=== PATIENT | male | born 1950 | race Caucasian/White ===

== ENCOUNTER 2017-08-08 17:26 | Inpatient (IN) ==
--- NOTE | 2017-08-08 17:31 | Emergency Department Note ---
Disposition Clinical Impression: Fistula Disposition: Admitted As Inpatient Condition: Fair Time of Disposition: 19:02 Abdominal Pain HPI - General Chief Complaint: ED Abdominal Pain Stated Complaint: abdominal pain Time Seen by Provider: 08/08/17 17:30 Source: patient Mode of arrival: EMS Limitations: no limitations Nursing Notes Reviewed: Yes Vital Signs Reviewed: Yes - History of Present Illness HPI Narrative: Patient is a 66-year-old male who presents to [facility] ED with a chief complaint of abdominal pain for the last 2 weeks. 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 States he started getting pain in his lower abdomen and over the last 2 days, he has noticed that he has been peeing out bubbles as well as having fevers up to 103.4. Admits to some nausea, no vomiting. No chest pain, difficulty breathing. Patient states he recently had a cardiac stent placed approximately 6 weeks ago. He is on Plavix. Also has a history of hypertension and hyperlipidemia. Pt Subjective Complaint: abdominal pain Onset (ago): day(s) Consistency: intermittent Location: suprapubic Pain Severity: moderate Quality: cramping Radiation: none Migration to: no migration Improves with: nothing Worsens with: nothing Associated symptoms: Reports: nausea, fever, chills, dysuria. Denies: vomiting , diarrhea Treatments prior to arrival: none - Related Data Home Medications Medication Instructions Recorded Confirmed Albuterol Sulfate [Albuterol 2 puff IH QID PRN 08/08/17 08/08/17 Inhaler] Aspirin Enteric Coated [Aspirin EC] 81 mg PO DAILY 08/08/17 08/08/17 Atorvastatin Calcium [Lipitor] 80 mg PO HS 08/08/17 08/08/17 Clopidogrel [Plavix] 75 mg PO DAILY 08/08/17 08/08/17 Lisinopril [Zestril] 5 mg PO DAILY 08/08/17 08/08/17 Methocarbamol [Robaxin] 500 mg PO Q6H PRN 08/08/17 08/08/17 Metoprolol [Lopressor] 12.5 mg PO BID 08/08/17 08/08/17 Nicotine Patch [Nicoderm] 14 mg TD DAILY 08/08/17 08/08/17 Sildenafil Citrate [Viagra] 100 mg PO AD PRN 09/26/17 09/26/17 Allergies Allergy/AdvReac Type Severity Reaction Status Date / Time azithromycin Allergy See Verified 08/08/17 17:35 Comments Penicillins Allergy See Verified 08/08/17 17:35 Comments All systems ED: reviewed and negative except as stated. Abdominal Pain PMH - Past Medical History Medical history: Reports: coronary artery disease, hyperlipidemia, hypertension Physical Exam - General Limitations: no limitations General appearance: alert, in no apparent distress - Head Head exam: atraumatic - Eye Eye exam: Present: normal appearance, EOMI - ENT ENT exam: normal exam, normal oropharynx, mucous membranes moist - Neck Neck exam: Present: normal inspection, full ROM, trachea midline - Chest Chest inspection: Present: normal inspection, symmetric chest wall rise - Respiratory Respiratory exam: Present: normal lung sounds bilaterally - Cardiovascular Cardiovascular exam: Present: regular rate, normal rhythm, normal heart sounds - Abdominal Exam Abdominal exam: Present: soft, Non-Tender. Absent: tenderness, distention, guarding, rebound, rigidity - Extremities Exam Extremities exam: Present: normal inspection, full ROM. Absent: tenderness, pedal edema - Back Exam Back exam: Present: normal inspection, full ROM. Absent: tenderness - Neurological Exam Neurological exam: Present: alert - Psychiatric Psychiatric exam: Present: normal affect, normal mood - Skin Skin exam: Present: warm, dry, intact, normal color Course Course Narrative: Patient seen and examined. Patient with likely fistula extending from the sigmoid to the bladder. There are surrounding inflammatory changes. This is consistent with Patient's lab work was done at the [facility] which shows a leukocytosis of 17.5. I discussed with surgery Dr. Thao. Would like patient to have a Back catheter as well as started on antibiotics. Patient has penicillin allergy so he was placed on ciprofloxacin and Flagyl. Patient has been admitted to the surgery service. Vital Signs Temperature 98.5 F 08/08/17 17:28 Pulse Rate 80 08/08/17 17:28 Respiratory Rate 16 08/08/17 17:28 Blood Pressure 102/63 08/08/17 17:28 O2 Sat by Pulse Oximetry 95 08/08/17 17:28 Temperature 98.5 F 08/08/17 17:28 Pulse Rate 68 08/08/17 18:30 Respiratory Rate 18 08/08/17 19:06 Blood Pressure 143/77 08/08/17 19:06 O2 Sat by Pulse Oximetry 100 08/08/17 18:30 Oxygen Delivery Oxygen Delivery Room Air Abdominal Pain - Medical Records Medical records reviewed: Yes I reviewed the patient's medical records. - Lab Data Lab results reviewed: Yes I reviewed the patient's lab results. - Radiology Data Radiology results reviewed: Yes I reviewed the patient's radiology results. Attestation Statement - Attestation Attestation: I, Hudson Herrera, examined this patient and my medical decision-making was reviewed with the ASSOCIATE ATTORNEY/PA/Advanced Practice Nurse/Resident Physician. I agree with the documented findings, disposition and treatment plan as described except to the extent set forth below. 66-year-old male presents emergency Department with concerns of pain to the lower abdomen. [facility] showing [facility] colovesicular [facility]. Patient states he has had dark brown urine and has pneumaturia over the few weeks. Patient was sent to [facility] for further care and evaluation and likely colonoscopy and cystoscopy. Patient will be admitted to the hospital for further care and evaluation. Patient has an allergy to penicillin, he was given Cipro and Flagyl in the emergency department.
[2017-08-08] MEDS ORDERED: MetroNIDAZOLE 500 MG/100 ML 500 MG/100 ML BAG IVPB ONE (18:10)
[2017-08-08] MEDS ORDERED: Ondansetron 4 MG/2 ML VIAL IVP ONE (20:38)
[2017-08-08] MEDS ORDERED: *HR* OxyCODONE/APAP 10/325 TABLET PO PRN ×2 (20:39→20:50)
[2017-08-08] MEDS ORDERED: Lidocaine Jelly 6ml 1 APPL/6 ML JEL.PF.APP MM ONE (20:50)
[2017-08-08] MEDS ORDERED: Ondansetron 4 MG/2 ML VIAL IVP PRN (20:55)
[2017-08-08] MEDS ORDERED: 0.9 % Sodium Chloride 1,000 ML IV ONE (21:01)
[2017-08-08] MEDS: Nicotine 14 MG PATCH.TD24 TD SCH (22:15)
[2017-08-08] MEDS: MetroNIDAZOLE 500 MG/100 ML 500 MG/100 ML BAG IVPB SCH (23:32)
[2017-08-08] MEDS: Albuterol 2.5 MG/3 ML NEBULIZER IH SCH (23:37)
[2017-08-09 05:52] LABS: Basophils % 0.1 %; Eosinophils % 0.1 %; Hematocrit 39.4 % (37.5-50.1); Hemoglobin 12.9 g/dL (12.9-16.9); Immature Granulocytes % 1.1 % (0-4); Lymphocytes # 0.4 K/mcL (0.6-4.6); Lymphocytes % 4.8 %; Mean Corpuscular HGB Conc 32.7 g/dL (31.6-35.5); Mean Corpuscular Hemoglobin 28.2 pg (28.0-33.3); Mean Corpuscular Volume 86.2 fL (83.0-100.0); Mean Platelet Volume 10.3 fL (9.4-12.4); Monocytes # 0.7 K/mcL (0.0-1.3); Monocytes % 9.6 %; Neutrophils # 6.3 K/mcL (1.6-8.9); Platelet Count 198 K/mcL (140-400); Red Blood Count 4.57 M/mcL (4.19-5.50); Red Cell Distribution Width 12.2 % (11.5-14.5); Segmented Neutrophils % 84.3 %
[2017-08-09 06:12] LABS: BUN/Creatinine Ratio 12 (6-26); Blood Urea Nitrogen 14 mg/dL (8-26); Calcium 8.9 mg/dL (8.6-10.8); Carbon Dioxide 24 mEq/L (19-29); Chloride 103 mEq/L (98-109); Glucose 111 mg/dL (70-99); Osmolality,Calculated 283 (280-300); Potassium 3.9 mEq/L (3.5-4.5); Sodium 136 mEq/L (136-145); eGFR For African Americans > 60 (> 60); eGFR For Non-African Americans > 60 (> 60)
--- NOTE | 2017-08-09 07:38 | Urology - Consult Note ---
Date of Encounter: 08/09/17 Time of Encounter: 07:36 - Assessment and Plan (1) Pneumaturia Current Visit: Yes Status: Acute Assessment and plan: From colovesical fistula (2) Colovesical fistula Current Visit: Yes Status: Acute Assessment and plan: I reviewed the CT images from the [place]. They include an abdominal pelvis CT scan with IV contrast. The images clearly show the site of fistula between the sigmoid colon and dome of the bladder. I feel the images are adequate for diagnosis and the patient does not require a CT urogram with CT cystogram. Still unknown etiology in regards to the cause of the fistula but I suspect diverticulitis based on his recurrent abdominal pain over the last [address] shows bladder wall thickening and there is a suggestion this could represent bladder malignancy. bladder wall thickening is expected in the presence of a fistula and I feel that malignancy is very low on the differential diagnosis. He does have a long history of smoking which can increase his risk of urothelial malignancy however he describes no gross hematuria. Normally similar patients do not require a cystoscopy prior to surgical intervention because there is low yield for pertinent findings as the bladder tends to be extremely abnormal and the location of the fistula. We'll discuss with general surgery team and be available for any assistance. Urology CN:HPI Consult date: 08/08/17 History of present illness: new pt to urology practice. called by Dr Thao last night for cath placement. nurses able to place cath last night with urojet. Main issue is pneumaturia and fever. States the last 3 weeks he is having on and off low-grade temperatures and not feeling well. Began to experience pneumaturia the last 1-2 days. Denies gross hematuria or stool material and urine. States for the last 3 years he has had intermittent sharp abdominal pains that resolved. Denies ever being diagnosed with Crohn's disease, ulcerative colitis, colon cancer,. He underwent a normal colonoscopy 5 years ago at the [facility]. Past Med Surg Social Fam HX - Past Medical History Medical history: coronary artery disease, hyperlipidemia, hypertension Psychiatric history: no psych history - Social History Smoking Status: Current every day smoker Packs per day: 1/2 Smokeless Tobacco Status: Yes Alcohol use: occasionally Drug use: none Medications and Allergies Albuterol Sulfate [Albuterol Inhaler] 2 puff IH QID PRN 08/08/17 [History] Aspirin Enteric Coated [Aspirin EC] 81 mg PO DAILY 08/08/17 [History] Atorvastatin Calcium [Lipitor] 80 mg PO HS 08/08/17 [History] Clopidogrel [Plavix] 75 mg PO DAILY 08/08/17 [History] Lisinopril [Zestril] 5 mg PO DAILY 08/08/17 [History] Methocarbamol [Robaxin] 500 mg PO Q6H PRN 08/08/17 [History] Metoprolol [Lopressor] 12.5 mg PO BID 08/08/17 [History] Nicotine Patch [Nicoderm] 14 mg TD DAILY 08/08/17 [History] Sildenafil Citrate [Viagra] 100 mg PO AD PRN 08/08/17 [History] 3 Allergy/AdvReac Type Severity Reaction Status Date / Time azithromycin Allergy See Verified 08/08/17 17:35 Comments Penicillins Allergy See Verified 08/08/17 17:35 Comments Review of Systems - Constitutional chills, fatigue, fever(s) - EENT Nose, mouth and throat: no dizziness - Cardiovascular no chest pain - Respiratory no cough - Gastrointestinal abdominal pain - Genitourinary dysuria, no hematuria - Musculoskeletal no back pain - Integumentary no erythema - Neurological no confusion - Psychiatric no anxiety - Hematologic/Lymphatic no easy bleeding - Allergic/Immunologic no throat swelling Exam Initial Vital Signs Temp Pulse Resp BP Pulse Ox 98.5 F 80 16 102/63 95 08/08/17 17:28 08/08/17 17:28 08/08/17 17:28 08/08/17 17:28 08/08/17 17:28 - General physical appearance Present: well developed, no distress - Eyes Present: PERRL - ENT Present: normal nares - Neck Present: no masses - Respiratory Present: normal respiratory effort - Cardiovascular Cardiovascular exam IM: RRR - Abdomen Abdomen: Present: soft. Absent: distended (No abdominal tenderness on deep palpation) - Integumentary Present: no rash, no growths, no abnormal pigmentation - Neurologic Present: normal coordination. Absent: disoriented, confused - Additional Findings Back catheter draining clear urine was slightly kacey color Urology Results - Labs 08/09/17 05:05 08/09/17 05:05 Abnormal lab results Lymphocytes # 0.4 K/mcL (0.6-4.6) L 08/09/17 05:05 Glucose 111 mg/dL (70-99) H 08/09/17 05:05 POC Glucose 117 (58-89) H 08/09/17 05:10 Diabetes panel 08/09/17 Range/Units 05:05 Sodium 136 (136-145) mEq/L Potassium 3.9 (3.5-4.5) mEq/L Chloride 103 (98-109) mEq/L Carbon Dioxide 24 (19-29) mEq/L BUN 14 (8-26) mg/dL Creatinine 1.13 (0.72-1.25) mg/dL Glucose 111 H (70-99) mg/dL Calcium 8.9 (8.6-10.8) mg/dL Calcium panel 08/09/17 Range/Units 05:05 Calcium 8.9 (8.6-10.8) mg/dL Pituitary panel 08/09/17 Range/Units 05:05 Sodium 136 (136-145) mEq/L Potassium 3.9 (3.5-4.5) mEq/L Chloride 103 (98-109) mEq/L Carbon Dioxide 24 (19-29) mEq/L BUN 14 (8-26) mg/dL Creatinine 1.13 (0.72-1.25) mg/dL Glucose 111 H (70-99) mg/dL Calcium 8.9 (8.6-10.8) mg/dL Adrenal panel 08/09/17 Range/Units 05:05 Sodium 136 (136-145) mEq/L Potassium 3.9 (3.5-4.5) mEq/L Chloride 103 (98-109) mEq/L Carbon Dioxide 24 (19-29) mEq/L BUN 14 (8-26) mg/dL Creatinine 1.13 (0.72-1.25) mg/dL Glucose 111 H (70-99) mg/dL Calcium 8.9 (8.6-10.8) mg/dL All other labs normal. Consult Discharge Plan - Plan Referrals: [facility] [Outside]
[2017-08-09] MEDS: Albuterol 2.5 MG/3 ML NEBULIZER IH SCH ×3 (07:45→23:19)
[2017-08-09] MEDS: Nicotine 14 MG PATCH.TD24 TD SCH (09:33)
[2017-08-09] MEDS: Aspirin 81 MG TAB.CHEW PO SCH (09:33)
[2017-08-09] MEDS: MetroNIDAZOLE 500 MG/100 ML 500 MG/100 ML BAG IVPB SCH ×2 (09:34→15:33)
--- NOTE | 2017-08-09 09:37 | Cardiology Consult Note ---
<Stephen Romero - Last Filed: 08/09/17 14:13> Date of Encounter: 08/09/17 Time of Encounter: 09:35 Assessment and Plan (1) CAD (coronary artery disease) Current Visit: Yes Status: Acute Patient has a history of MO and stent placement 6 weeks ago. Patient had his stent placed at [facility] in [place]. Patient denies any chest pain, worsening of his shortness of breath beyond baseline, palpitations or any other cardiac complaints. Currently on plavix and aspirin. Cardiology was consulted for recommendation on stopping plavix prior to surgery since the patient had a recent catheterization with stent placement. Further medical records have been requested from [facility] in [place] where the patient states he had his stent placed. If the surgery is not emergent the plavix can be stopped and then lovenox started for 5 days prior to surgery Qualifiers: Coronary Disease-Associated Artery/Lesion type: unspecified vessel or lesion type [place] vs. transplanted heart: unspecified whether [place] or transplanted heart Associated angina: angina presence unspecified Qualified Code(s): I25.10 - Atherosclerotic heart disease of [place] coronary artery without angina pectoris (2) HTN (hypertension) Current Visit: Yes Status: Acute The patient has a history of HTN and takes lisinopril and metoprolol. The patients most recent BP was 113/56. His blood pressure appears to be well controlled at this time. Continue with current medical management. Qualifiers: Hypertension type: unspecified Qualified Code(s): I10 - Essential (primary ) hypertension (3) Hyperlipidemia Current Visit: Yes Status: Acute Patient has a history of high cholesterol and is currently taking atorvastatin. Continue with current medical managment. Qualifiers: Hyperlipidemia type: unspecified Qualified Code(s): E78.5 - Hyperlipidemia , unspecified (4) Colovesical fistula Current Visit: Yes Status: Acute Patient was diagnosed with a Colovesical fistula. This is being followed by surgery and urology. (5) Pneumaturia Current Visit: Yes Status: Acute Patient had bubbles in his urine and is likely from the colovesicular fistula. Back catheter in place. Urology has been consulted on this patient. (6) Tobacco abuse Current Visit: Yes Status: Acute Patient has a long standing history of tobacco use. States that he had smoked 2 ppd for 40 years until his recent MO and stent placement. Since his MO he has been smoking 3-4 cigarettes per day. He has a perscription for nicoderm patches but states he has not started using them yet. A Nicoderm patch is ordered for while the patient is in the hospital. Discussion w patient/family: The assessment and plan as outlined above was discussed with the patient and/or family members who expressed understanding and agreement. All questions were answered. Thank you for involving us in the care of your patient. Please call with any questions. History of Present Illness Consult date: 08/09/17 Requesting physician: Alexandria Barillas Consult reason: Recommendation for anticoagulation for surgery Chief complaint: Abdominal Pain/Plavix recommendation History of present illness: Mr. Alamo is a 66 year old male that presented to the [facility] with suprapubic abdominal pain, fever and pneumaturia. Patient had been having symptoms for approximately 1 week. He described the pain as achey and rated it as 5/10. Patient also states that he was having bubbles in his urine. Currently rates his abdominal pain as a 2/10. CT scan was obtained at the [facility] which reportedly showed a possible colovesical fistula. The patient was then transfer to the ER at [place]. Cardiology was consulted for recommendation of the patients plavix for surgery. Six weeks ago the patient states that he was just sitting around his house and developed a stabbing pain all over his chest. He stated that the pain radiated to his left shoulder, arm and into his back. He rated the pain as an 8/10. Patient denies taking anything for his chest pain. He states that he did become short of breath, diaphoretic but had no nausea or vomiting with this episode. Patient states that he then went to [facility] and then was transfered to [facility] where he had one stent placed. The patient is unsure of which vessel the stent was in or if it was CATRACHO or a bare metal stent. However his girlfriend thought it was on the right side. Patient states that he had been having chest pain like this for 2 weeks prior to his MO and not feeling well. He also states that he has been having intermittent chest pain for the past 2 years and felt like the pain was similar to all other episodes of chest pain but was just a more intense pain. Patient states that he had no known cardiac history prior to having his MO and stent placed. Patient states he was suppose to follow up with a cokeman 30 days after his stent being placed but has been unable to follow up because of insurance reasons and has not been able to see a cokeman at the [facility]. Patient currently denies any chest pain, shortness of breath, or palpitations. Past Med Surg Social Fam HX - Past Medical History Medical history: coronary artery disease, hyperlipidemia, hypertension Psychiatric history: no psych history - Social History Smoking Status: Current every day smoker Packs per day: 1/2 Smokeless Tobacco Status: Yes Alcohol use: occasionally Drug use: none Medications and Allergies Albuterol Sulfate [Albuterol Inhaler] 2 puff IH QID PRN 08/08/17 [History] Aspirin Enteric Coated [Aspirin EC] 81 mg PO DAILY 08/08/17 [History] Atorvastatin Calcium [Lipitor] 80 mg PO HS 08/08/17 [History] Clopidogrel [Plavix] 75 mg PO DAILY 08/08/17 [History] Lisinopril [Zestril] 5 mg PO DAILY 08/08/17 [History] Methocarbamol [Robaxin] 500 mg PO Q6H PRN 08/08/17 [History] Metoprolol [Lopressor] 12.5 mg PO BID 08/08/17 [History] Nicotine Patch [Nicoderm] 14 mg TD DAILY 08/08/17 [History] Sildenafil Citrate [Viagra] 100 mg PO AD PRN 08/08/17 [History] 3 Allergy/AdvReac Type Severity Reaction Status Date / Time azithromycin Allergy See Verified 08/08/17 17:35 Comments Penicillins Allergy See Verified 08/08/17 17:35 Comments All Systems Review: A 10-system review of systems was performed and is negative for pertinent findings except as documented above in the HPI. - Constitutional Constitutional: chills, fever(s) - Cardiovascular Cardiovascular: dyspnea on exertion, no chest pain at rest, no chest pain with exertion, no dyspnea at rest, no irregular heart rhythm ( ), no leg edema, no palpitations - Respiratory Respiratory: dyspnea (Patient state that he has shortness of breath due to his COPD) - Gastrointestinal Gastrointestinal: abdominal pain (suprapubic), no hematochezia, no melena, no nausea - Genitourinary Genitourinary: other (Dark colored urine with bubbles in it) Physical Examination Vital Signs, Last 4 Hours Temp Pulse Resp BP Pulse Ox 08/09/17 06:39 100.4 F H 81 18 110/54 94 General: Conversant, No Apparent Distress HEENT: Atraumatic, Normocephaly, Mucus Membranes Moist Neck: No JVD, Normal carotid pulses Cardiac: Reg Rate and Rhythm, Normal S1 and S2, No Murmur Lungs: Normal Breath Sounds, No Wheeze, Rales, Rhonchi Neuro: Alert and responsive, No focal deficits noted Abdomen: Soft, Other (Mild tenderness of suprapubic area) Skin: No rashes noted on visualized skin Extremities: No Clubbing, No Cyanosis, No Edema, Normal Pulses Results 08/09/17 05:05 08/09/17 05:05 Lab Results 08/09/17 08/09/17 05:05 05:05 WBC 7.5 Hgb 12.9 Hct 39.4 Plt Count 198 Sodium 136 Potassium 3.9 Chloride 103 Carbon Dioxide 24 BUN 14 Creatinine 1.13 Glucose 111 H Calcium 8.9 Consult Discharge Plan - Plan Referrals: [facility] [Outside] <Hussein Bird - Last Filed: 08/09/17 14:45> Date of Encounter: 08/09/17 Assessment and Plan Discussion w patient/family: The assessment and plan as outlined above was discussed with the patient and/or family members who expressed understanding and agreement. All questions were answered. Thank you for involving us in the care of your patient. Please call with any questions. History of Present Illness History of present illness: Mr. Alamo is a 66 year old male All Systems Review: A 10-system review of systems was performed and is negative for pertinent findings except as documented above in the HPI. Physical Examination Vital Signs, Last 4 Hours Temp Pulse Resp BP Pulse Ox 08/09/17 11:09 100.2 F H 76 18 113/56 94 Results 08/09/17 05:05 08/09/17 05:05 Lab Results 08/09/17 08/09/17 05:05 05:05 WBC 7.5 Hgb 12.9 Hct 39.4 Plt Count 198 Sodium 136 Potassium 3.9 Chloride 103 Carbon Dioxide 24 BUN 14 Creatinine 1.13 Glucose 111 H Calcium 8.9 - Attending Attestation PT seen and examined independently, chart reviewed, essentially agree with findings listed, my evaluation as follows: CC bubbles in urine Pt complains of diffuse abdominal pain, worsening over the last two weeks, most prominent in bilat lower quadrants, 6/10 at most severe, comes and goes, worse with activity, improves with rest, has improved since hospital admission. Pt also complains of bubbles in urine when he goes to the bathroom. Abdominal pain has improved following placement of folely catheter. He also reports approximately six weeks ago experienced precordial chest pain, 8/10, provoked by exercise, lasting up to ten minutes, relieved with rest assoicated with shortness of breath, for which he was evaluated in [facility], transferred to [facility] for urgent LHC/possibe, found to have severe single vessel disease, had stent placement in unknown vessel, PT is unable to identify CATRACHO vx bare metal at this time. Chest pain has resolved following PCI He was able to increase exercise back to full activities of daily living without provocation of symptoms. PE: Agree with findings as listed: IMP: 1. Anal fistula, anticipating surgical intervention, pt is at low risk for planned procedure from cardiac perspective 2. Dual antiplatelet tx following stent placement x 1 year, will switch to lovenox x 5 days before elective procedure. 3. CAD: severe single vessel disease with recent PCI at [facility], old records requested, unclear if had bare metal or CATRACHO, records requested, will begin lovenox, hold plavix, proceed with surgical intervention in five days. When previous records arrive, if has bare metal stent, has been thirty days and could stop lovenox and proceed with surgery in five days. If pt has drug eluting stent, recommend resume plavix as soon as surgically possible post op with 300mg loading dose x 1, then resume 75 mg q d. l
--- NOTE | 2017-08-09 10:30 | General Surg History&Physical ---
<Alexandria Barillas - Last Filed: 08/09/17 18:18> Date of Encounter: 08/09/17 Time of Encounter: 06:55 Assessment and Plan (1) Colovesical fistula Current Visit: Yes Status: Acute Patient has a chief complaint of suprapubic abdominal pain for [address] scan at [place] showed colovestical fistula, most likely due to diverticulosis. Patient has been febrile and was started on Cipro and Flagyl. Urology was consulted and believes patient does not require a CT urogram and CT cystogram as images clearly show the site of fistula between the sigmoid colon and the dome of the bladder. Patient will require surgery to resolve the fistula. Cardiology was consulted due to patient having recent cardiac catheter with stent placement 6 weeks ago and is on Plavix and aspirin. Cardiology recommended stopping Plavix and starting Lovenox for 5 days until surgery. Plan: - Colonoscopy on Monday will start bowel prep tomorrow - Cardiology and UG already consulted - Plavix stopped and Lovenox initiated. - plan for OR on Monday (2) Pneumaturia Current Visit: Yes Status: Acute Secondary to cholovestical fistula. CT of the abdomen and pelvis shows abnormal gas seen within the bladder. Lea currently present. Will plan for surgical repair on Monday. (3) CAD (coronary artery disease) Current Visit: Yes Status: Acute Patient heart catheter with cardiac stent placed 6 weeks ago. Patient is on Plavix and aspirin for therapy. Per Cardiology's recommendations, plavix stopped 08/09 and Lovenox added. Qualifiers: Coronary Disease-Associated Artery/Lesion type: unspecified vessel or lesion type [place] vs. transplanted heart: unspecified whether [place] or transplanted heart Associated angina: angina presence unspecified Qualified Code(s): I25.10 - Atherosclerotic heart disease of [place] coronary artery without angina pectoris (4) HTN (hypertension) Current Visit: Yes Status: Acute We will continue home medications of metoprolol 12.5 mg by mouth twice a day and lisinopril 5 mg by mouth daily. Qualifiers: Hypertension type: unspecified Qualified Code(s): I10 - Essential (primary ) hypertension (5) Hypercholesteremia Current Visit: Yes Status: Acute We will continue home medication of Lipitor 80 mg by mouth daily. (6) Tobacco abuse Current Visit: Yes Status: Acute Patient given nicotine patch 14 mg daily. (7) Diverticulosis Current Visit: Yes Status: Acute CT of the abdomen and pelvis from the [place] shows extensive diverticulosis of the sigmoid colon and to a lesser degree the remainder of the colon. Most likely cause of the colovesticular fistula. Qualifiers: Diverticulosis site: diverticulosis of large intestine Qualified Code(s): K57.30 - Diverticulosis of large intestine without perforation or abscess without bleeding History of Present Illness HPI: Mr. Alamo is a 66 year old male with a past medical history of cardiac stent 6 weeks ago, hypertension, hyperlipidemia came in with a chief complaint of abdominal pain 2 weeks. Patient was a [place] transfer to [place] ED for a CT finding of a vesticulo-sigmoid fistula admitted to the surgical service. Patient states that he has been having abdominal pain for the past 2 weeks with associated nausea, vomiting. Four days ago, patient began to see bubbles in his urine and worsening of lower abdominal pain. Associated fevers 103.4. Patient denies SOB, chest pain, dizziness. CT of abdomen from [place] showed bladder wall thickening up to 1 cm in the cradiad left aspect. Abnormal gas in the bladder. Lucency consistent with air in a fistulous tract between the abnormally thickened bladder and the EKG sent undersurface of the sigmoid colon. There is extensive diverticulosis of the sigmoid colon into a lesser degree the remainder of the colon. Additionally there is a wall thickening of the sigmoid colon in surrounding strandy inflammatory change between the sigmoid colon and the bladder. Prostate is enlarged and heterogeneous. There is a moderate size hiatal hernia. Past Med Surg Social Fam HX - Past Medical History Medical history: coronary artery disease, hyperlipidemia, hypertension Psychiatric history: no psych history - Social History Smoking Status: Current every day smoker Packs per day: 1/2 Smokeless Tobacco Status: Yes Alcohol use: occasionally Drug use: none Medications and Allergies Albuterol Sulfate [Albuterol Inhaler] 2 puff IH QID PRN 08/08/17 [History] Aspirin Enteric Coated [Aspirin EC] 81 mg PO DAILY 08/08/17 [History] Atorvastatin Calcium [Lipitor] 80 mg PO HS 08/08/17 [History] Clopidogrel [Plavix] 75 mg PO DAILY 08/08/17 [History] Lisinopril [Zestril] 5 mg PO DAILY 08/08/17 [History] Methocarbamol [Robaxin] 500 mg PO Q6H PRN 08/08/17 [History] Metoprolol [Lopressor] 12.5 mg PO BID 08/08/17 [History] Nicotine Patch [Nicoderm] 14 mg TD DAILY 08/08/17 [History] Sildenafil Citrate [Viagra] 100 mg PO AD PRN 08/08/17 [History] 3 Allergy/AdvReac Type Severity Reaction Status Date / Time azithromycin Allergy See Verified 08/08/17 17:35 Comments Penicillins Allergy See Verified 08/08/17 17:35 Comments Review of Systems All systems PM: A 10-system review of systems was performed and is negative for pertinent findings except as documented above in the HPI. - Constitutional fever(s) General Surgery Exam Initial Vital Signs Temp Pulse Resp BP Pulse Ox 98.5 F 80 16 102/63 95 08/08/17 17:28 08/08/17 17:28 08/08/17 17:28 08/08/17 17:28 08/08/17 17:28 - Additional Findings Constitutional: Alert, in no acute distress, well nourished, well developed. Head: Normocephalic, atraumatic, normal contour and symmetric, no masses, lesions or scars Heart: Normal, regular rate and rhythm, no murmurs Lungs: + scattered wheezing, no , rales, or rhonchi Abdomen: tender suprapubically, Soft, nondistended, and no masses palpable, bowel sounds present and normal, no guarding or rigidity. Extremities: No clubbing, cyanosis, or edema, radial pulse +2/4, capillary refill <2sec. Skin: Skin warm and dry, no lesions, no rashes, no jaundice : lea present at urethral meatus, scrotum without edema, Neurologic: Cranial nerves II through XII grossly intact, no focal deficits, strength within normal limits in all extremities Psych: Cooperative with exam, good eye contact, cognitive function intact, judgment good insight good, speech clear, thought process logical, and goal directed Results - Labs 08/09/17 05:05 08/09/17 05:05 Abnormal lab results Lymphocytes # 0.4 K/mcL (0.6-4.6) L 08/09/17 05:05 Glucose 111 mg/dL (70-99) H 08/09/17 05:05 POC Glucose 117 (58-89) H 08/09/17 05:10 Diabetes panel 08/09/17 Range/Units 05:05 Sodium 136 (136-145) mEq/L Potassium 3.9 (3.5-4.5) mEq/L Chloride 103 (98-109) mEq/L Carbon Dioxide 24 (19-29) mEq/L BUN 14 (8-26) mg/dL Creatinine 1.13 (0.72-1.25) mg/dL Glucose 111 H (70-99) mg/dL Calcium 8.9 (8.6-10.8) mg/dL Calcium panel 08/09/17 Range/Units 05:05 Calcium 8.9 (8.6-10.8) mg/dL Pituitary panel 08/09/17 Range/Units 05:05 Sodium 136 (136-145) mEq/L Potassium 3.9 (3.5-4.5) mEq/L Chloride 103 (98-109) mEq/L Carbon Dioxide 24 (19-29) mEq/L BUN 14 (8-26) mg/dL Creatinine 1.13 (0.72-1.25) mg/dL Glucose 111 H (70-99) mg/dL Calcium 8.9 (8.6-10.8) mg/dL Adrenal panel 08/09/17 Range/Units 05:05 Sodium 136 (136-145) mEq/L Potassium 3.9 (3.5-4.5) mEq/L Chloride 103 (98-109) mEq/L Carbon Dioxide 24 (19-29) mEq/L BUN 14 (8-26) mg/dL Creatinine 1.13 (0.72-1.25) mg/dL Glucose 111 H (70-99) mg/dL Calcium 8.9 (8.6-10.8) mg/dL All other labs normal. <Brice Thao - Last Filed: 08/11/17 15:25> Date of Encounter: 08/09/17 History of Present Illness HPI: Mr. Alamo is a 66 year old male Review of Systems All systems PM: A 10-system review of systems was performed and is negative for pertinent findings except as documented above in the HPI. General Surgery Exam Initial Vital Signs Temp Pulse Resp BP Pulse Ox 98.5 F 80 16 102/63 95 08/08/17 17:28 08/08/17 17:28 08/08/17 17:28 08/08/17 17:28 08/08/17 17:28 Results - Labs 08/11/17 05:11 08/11/17 05:11 Abnormal lab results Hgb 11.9 g/dL (12.9-16.9) L 08/11/17 05:11 Hct 35.8 % (37.5-50.1) L 08/11/17 05:11 MCH 27.9 pg (28.0-33.3) L 08/11/17 05:11 Monocytes # 1.4 K/mcL (0.0-1.3) H 08/11/17 05:11 Sodium 133 mEq/L (136-145) L 08/11/17 05:11 Potassium 3.3 mEq/L (3.5-4.5) L 08/11/17 05:11 BUN 7 mg/dL (8-26) L 08/11/17 05:11 Glucose 105 mg/dL (70-99) H 08/11/17 05:11 POC Glucose 104 (58-89) H 08/11/17 11:41 Calculated Osmolality 274 (280-300) L 08/11/17 05:11 Diabetes panel 08/11/17 Range/Units 05:11 Sodium 133 L (136-145) mEq/L Potassium 3.3 L (3.5-4.5) mEq/L Chloride 102 (98-109) mEq/L Carbon Dioxide 23 (19-29) mEq/L BUN 7 L (8-26) mg/dL Creatinine 0.89 (0.72-1.25) mg/dL Glucose 105 H (70-99) mg/dL Calcium 8.8 (8.6-10.8) mg/dL Calcium panel 08/11/17 Range/Units 05:11 Calcium 8.8 (8.6-10.8) mg/dL Pituitary panel 08/11/17 Range/Units 05:11 Sodium 133 L (136-145) mEq/L Potassium 3.3 L (3.5-4.5) mEq/L Chloride 102 (98-109) mEq/L Carbon Dioxide 23 (19-29) mEq/L BUN 7 L (8-26) mg/dL Creatinine 0.89 (0.72-1.25) mg/dL Glucose 105 H (70-99) mg/dL Calcium 8.8 (8.6-10.8) mg/dL Adrenal panel 08/11/17 Range/Units 05:11 Sodium 133 L (136-145) mEq/L Potassium 3.3 L (3.5-4.5) mEq/L Chloride 102 (98-109) mEq/L Carbon Dioxide 23 (19-29) mEq/L BUN 7 L (8-26) mg/dL Creatinine 0.89 (0.72-1.25) mg/dL Glucose 105 H (70-99) mg/dL Calcium 8.8 (8.6-10.8) mg/dL All other labs normal. - Attending Attestation I examined this patient and my medical decision-making was reviewed with the Resident Physician. I agree with the documented findings, disposition and treatment plan as described except to the extent set forth below. The patient is seen and evaluated with the resident. I personally reviewed his CT scan. The patient's findings are consistent with colovesical fistula. Lea catheter will be placed. After a period of antibiotics the patient will likely require resection of colovesical fistula. Management of the bladder portion will be assessed by urology. Brice Thao MD FACS
[2017-08-09] MEDS: *HR* HYDROmorphone (PF) 1 MG/ML SYRINGE IVP PRN ×2 (11:38→17:15)
[2017-08-09] MEDS: *HR* Enoxaparin 80 MG/0.8 ML SYRINGE SQ SCH (17:14)
[2017-08-09] MEDS ORDERED: Ibuprofen 600 MG TABLET PO ONE (20:32)
[2017-08-10] MEDS: MetroNIDAZOLE 500 MG/100 ML 500 MG/100 ML BAG IVPB SCH ×3 (01:52→15:24)
[2017-08-10 05:41] LABS: Basophils % 0.4 %; Eosinophils # 0.1 K/mcL (0.0-0.6); Eosinophils % 1.9 %; Hematocrit 34.8 % (37.5-50.1); Hemoglobin 11.6 g/dL (12.9-16.9); Immature Granulocytes % 1.4 % (0-4); Lymphocytes # 1.2 K/mcL (0.6-4.6); Lymphocytes % 24.6 %; Mean Corpuscular HGB Conc 33.3 g/dL (31.6-35.5); Mean Corpuscular Hemoglobin 28.5 pg (28.0-33.3); Mean Corpuscular Volume 85.5 fL (83.0-100.0); Monocytes # 0.7 K/mcL (0.0-1.3); Monocytes % 15.1 %; Neutrophils # 2.7 K/mcL (1.6-8.9); Platelet Count 204 K/mcL (140-400); Red Blood Count 4.07 M/mcL (4.19-5.50); Red Cell Distribution Width 12.1 % (11.5-14.5); Segmented Neutrophils % 56.6 %
[2017-08-10 05:56] LABS: BUN/Creatinine Ratio 11 (6-26); Blood Urea Nitrogen 12 mg/dL (8-26); Calcium 8.7 mg/dL (8.6-10.8); Carbon Dioxide 23 mEq/L (19-29); Chloride 104 mEq/L (98-109); Glucose 105 mg/dL (70-99); Osmolality,Calculated 280 (280-300); Phosphorous 3.1 mg/dL (2.3-4.7); Potassium 3.4 mEq/L (3.5-4.5); Sodium 135 mEq/L (136-145); eGFR For African Americans > 60 (> 60); eGFR For Non-African Americans > 60 (> 60)
[2017-08-10] MEDS: Albuterol 2.5 MG/3 ML NEBULIZER IH SCH ×3 (07:42→22:50)
[2017-08-10] MEDS: *HR* HYDROmorphone (PF) 1 MG/ML SYRINGE IVP PRN ×2 (08:05→13:44)
[2017-08-10] MEDS: Aspirin 81 MG TAB.CHEW PO SCH (08:25)
[2017-08-10] MEDS: Nicotine 14 MG PATCH.TD24 TD SCH (08:26)
--- NOTE | 2017-08-10 08:49 | Cardiology Progress Note ---
<Stephen Romero - Last Filed: 08/10/17 12:01> Date of Encounter: 08/10/17 Time of Encounter: 08:46 Assessment and Plan (1) CAD (coronary artery disease) Current Visit: Yes Status: Acute Patient has a history of MN and stent placement 6 weeks ago. Patient had his stent placed at [facility] in [place]. Patient denies any chest pain, worsening of his shortness of breath beyond baseline, palpitations or any other cardiac complaints. Currently on plavix and aspirin. Cardiology was consulted for recommendation on stopping plavix prior to surgery since the patient had a recent catheterization with stent placement. Further medical records have been obtained from [facility] in [place] where the patient states he had his stent placed. Per the report there was a CATRACHO stent placed inthe proximal LAD. If the surgery is not emergent the plavix can be stopped and then lovenox started for 5 days prior to surgery. Qualifiers: Coronary Disease-Associated Artery/Lesion type: unspecified vessel or lesion type [place] vs. transplanted heart: unspecified whether [place] or transplanted heart Associated angina: angina presence unspecified Qualified Code(s): I25.10 - Atherosclerotic heart disease of [place] coronary artery without angina pectoris (2) HTN (hypertension) Current Visit: Yes Status: Acute The patient has a history of HTN and takes lisinopril and metoprolol. The patients most recent BP was 107/66. His blood pressure appears to be well controlled at this time. Continue with current medical management. Qualifiers: Hypertension type: unspecified Qualified Code(s): I10 - Essential (primary ) hypertension (3) Hyperlipidemia Current Visit: Yes Status: Acute Patient has a history of high cholesterol and is currently taking atorvastatin. Continue with current medical managment. Qualifiers: Hyperlipidemia type: unspecified Qualified Code(s): E78.5 - Hyperlipidemia , unspecified (4) Colovesical fistula Current Visit: Yes Status: Acute Patient was diagnosed with a Colovesical fistula. My understanding per surgery note is that they are planning for surgery on Monday. This is being followed by surgery and urology. (5) Pneumaturia Current Visit: Yes Status: Acute Patient had bubbles in his urine and is likely from the colovesicular fistula. Back catheter in place. Urology has been consulted on this patient. (6) Tobacco abuse Current Visit: Yes Status: Acute Patient has a long standing history of tobacco use. States that he had smoked 2 ppd for 40 years until his recent MN and stent placement. Since his MN he has been smoking 3-4 cigarettes per day. He has a perscription for nicoderm patches but states he has not started using them yet. A Nicoderm patch is ordered for while the patient is in the hospital. Discussion w patient/family: The assessment and plan as outlined above was discussed with the patient and/or family members who expressed understanding and agreement. All questions were answered. Thank you for involving us in the care of your patient. Please call with any questions. Subjective Principal diagnosis: Colovesical Fistula Interval history: Patient states that he did well overnight. He states that he is feeling well at this time. Patient denies having any abdominal pain while laying in bed. Patient denies having any chest pain, worsening of his shortness of breath, or palpitations. Patient does states that he has not had a bowel movement while he has been here. He also stated he has a cough that is worse in the mornings. He did feel like he had a fever last night. Otherwise the patient states that he is feeling well and has no complaints related to his heart. Objective Vital Signs, Last 4 Hours Temp Pulse Resp BP Pulse Ox 08/10/17 08:30 63 08/10/17 06:44 97.4 F L 59 15 107/66 96 General: Conversant, No Apparent Distress HEENT: Atraumatic, Normocephaly Neck: No JVD, Normal carotid pulses Cardiac: Reg Rate and Rhythm, Normal S1 and S2, No Murmur Lungs: Normal Breath Sounds, No Wheeze, Rales, Rhonchi Neuro: Alert and responsive, No focal deficits noted Abdomen: Soft, Other (Mild tenderness in the suprapubic area) Skin: No rashes noted on visualized skin Extremities: No Clubbing, No Cyanosis, No Edema, Normal Pulses Results 08/10/17 05:22 08/10/17 05:22 Lab Results 08/10/17 08/10/17 05:22 05:22 WBC 4.8 Hgb 11.6 L Hct 34.8 L Plt Count 204 Sodium 135 L Potassium 3.4 L Chloride 104 Carbon Dioxide 23 BUN 12 Creatinine 1.09 Glucose 105 H Calcium 8.7 Magnesium 2.0 - Imaging and Cardiology Echo: report reviewed Cardiac cath: report reviewed - VTE Documentation of Mechanical Device: Intermittent pneumatic compression device Consult Discharge Plan - Plan Referrals: [facility] [Outside] <Hussein Bird - Last Filed: 08/10/17 19:39> Date of Encounter: 08/10/17 Time of Encounter: 16:20 Assessment and Plan (1) CAD (coronary artery disease) Current Visit: Yes Status: Acute Patient has a history of MN and stent placement 6 weeks ago. Patient had his stent placed at [facility] in [place]. Patient denies any chest pain, worsening of his shortness of breath beyond baseline, palpitations or any other cardiac complaints. Currently on plavix and aspirin. Cardiology was consulted for recommendation on stopping plavix prior to surgery since the patient had a recent catheterization with stent placement. Further medical records have been obtained from [facility] in [place] where the patient states he had his stent placed. Per the report there was a CATRACHO stent placed inthe proximal LAD. If the surgery is not emergent the plavix can be stopped and then lovenox started for 5 days prior to surgery. Qualifiers: Coronary Disease-Associated Artery/Lesion type: [place] artery [place] vs. transplanted heart: [place] heart Associated angina: with stable angina Qualified Code(s): I25.118 - Atherosclerotic heart disease of [place] coronary artery with other forms of angina pectoris Discussion w patient/family: The assessment and plan as outlined above was discussed with the patient and/or family members who expressed understanding and agreement. All questions were answered. Thank you for involving us in the care of your patient. Please call with any questions. Subjective Interval history: Agree with above. Results 08/10/17 05:22 08/10/17 05:22 Lab Results 08/10/17 08/10/17 05:22 05:22 WBC 4.8 Hgb 11.6 L Hct 34.8 L Plt Count 204 Sodium 135 L Potassium 3.4 L Chloride 104 Carbon Dioxide 23 BUN 12 Creatinine 1.09 Glucose 105 H Calcium 8.7 Magnesium 2.0 - Imaging and Cardiology Cardiac cath: other ([facility] reports from [facility], CATRACHO placed proximal LAD)
[2017-08-10] MEDS: *HR* Enoxaparin 80 MG/0.8 ML SYRINGE SQ SCH ×2 (08:58→17:35)
--- NOTE | 2017-08-10 13:26 | General Surgery Progress Note ---
<Alexandria Barillas - Last Filed: 08/10/17 12:58> Date of Encounter: 08/10/17 Time of Encounter: 09:30 - Assessment and Plan (1) Colovesical fistula Current Visit: Yes Status: Acute Patient has a chief complaint of suprapubic abdominal pain for [address] scan [place] showed colovestical fistula, most likely due to diverticulosis. Patient has been febrile and was started on Cipro and Flagyl. Urology was consulted and believes patient does not require a CT urogram and CT cystogram as images clearly show the site of fistula between the sigmoid colon and the dome of the bladder. Patient will require surgery to resolve the fistula. Cardiology was consulted due to patient having recent cardiac catheter with stent placement 6 weeks ago and is on Plavix and aspirin. Cardiology recommended stopping Plavix and starting Lovenox for 5 days until surgery. Plan: - Colonoscopy on Monday started bowel prep at noon today - Cardiology and UG already consulted - Plavix stopped and Lovenox initiated - plan for OR on Monday (2) Pneumaturia Current Visit: Yes Status: Acute Secondary to cholovestical fistula. CT of the abdomen and pelvis shows abnormal gas seen within the bladder. Lea currently present. Will plan for surgical repair on Monday. (3) CAD (coronary artery disease) Current Visit: Yes Status: Acute Patient heart catheter with cardiac stent placed 6 weeks ago. Patient is on Plavix and aspirin for therapy. Per Cardiology's recommendations, plavix stopped 08/09 and Lovenox added. patient must be off Plavix 5 days prior to surgery. Qualifiers: Coronary Disease-Associated Artery/Lesion type: unspecified vessel or lesion type [place] vs. transplanted heart: unspecified whether [place] or transplanted heart Associated angina: angina presence unspecified Qualified Code(s): I25.10 - Atherosclerotic heart disease of [place] coronary artery without angina pectoris (4) HTN (hypertension) Current Visit: Yes Status: Acute We will continue home medications of metoprolol 12.5 mg by mouth twice a day and lisinopril 5 mg by mouth daily. BP well controlled. Qualifiers: Hypertension type: unspecified Qualified Code(s): I10 - Essential (primary ) hypertension (5) Hypercholesteremia Current Visit: Yes Status: Acute We will continue home medication of Lipitor 80 mg by mouth daily. (6) Tobacco abuse Current Visit: Yes Status: Acute Patient given nicotine patch 14 mg daily. (7) Diverticulosis Current Visit: Yes Status: Acute CT of the abdomen and pelvis from the [place] shows extensive diverticulosis of the sigmoid colon and to a lesser degree the remainder of the colon. Most likely cause of the colovesticular fistula. Qualifiers: Diverticulosis site: diverticulosis of large intestine Qualified Code(s): K57.30 - Diverticulosis of large intestine without perforation or abscess without bleeding Subjective Narrative: Mr. Alamo is a 66 year old male with a past medical history of cardiac stent 6 weeks ago, hypertension, hyperlipidemia came in with a chief complaint of abdominal pain 2 weeks. Patient was a [place] transfer to [place] [facility] for a CT finding of a vesticulo-sigmoid fistula admitted to the surgical service. Today patient says he does not have abdominal pain. He has not had a BM. Tolerating clears well without N/V. Denies SOB, or chest pain. Objective Vital Signs - Last 8 Hours Temp Pulse Resp BP Pulse Ox 08/10/17 10:11 97.6 F 56 16 100/55 96 08/10/17 08:30 63 08/10/17 06:44 97.4 F L 59 15 107/66 96 Intake and Output 08/09/17 08/10/17 08/10/17 23:59 07:59 15:59 Intake Total 840 / 840 460 / 460 960 / 960 Output Total 550 / 550 100 / 100 500 / 500 Balance 290 / 290 360 / 360 460 / 460 Intake: IV Fluids 300 / 300 100 / 100 Cipro Premix 400 MG/200 ML 400 200 / 200 mg In 200 ml @ 200 mls/hr IVPB Q12HR [facility] Rx#:[id number] Flagyl Premix 500 MG/100 ML 500 100 / 100 100 / 100 mg In 100 ml @ 100 mls/hr IVPB Q8HR [facility] Rx#:[id number] Oral 540 / 540 360 / 360 960 / 960 Output: Catheter 550 / 550 100 / 100 500 / 500 Other: Weight 79.968 kg Patient Weight 08/10/17 23:59 Weight 79.968 kg - Additional Exam Constitutional: Alert, in no acute distress, well nourished, well developed. Head: Normocephalic, atraumatic, normal contour and symmetric, no masses, lesions or scars Heart: Normal, regular rate and rhythm, no murmurs Lungs: + scattered wheezing, no , rales, or rhonchi Abdomen: Soft, nondistended, nontender and no masses palpable, bowel sounds present and normal, no guarding or rigidity. Extremities: No clubbing, cyanosis, or edema, radial pulse +2/4, capillary refill <2sec. Skin: Skin warm and dry, no lesions, no rashes, no jaundice : lea present at urethral meatus urine yellow, orange, scrotum without edema , Neurologic: Cranial nerves II through XII grossly intact, no focal deficits, strength within normal limits in all extremities Psych: Cooperative with exam, good eye contact, cognitive function intact, judgment good insight good, speech clear, thought process logical, and goal directed - Labs 08/10/17 05:22 08/10/17 05:22 Diabetes panel 08/10/17 Range/Units 05:22 Sodium 135 L (136-145) mEq/L Potassium 3.4 L (3.5-4.5) mEq/L Chloride 104 (98-109) mEq/L Carbon Dioxide 23 (19-29) mEq/L BUN 12 (8-26) mg/dL Creatinine 1.09 (0.72-1.25) mg/dL Glucose 105 H (70-99) mg/dL Calcium 8.7 (8.6-10.8) mg/dL Calcium panel 08/10/17 Range/Units 05:22 Calcium 8.7 (8.6-10.8) mg/dL Phosphorus 3.1 (2.3-4.7) mg/dL Pituitary panel 08/10/17 Range/Units 05:22 Sodium 135 L (136-145) mEq/L Potassium 3.4 L (3.5-4.5) mEq/L Chloride 104 (98-109) mEq/L Carbon Dioxide 23 (19-29) mEq/L BUN 12 (8-26) mg/dL Creatinine 1.09 (0.72-1.25) mg/dL Glucose 105 H (70-99) mg/dL Calcium 8.7 (8.6-10.8) mg/dL Adrenal panel 08/10/17 Range/Units 05:22 Sodium 135 L (136-145) mEq/L Potassium 3.4 L (3.5-4.5) mEq/L Chloride 104 (98-109) mEq/L Carbon Dioxide 23 (19-29) mEq/L BUN 12 (8-26) mg/dL Creatinine 1.09 (0.72-1.25) mg/dL Glucose 105 H (70-99) mg/dL Calcium 8.7 (8.6-10.8) mg/dL - VTE Documentation of Mechanical Device: Intermittent pneumatic compression device Consult Discharge Plan - Plan Referrals: [facility] [Outside] <Jude Sinha - Last Filed: 08/10/17 21:42> Date of Encounter: 08/10/17 Objective Vital Signs - Last 8 Hours Temp Pulse Resp BP Pulse Ox 08/10/17 20:55 99.3 F 71 14 146/74 96 08/10/17 14:54 100.7 F H 75 15 115/63 97 Intake and Output 08/10/17 08/10/17 08/10/17 07:59 15:59 23:59 Intake Total 660 / 660 1420 / 1420 480 / 480 Output Total 100 / 100 700 / 700 550 / 550 Balance 560 / 560 720 / 720 -70 / -70 Intake: IV Fluids 300 / 300 100 / 100 Cipro Premix 400 MG/200 ML 400 200 / 200 mg In 200 ml @ 200 mls/hr IVPB Q12HR [facility] Rx#:[id number] Flagyl Premix 500 MG/100 ML 500 100 / 100 100 / 100 mg In 100 ml @ 100 mls/hr IVPB Q8HR [facility] Rx#:[id number] Oral 360 / 360 1320 / 1320 480 / 480 Output: Catheter 100 / 100 700 / 700 550 / 550 Other: Meal Lunch Dinner Percent of Meal Consumed 0% Weight 79.968 kg Patient Weight 08/10/17 23:59 Weight 79.968 kg - Labs 08/10/17 05:22 08/10/17 05:22 Diabetes panel 08/10/17 Range/Units 05:22 Sodium 135 L (136-145) mEq/L Potassium 3.4 L (3.5-4.5) mEq/L Chloride 104 (98-109) mEq/L Carbon Dioxide 23 (19-29) mEq/L BUN 12 (8-26) mg/dL Creatinine 1.09 (0.72-1.25) mg/dL Glucose 105 H (70-99) mg/dL Calcium 8.7 (8.6-10.8) mg/dL Calcium panel 08/10/17 Range/Units 05:22 Calcium 8.7 (8.6-10.8) mg/dL Phosphorus 3.1 (2.3-4.7) mg/dL Pituitary panel 08/10/17 Range/Units 05:22 Sodium 135 L (136-145) mEq/L Potassium 3.4 L (3.5-4.5) mEq/L Chloride 104 (98-109) mEq/L Carbon Dioxide 23 (19-29) mEq/L BUN 12 (8-26) mg/dL Creatinine 1.09 (0.72-1.25) mg/dL Glucose 105 H (70-99) mg/dL Calcium 8.7 (8.6-10.8) mg/dL Adrenal panel 08/10/17 Range/Units 05:22 Sodium 135 L (136-145) mEq/L Potassium 3.4 L (3.5-4.5) mEq/L Chloride 104 (98-109) mEq/L Carbon Dioxide 23 (19-29) mEq/L BUN 12 (8-26) mg/dL Creatinine 1.09 (0.72-1.25) mg/dL Glucose 105 H (70-99) mg/dL Calcium 8.7 (8.6-10.8) mg/dL - Attending Attestation Patient seen and examined; Reviewed progress notes, labs and current plan; patient with concern for colovesicular fistula; currently non septic and completing bowel prep in preparation for colonosocpy in AM; Will require surgery for resolution;
[2017-08-10] MEDS ORDERED: Polyethylene Glycol 3350 255 GM POWDER PO ONE (15:00)
[2017-08-11] MEDS: MetroNIDAZOLE 500 MG/100 ML 500 MG/100 ML BAG IVPB SCH ×4 (00:20→23:47)
[2017-08-11] MEDS: *HR* Enoxaparin 80 MG/0.8 ML SYRINGE SQ SCH (05:32)
[2017-08-11 05:49] LABS: Basophils % 0.2 %; Eosinophils # 0.1 K/mcL (0.0-0.6); Eosinophils % 0.6 %; Hematocrit 35.8 % (37.5-50.1); Hemoglobin 11.9 g/dL (12.9-16.9); Immature Granulocytes % 0.6 % (0-4); Lymphocytes # 1.4 K/mcL (0.6-4.6); Mean Corpuscular HGB Conc 33.2 g/dL (31.6-35.5); Mean Corpuscular Hemoglobin 27.9 pg (28.0-33.3); Mean Corpuscular Volume 83.8 fL (83.0-100.0); Mean Platelet Volume 10.1 fL (9.4-12.4); Monocytes # 1.4 K/mcL (0.0-1.3); Monocytes % 13.7 %; Platelet Count 229 K/mcL (140-400); Red Blood Count 4.27 M/mcL (4.19-5.50); Segmented Neutrophils % 70.9 %
[2017-08-11 06:05] LABS: BUN/Creatinine Ratio 8 (6-26); Blood Urea Nitrogen 7 mg/dL (8-26); Calcium 8.8 mg/dL (8.6-10.8); Carbon Dioxide 23 mEq/L (19-29); Chloride 102 mEq/L (98-109); Glucose 105 mg/dL (70-99); Osmolality,Calculated 274 (280-300); Potassium 3.3 mEq/L (3.5-4.5); Sodium 133 mEq/L (136-145); eGFR For African Americans > 60 (> 60); eGFR For Non-African Americans > 60 (> 60)
[2017-08-11] MEDS: Albuterol 2.5 MG/3 ML NEBULIZER IH SCH ×3 (07:51→21:37)
[2017-08-11] MEDS ORDERED: Potassium Phosphate 44 MEQ in 0.9 % Sodium Chloride 250 ML IVPB ONE (08:46)
--- NOTE | 2017-08-11 08:52 | General Surgery Progress Note ---
<Alexandria Barillas - Last Filed: 08/11/17 08:50> Date of Encounter: 08/11/17 Time of Encounter: 06:50 - Assessment and Plan (1) Colovesical fistula Current Visit: Yes Status: Acute Patient has a chief complaint of suprapubic abdominal pain for [address] scan at [place] showed colovestical fistula, most likely due to diverticulosis. Patient has been febrile and was started on Cipro and Flagyl. Urology was consulted and believes patient does not require a CT urogram and CT cystogram as images clearly show the site of fistula between the sigmoid colon and the dome of the bladder. Patient will require surgery to resolve the fistula. Cardiology was consulted due to patient having recent cardiac catheter with stent placement 6 weeks ago and is on Plavix and aspirin. Cardiology recommended stopping Plavix and starting Lovenox for 5 days until surgery. Patient given bowel prep and still not clear. Will do colonoscopy this afternoon. Plan: - Colonoscopy this afternoon. - Cardiology and UG already consulted - Plavix stopped and Lovenox initiated - plan for OR on Monday (2) Pneumaturia Current Visit: Yes Status: Acute Secondary to cholovestical fistula. CT of the abdomen and pelvis shows abnormal gas seen within the bladder. Lea currently present. Will plan for surgical repair on Monday. (3) CAD (coronary artery disease) Current Visit: Yes Status: Acute Patient heart catheter with cardiac stent placed 6 weeks ago. Patient is on Plavix and aspirin for therapy. Per Cardiology's recommendations, plavix stopped 08/09 and Lovenox added. patient must be off Plavix 5 days prior to surgery. Qualifiers: Coronary Disease-Associated Artery/Lesion type: [place] artery [place] vs. transplanted heart: [place] heart Associated angina: with stable angina Qualified Code(s): I25.118 - Atherosclerotic heart disease of [place] coronary artery with other forms of angina pectoris (4) HTN (hypertension) Current Visit: Yes Status: Acute We will continue home medications of metoprolol 12.5 mg by mouth twice a day and lisinopril 5 mg by mouth daily. BP well controlled. Qualifiers: Hypertension type: unspecified Qualified Code(s): I10 - Essential (primary ) hypertension (5) Hypercholesteremia Current Visit: Yes Status: Acute We will continue home medication of Lipitor 80 mg by mouth daily. (6) Tobacco abuse Current Visit: Yes Status: Acute Patient given nicotine patch 14 mg daily. (7) Diverticulosis Current Visit: Yes Status: Acute CT of the abdomen and pelvis from the [place] shows extensive diverticulosis of the sigmoid colon and to a lesser degree the remainder of the colon. Most likely cause of the colovesticular fistula. Qualifiers: Diverticulosis site: diverticulosis of large intestine Qualified Code(s): K57.30 - Diverticulosis of large intestine without perforation or abscess without bleeding (8) Hypokalemia Current Visit: Yes Status: Acute (9) Hypokalemia, gastrointestinal losses Current Visit: Yes Status: Acute K= 3.3 (3.4). Patient given 44meq of potassium phosphate IV today and 40meq potassium orally. Will continue to monitor. Subjective Narrative: Mr. Alamo is a 66 year old male with a past medical history of cardiac stent 6 weeks ago, hypertension, hyperlipidemia came in with a chief complaint of abdominal pain 2 weeks. Patient was a [place] transfer to [place] ED for a CT finding of a vesticulo-sigmoid fistula admitted to the surgical service. Today patient says his bowel movement are not clear yet. He has tolerated the bowel prep well. Denies N/V, SOB. Objective Vital Signs - Last 8 Hours Temp Pulse Resp BP Pulse Ox 08/11/17 07:04 98.3 F 62 15 118/74 98 08/11/17 04:10 99.3 F 69 14 108/57 94 Intake and Output 08/10/17 08/11/17 08/11/17 23:59 07:59 15:59 Intake Total 780 / 780 120 / 120 Output Total 550 / 550 1700 / 1700 Balance 230 / 230 -1580 / -1580 Intake: IV Fluids 300 / 300 Cipro Premix 400 MG/200 ML 400 200 / 200 mg In 200 ml @ 200 mls/hr IVPB Q12HR [facility] Rx#:[id number] Flagyl Premix 500 MG/100 ML 500 100 / 100 mg In 100 ml @ 100 mls/hr IVPB Q8HR [facility] Rx#:[id number] Oral 480 / 480 120 / 120 Output: Urine 0 / 0 Catheter 550 / 550 1700 / 1700 Other: Meal Dinner Percent of Meal Consumed 0% Weight 79.651 kg Blood Glucose* 108 Patient Weight 08/11/17 23:59 Weight 79.651 kg - Additional Exam Constitutional: Alert, in no acute distress, well nourished, well developed. Head: Normocephalic, atraumatic, normal contour and symmetric, no masses, lesions or scars Heart: Normal, regular rate and rhythm, no murmurs Lungs: + scattered wheezing, no , rales, or rhonchi Abdomen: mild distention and suprapubic tenderness, Soft, nondistended, and no masses palpable, bowel sounds present and normal, no guarding or rigidity. Extremities: No clubbing, cyanosis, or edema, radial pulse +2/4, capillary refill <2sec. Skin: Skin warm and dry, no lesions, no rashes, no jaundice : lea present at urethral meatus urine yellow, orange, scrotum without edema , Neurologic: Cranial nerves II through XII grossly intact, no focal deficits, strength within normal limits in all extremities Psych: Cooperative with exam, good eye contact, cognitive function intact, judgment good insight good, speech clear, thought process logical, and goal directed - Labs 08/11/17 05:11 08/11/17 05:11 Diabetes panel 08/11/17 Range/Units 05:11 Sodium 133 L (136-145) mEq/L Potassium 3.3 L (3.5-4.5) mEq/L Chloride 102 (98-109) mEq/L Carbon Dioxide 23 (19-29) mEq/L BUN 7 L (8-26) mg/dL Creatinine 0.89 (0.72-1.25) mg/dL Glucose 105 H (70-99) mg/dL Calcium 8.8 (8.6-10.8) mg/dL Calcium panel 08/11/17 Range/Units 05:11 Calcium 8.8 (8.6-10.8) mg/dL Pituitary panel 08/11/17 Range/Units 05:11 Sodium 133 L (136-145) mEq/L Potassium 3.3 L (3.5-4.5) mEq/L Chloride 102 (98-109) mEq/L Carbon Dioxide 23 (19-29) mEq/L BUN 7 L (8-26) mg/dL Creatinine 0.89 (0.72-1.25) mg/dL Glucose 105 H (70-99) mg/dL Calcium 8.8 (8.6-10.8) mg/dL Adrenal panel 08/11/17 Range/Units 05:11 Sodium 133 L (136-145) mEq/L Potassium 3.3 L (3.5-4.5) mEq/L Chloride 102 (98-109) mEq/L Carbon Dioxide 23 (19-29) mEq/L BUN 7 L (8-26) mg/dL Creatinine 0.89 (0.72-1.25) mg/dL Glucose 105 H (70-99) mg/dL Calcium 8.8 (8.6-10.8) mg/dL - VTE Documentation of Mechanical Device: Intermittent pneumatic compression device Consult Discharge Plan - Plan Referrals: [facility] [Outside] <Brice Thao - Last Filed: 08/11/17 15:29> Date of Encounter: 08/11/17 Objective Vital Signs - Last 8 Hours Temp Pulse Resp BP Pulse Ox 08/11/17 10:11 97.8 F 71 15 105/65 95 Intake and Output 08/10/17 08/11/17 08/11/17 23:59 07:59 15:59 Intake Total 780 / 780 120 / 120 100 / 100 Output Total 550 / 550 1700 / 1700 500 / 500 Balance 230 / 230 -1580 / -1580 -400 / -400 Intake: IV Fluids 300 / 300 100 / 100 Cipro Premix 400 MG/200 ML 400 200 / 200 mg In 200 ml @ 200 mls/hr IVPB Q12HR [facility] Rx#:[id number] Flagyl Premix 500 MG/100 ML 500 100 / 100 100 / 100 mg In 100 ml @ 100 mls/hr IVPB Q8HR [facility] Rx#:[id number] Oral 480 / 480 120 / 120 0 / 0 Output: Urine 0 / 0 Catheter 550 / 550 1700 / 1700 500 / 500 Other: Meal Dinner npo Percent of Meal Consumed 0% 0% # Bowel Movements 1 Weight 79.651 kg Blood Glucose* 108 104 Patient Weight 08/11/17 23:59 Weight 79.651 kg - Labs 08/11/17 05:11 08/11/17 05:11 Diabetes panel 08/11/17 Range/Units 05:11 Sodium 133 L (136-145) mEq/L Potassium 3.3 L (3.5-4.5) mEq/L Chloride 102 (98-109) mEq/L Carbon Dioxide 23 (19-29) mEq/L BUN 7 L (8-26) mg/dL Creatinine 0.89 (0.72-1.25) mg/dL Glucose 105 H (70-99) mg/dL Calcium 8.8 (8.6-10.8) mg/dL Calcium panel 08/11/17 Range/Units 05:11 Calcium 8.8 (8.6-10.8) mg/dL Pituitary panel 08/11/17 Range/Units 05:11 Sodium 133 L (136-145) mEq/L Potassium 3.3 L (3.5-4.5) mEq/L Chloride 102 (98-109) mEq/L Carbon Dioxide 23 (19-29) mEq/L BUN 7 L (8-26) mg/dL Creatinine 0.89 (0.72-1.25) mg/dL Glucose 105 H (70-99) mg/dL Calcium 8.8 (8.6-10.8) mg/dL Adrenal panel 08/11/17 Range/Units 05:11 Sodium 133 L (136-145) mEq/L Potassium 3.3 L (3.5-4.5) mEq/L Chloride 102 (98-109) mEq/L Carbon Dioxide 23 (19-29) mEq/L BUN 7 L (8-26) mg/dL Creatinine 0.89 (0.72-1.25) mg/dL Glucose 105 H (70-99) mg/dL Calcium 8.8 (8.6-10.8) mg/dL - Attending Attestation I examined this patient and my medical decision-making was reviewed with the Resident Physician. I agree with the documented findings, disposition and treatment plan as described except to the extent set forth below. The patient was seen and evaluated on morning rounds with the rest. We will proceed colonoscopy later today to rule out malignancy as the cause of the colovesical fistula. This is likely diverticulosis if the colonoscopy is negative we will proceed with bowel prep and resection on Monday after the patient has been off Plavix for 5 days. Brice Thao MD FACS
[2017-08-11] MEDS: *HR* HYDROmorphone (PF) 1 MG/ML SYRINGE IVP PRN (09:08)
[2017-08-11] MEDS: Aspirin 81 MG TAB.CHEW PO SCH (09:09)
[2017-08-11] MEDS: Nicotine 14 MG PATCH.TD24 TD SCH ×2 (09:10→18:55)
--- NOTE | 2017-08-11 10:28 | Cardiology Progress Note ---
<Stephen Romero - Last Filed: 08/11/17 11:36> Date of Encounter: 08/11/17 Time of Encounter: 10:25 Assessment and Plan (1) CAD (coronary artery disease) Current Visit: Yes Status: Acute Patient has a history of [place] and stent placement 6 weeks ago. Patient had his stent placed at [facility] in [place]. Patient denies any chest pain, worsening of his shortness of breath beyond baseline, palpitations or any other cardiac complaints. Currently on plavix and aspirin. Cardiology was consulted for recommendation on stopping plavix prior to surgery since the patient had a recent catheterization with stent placement. Further medical records have been obtained from [facility] in [place] where the patient states he had his stent placed. Per the report there was a CATRACHO stent placed in the proximal LAD. If the surgery is not emergent the plavix can be stopped and then lovenox started for 5 days prior to surgery. Recommend resume plavix as soon as surgically possible post op with 300mg loading dose x 1, then resume 75 mg q d. We will signoff on the case at this time. Patient states that he does not want to schedule a follow up appointment at this. [facility] any sort of follow up. Qualifiers: Coronary Disease-Associated Artery/Lesion type: [place] artery [place] vs. transplanted heart: [place] heart Associated angina: with stable angina Qualified Code(s): I25.118 - Atherosclerotic heart disease of [place] coronary artery with other forms of angina pectoris (2) HTN (hypertension) Current Visit: Yes Status: Acute The patient has a history of HTN and takes lisinopril and metoprolol. The patients most recent BP was 118/74. His blood pressure appears to be well controlled at this time. Continue with current medical management. Qualifiers: Hypertension type: unspecified Qualified Code(s): I10 - Essential (primary ) hypertension (3) Hyperlipidemia Current Visit: Yes Status: Acute Patient has a history of high cholesterol and is currently taking atorvastatin. Continue with current medical management. Qualifiers: Hyperlipidemia type: unspecified Qualified Code(s): E78.5 - Hyperlipidemia , unspecified (4) Colovesical fistula Current Visit: Yes Status: Acute Patient was diagnosed with a Colovesical fistula. My understanding per surgery note is that they are planning for a colonoscopy this afternoon and surgery on Jose[place]. This is being followed by surgery and urology. (5) Pneumaturia Current Visit: Yes Status: Acute Patient had bubbles in his urine and is likely from the colovesicular fistula. Back catheter in place. Urology has been consulted on this patient. (6) Tobacco abuse Current Visit: Yes Status: Acute Patient has a long standing history of tobacco use. States that he had smoked 2 ppd for 40 years until his recent [place] and stent placement. Since his [place] he has been smoking 3-4 cigarettes per day. He has a perscription for nicoderm patches but states he has not started using them yet. A Nicoderm patch is ordered for while the patient is in the hospital. Discussion w patient/family: The assessment and plan as outlined above was discussed with the patient and/or family members who expressed understanding and agreement. All questions were answered. Thank you for involving us in the care of your patient. Please call with any questions. Subjective Principal diagnosis: Colovesical Fistula Interval history: Patient states that he did well overnight. He states that he is feeling well at this time. Patient denies having any abdominal pain while laying in bed. Patient denies having any chest pain, worsening of his shortness of breath, or palpitations. Patient does states that he has been doing the colonoscopy prep and having a lot of loose stools. He also stated he has a cough that is worse in the mornings but has been better since he decreased the amount he smokes. Otherwise the patient states that he is feeling well and has no complaints related to his heart. He states that he will be having his colonoscopy this afternoon. Objective Vital Signs, Last 4 Hours Temp Pulse Resp BP Pulse Ox 08/11/17 10:11 97.8 F 71 15 105/65 95 08/11/17 07:04 98.3 F 62 15 118/74 98 General: Conversant, No Apparent Distress HEENT: Atraumatic, Normocephaly Neck: No JVD, Normal carotid pulses Cardiac: Reg Rate and Rhythm, Normal S1 and S2, No Murmur Lungs: Normal Breath Sounds, Other (Bilateral wheezes) Neuro: Alert and responsive, No focal deficits noted Abdomen: Soft, Other (mild tenderness in the suprapubic region) Skin: No rashes noted on visualized skin Extremities: No Clubbing, No Cyanosis, No Edema, Normal Pulses Results 08/11/17 05:11 08/11/17 05:11 Lab Results 08/11/17 08/11/17 05:11 05:11 WBC 9.9 D Hgb 11.9 L Hct 35.8 L Plt Count 229 Sodium 133 L Potassium 3.3 L Chloride 102 Carbon Dioxide 23 BUN 7 L Creatinine 0.89 Glucose 105 H Calcium 8.8 - VTE Documentation of Mechanical Device: Intermittent pneumatic compression device Consult Discharge Plan - Plan Referrals: [facility] [Outside] <Hussein Bird - Last Filed: 08/12/17 15:39> Date of Encounter: 08/11/17 Time of Encounter: 18:45 Assessment and Plan (1) CAD (coronary artery disease) Current Visit: Yes Status: Acute Stable class 1 angina post emergent PCi with CATRACHO [facility] LAD [facility] , on week six of dual antiplatelet tx, on hold for planned surgical intervention , on Lovenox bridge, no anginal symptoms. Continue systemic anticoagulation with lovenox preoperatively, resume Plavix with 300 mg po loading dose then 75 mg q d when able to oral medications post op. Qualifiers: Coronary Disease-Associated Artery/Lesion type: [place] artery [place] vs. transplanted heart: [place] heart Associated angina: with stable angina Qualified Code(s): I25.118 - Atherosclerotic heart disease of [place] coronary artery with other forms of angina pectoris Discussion w patient/family: The assessment and plan as outlined above was discussed with the patient and/or family members who expressed understanding and agreement. All questions were answered. Thank you for involving us in the care of your patient. Please call with any questions. Subjective Interval history: PT compliains of mild abdominal bloating and cramping following colonoscopy, He reports symptoms are improving. He has been ambulatory to and from restroom without associated chest pain, pressure or shortness of breath. Objective Vital Signs, Last 4 Hours Temp Pulse Resp BP Pulse Ox 08/12/17 15:26 98.7 F 55 18 131/80 98 Abdomen: Other (mildy distended, no rebound. ) Results 08/12/17 04:07 08/12/17 04:07 Lab Results 08/12/17 08/12/17 04:07 04:07 WBC 8.8 Hgb 11.3 L Hct 33.9 L Plt Count 223 Sodium 138 Potassium 3.6 Chloride 105 Carbon Dioxide 25 BUN 9 Creatinine 0.89 Glucose 126 H Calcium 8.7
--- NOTE | 2017-08-11 16:19 | Anesthesia Evaluation PreOp ---
Date of Encounter: 08/11/17 Time of Encounter: 16:18 - Past History Planned Operation: Colonoscopy Cardiac History: PA, HTN, Hyperlipidemia, Cardiac Stent (CATRACHO x1 (LAD) 6 weeks ago) Pulmonary History: Smoker, Pack/yr (1/2 ppd) COMPENSATION DIRECTOR History: Denies Any Significant HX Other Medical History: Other (Colovesical fistula) Anesthesia History: Past Anesthesia (Circ., Tonsillectomy) Alcohol Use: occasionally Drug use: none Medications and Allergies Albuterol Sulfate [Albuterol Inhaler] 2 puff IH QID PRN 08/08/17 [History] Aspirin Enteric Coated [Aspirin EC] 81 mg PO DAILY 08/08/17 [History] Atorvastatin Calcium [Lipitor] 80 mg PO HS 08/08/17 [History] Clopidogrel [Plavix] 75 mg PO DAILY 08/08/17 [History] Lisinopril [Zestril] 5 mg PO DAILY 08/08/17 [History] Methocarbamol [Robaxin] 500 mg PO Q6H PRN 08/08/17 [History] Metoprolol [Lopressor] 12.5 mg PO BID 08/08/17 [History] Nicotine Patch [Nicoderm] 14 mg TD DAILY 08/08/17 [History] Sildenafil Citrate [Viagra] 100 mg PO AD PRN 08/08/17 [History] 3 Allergy/AdvReac Type Severity Reaction Status Date / Time azithromycin Allergy See Verified 08/08/17 17:35 Comments Penicillins Allergy See Verified 08/08/17 17:35 Comments - Meds/Allergy Pre-op Review Medications Reviewed: Yes Allergies Reviewed: Yes Beta Blockers on Current Med List: Yes If Beta Blockers taken, Date/Time (Last Dose taken): 09:07 08/11/2017 Anesthesia Results - Labs 08/11/17 05:11 08/11/17 05:11 Anesthesia Exam O2 Sat Weight 79.651 kg O2 Sat by Pulse Oximetry 97 O2 Sat by Pulse Oximetry 95 O2 Sat by Pulse Oximetry 98 O2 Sat by Pulse Oximetry 94 O2 Sat by Pulse Oximetry 96 O2 Sat by Pulse Oximetry 96 Vital Signs Temp Pulse Resp BP Pulse Ox 98.5 F 80 16 102/63 95 08/08/17 17:28 08/08/17 17:28 08/08/17 17:28 08/08/17 17:28 08/08/17 17:28 Vital Signs/O2 Sat, Most Current Temp Pulse Resp BP Pulse Ox 98.0 F 60 15 117/56 97 08/11/17 15:59 08/11/17 15:59 08/11/17 15:59 08/11/17 15:59 08/11/17 15:59 Height: 5'9'' Weight: 175# NPO (# of Hours): > 8 hrs Pain Scale: 0 Pain Scale Used: Numeric (1 - 10) - HEENT Pupil (Motor): Pupils equal, EOMI Mallampati: II Teeth: Edentulous Denture Type: Upper: Complete, Lower: Complete Oral Opening: Greater than 3 - COMPENSATION DIRECTOR LOC: Oriented COMPENSATION DIRECTOR Motor: Normal RUE, Normal LUE, Normal RLE, Normal LLE, Normal Face COMPENSATION DIRECTOR Sensory: Normal: RUE, LUE, RLE, LLE, Face - Cardiac Rhythm: Regular Murmur: None JVD: No Carotid Bruit: No - Pulmonary Breath Sounds: bilateral Clear Respiratory Effort: Symmetrical Anesthesia Assess/Plan ASA Score: 4 Modified Mraia D Scale for Level of Consciousness: Cooperative, oriented, and tranquil Anesthetic Plan: General Autologous Blood: Yes Monitoring Plan: Standard Monitors Recovery Plan: PACU
[2017-08-11] MEDS ORDERED: Propofol 500 MG/50 ML INFUS..BTL ONE (17:06)
[2017-08-11] MEDS ORDERED: Lidocaine -MPF 2% 2 ML VIAL ONE (17:06)
[2017-08-11] MEDS ORDERED: *HR* Propofol 200 MG/20 ML VIAL IVP ONE (17:06)
[2017-08-11] MEDS ORDERED: EPHEDrine 50 MG/ML VIAL ONE (17:50)
[2017-08-11] MEDS ORDERED: Ondansetron 4 MG/2 ML VIAL IVP PRN (18:09)
[2017-08-11] MEDS ORDERED: *HR* OxyCODONE/APAP 10/325 TABLET PO PRN (18:09)
[2017-08-12] MEDS: *HR* HYDROmorphone (PF) 1 MG/ML SYRINGE IVP PRN ×2 (00:02→18:52)
[2017-08-12] MEDS: *HR* Enoxaparin 80 MG/0.8 ML SYRINGE SQ SCH ×3 (00:50→17:47)
[2017-08-12 04:50] LABS: Basophils % 0.2 %; Eosinophils % 2.3 %; Hematocrit 33.9 % (37.5-50.1); Hemoglobin 11.3 g/dL (12.9-16.9); Immature Granulocytes % 0.6 % (0-4); Lymphocytes % 16.1 %; Mean Corpuscular HGB Conc 33.3 g/dL (31.6-35.5); Mean Corpuscular Hemoglobin 28.5 pg (28.0-33.3); Mean Corpuscular Volume 85.6 fL (83.0-100.0); Mean Platelet Volume 10.5 fL (9.4-12.4); Monocytes % 11.7 %; Platelet Count 223 K/mcL (140-400); Red Blood Count 3.96 M/mcL (4.19-5.50); Red Cell Distribution Width 12.2 % (11.5-14.5); Segmented Neutrophils % 69.1 %
[2017-08-12 04:51] LABS: Eosinophils # 0.2 K/mcL (0.0-0.6); Lymphocytes # 1.4 K/mcL (0.6-4.6); Neutrophils # 6.1 K/mcL (1.6-8.9)
[2017-08-12 05:07] LABS: BUN/Creatinine Ratio 10 (6-26); Blood Urea Nitrogen 9 mg/dL (8-26); Calcium 8.7 mg/dL (8.6-10.8); Carbon Dioxide 25 mEq/L (19-29); Chloride 105 mEq/L (98-109); Glucose 126 mg/dL (70-99); Osmolality,Calculated 286 (280-300); Sodium 138 mEq/L (136-145); eGFR For African Americans > 60 (> 60); eGFR For Non-African Americans > 60 (> 60)
[2017-08-12 05:08] LABS: Potassium 3.6 mEq/L (3.5-4.5)
[2017-08-12] MEDS: MetroNIDAZOLE 500 MG/100 ML 500 MG/100 ML BAG IVPB SCH ×3 (08:41→23:06)
[2017-08-12] MEDS: Nicotine 14 MG PATCH.TD24 TD SCH (08:44)
[2017-08-12] MEDS: Aspirin 81 MG TAB.CHEW PO SCH (08:44)
--- NOTE | 2017-08-12 13:26 | General Surgery Progress Note ---
<Alexandria Barillas - Last Filed: 08/12/17 13:23> Date of Encounter: 08/12/17 Time of Encounter: 10:24 - Assessment and Plan (1) Colovesical fistula Current Visit: Yes Status: Acute Patient has a chief complaint of suprapubic abdominal pain for [address] scan [place] showed colovestical fistula, most likely due to diverticulosis. Patient has been febrile and was started on Cipro and Flagyl. Urology was consulted and believes patient does not require a CT urogram and CT cystogram as images clearly show the site of fistula between the sigmoid colon and the dome of the bladder. Patient will require surgery to resolve the fistula. Cardiology was consulted due to patient having recent cardiac catheter with stent placement 6 weeks ago and is on Plavix and aspirin. Cardiology recommended stopping Plavix and starting Lovenox for 5 days until surgery. Patient given bowel prep and still not clear. Colonoscopy showed: multiple small and large-mouthed diverticula in the sigmoid colon. Severe angulation at the rectosigmoid at the suspected area of fistula. Planned leave of absence granted on Monday around 1:30pm as his brother . Plan: - Colonoscopy this afternoon. - Cardiology and UG already consulted - Plavix stopped and Lovenox initiated - continue clear liquid diet - Arrange planned leaved of absence. - plan for OR on Monday (2) Pneumaturia Current Visit: Yes Status: Acute Secondary to cholovestical fistula. CT of the abdomen and pelvis shows abnormal gas seen within the bladder. Lea currently present. Will plan for surgical repair on Monday. (3) CAD (coronary artery disease) Current Visit: Yes Status: Acute Patient heart catheter with cardiac stent placed 6 weeks ago. Patient is on Plavix and aspirin for therapy. Per Cardiology's recommendations, plavix stopped 08/09 and Lovenox added. patient must be off Plavix 5 days prior to surgery. Qualifiers: Coronary Disease-Associated Artery/Lesion type: [place] artery [place] vs. transplanted heart: [place] heart Associated angina: with stable angina Qualified Code(s): I25.118 - Atherosclerotic heart disease of [place] coronary artery with other forms of angina pectoris (4) HTN (hypertension) Current Visit: Yes Status: Acute We will continue home medications of metoprolol 12.5 mg by mouth twice a day and lisinopril 5 mg by mouth daily. BP well controlled. Qualifiers: Hypertension type: unspecified Qualified Code(s): I10 - Essential (primary ) hypertension (5) Hypercholesteremia Current Visit: Yes Status: Acute We will continue home medication of Lipitor 80 mg by mouth daily. (6) Tobacco abuse Current Visit: Yes Status: Acute Patient given nicotine patch 14 mg daily. (7) Diverticulosis Current Visit: Yes Status: Acute CT of the abdomen and pelvis from the [place] shows extensive diverticulosis of the sigmoid colon and to a lesser degree the remainder of the colon. Most likely cause of the colovesticular fistula. Confirmed diverticulosis of the sigmoid colon on colonoscopy. Qualifiers: Diverticulosis site: diverticulosis of large intestine Qualified Code(s): K57.30 - Diverticulosis of large intestine without perforation or abscess without bleeding (8) Hypokalemia Current Visit: Yes Status: Acute (9) Hypokalemia, gastrointestinal losses Current Visit: Yes Status: Acute K= 3.3 (3.4). Patient given 44meq of potassium phosphate IV today and 40meq potassium orally. Will continue to monitor. Resolved today as K= 3.6. Subjective Narrative: Mr. Alamo is a 66 year old male with a past medical history of cardiac stent 6 weeks ago, hypertension, hyperlipidemia came in with a chief complaint of abdominal pain 2 weeks. Patient was a [place] transfer to [place] ED for a CT finding of a vesticulo-sigmoid fistula admitted to the surgical service. Today patient says he is feeling better than yesterday. He is tolerated clear liquids well. His brother yesterday and patient desires to go visiting hours tomorrow afternoon. Denies N/V, SOB. Objective Vital Signs - Last 8 Hours Temp Pulse Resp BP Pulse Ox 08/12/17 10:41 98.3 F 52 14 112/65 97 08/12/17 07:00 98.2 F 62 17 114/64 96 Intake and Output 08/11/17 08/12/17 08/12/17 23:59 07:59 15:59 Intake Total 1340 / 1340 540 / 540 1080 / 1080 Output Total 600 / 600 200 / 200 Balance 740 / 740 340 / 340 1080 / 1080 Intake: IV Fluids 860 / 860 300 / 300 Cipro Premix 400 MG/200 ML 400 400 / 400 200 / 200 mg In 200 ml @ 200 mls/hr IVPB Q12HR [facility] Rx#:[id number] Flagyl Premix 500 MG/100 ML 500 200 / 200 100 / 100 mg In 100 ml @ 100 mls/hr IVPB Q8HR [facility] Rx#:[id number] Potassium Phosphate 44 MEQ In 0 260 / 260 .9 % Sodium Chloride 250 ML @ 40 mls/hr IVPB ONCE ONE Rx#: [id number] Oral 480 / 480 240 / 240 1080 / 1080 Output: Catheter 600 / 600 200 / 200 Other: Meal Lunch Weight 79.379 kg Patient Weight 08/12/17 23:59 Weight 79.379 kg - Additional Exam Constitutional: Alert, in no acute distress, well nourished, well developed. Head: Normocephalic, atraumatic, normal contour and symmetric, no masses, lesions or scars Heart: Normal, regular rate and rhythm, no murmurs Lungs: + scattered wheezing, no , rales, or rhonchi Abdomen: mild distention and suprapubic tenderness, Soft, nondistended, and no masses palpable, bowel sounds present and normal, no guarding or rigidity. Extremities: No clubbing, cyanosis, or edema, radial pulse +2/4, capillary refill <2sec. Skin: Skin warm and dry, no lesions, no rashes, no jaundice : lea present at urethral meatus urine yellow, orange, scrotum without edema , Neurologic: Cranial nerves II through XII grossly intact, no focal deficits, strength within normal limits in all extremities Psych: Cooperative with exam, good eye contact, cognitive function intact, judgment good insight good, speech clear, thought process logical, and goal directed - Labs 08/12/17 04:07 08/12/17 04:07 Diabetes panel 08/12/17 Range/Units 04:07 Sodium 138 (136-145) mEq/L Potassium 3.6 (3.5-4.5) mEq/L Chloride 105 (98-109) mEq/L Carbon Dioxide 25 (19-29) mEq/L BUN 9 (8-26) mg/dL Creatinine 0.89 (0.72-1.25) mg/dL Glucose 126 H (70-99) mg/dL Calcium 8.7 (8.6-10.8) mg/dL Calcium panel 08/12/17 Range/Units 04:07 Calcium 8.7 (8.6-10.8) mg/dL Pituitary panel 08/12/17 Range/Units 04:07 Sodium 138 (136-145) mEq/L Potassium 3.6 (3.5-4.5) mEq/L Chloride 105 (98-109) mEq/L Carbon Dioxide 25 (19-29) mEq/L BUN 9 (8-26) mg/dL Creatinine 0.89 (0.72-1.25) mg/dL Glucose 126 H (70-99) mg/dL Calcium 8.7 (8.6-10.8) mg/dL Adrenal panel 08/12/17 Range/Units 04:07 Sodium 138 (136-145) mEq/L Potassium 3.6 (3.5-4.5) mEq/L Chloride 105 (98-109) mEq/L Carbon Dioxide 25 (19-29) mEq/L BUN 9 (8-26) mg/dL Creatinine 0.89 (0.72-1.25) mg/dL Glucose 126 H (70-99) mg/dL Calcium 8.7 (8.6-10.8) mg/dL - VTE Documentation of Mechanical Device: Intermittent pneumatic compression device Consult Discharge Plan - Plan Referrals: [facility] [Outside] <Masha Faustin - Last Filed: 08/12/17 13:45> Date of Encounter: 08/12/17 - Assessment and Plan (1) Sudden of family member Current Visit: Yes Status: Acute patient has requested to go to his brothers visitation tomorrow which starts around 1 pm we discussed that he is able to go but I asked that he have his family bring his stuff to the hospital and the patient get ready while here we discussed that while out he cannot eat any solid food as he has already done his bowel prep and it could compromise his surgery planned for monday. He expressed understanding and knows he can only drink CLEAR liquids he is allowed to attend his brothers visitation - this has been discussed with nursing (2) Colovesical fistula Current Visit: Yes Status: Acute clears continue lovenox and get last dose tomorrow night plan OR monday (3) HTN (hypertension) Current Visit: Yes Status: Acute normotensive, monitor, continue home meds Qualifiers: Hypertension type: unspecified Qualified Code(s): I10 - Essential (primary ) hypertension (4) Hypercholesteremia Current Visit: Yes Status: Acute (5) Hyperlipidemia Current Visit: Yes Status: Acute Qualifiers: Hyperlipidemia type: unspecified Qualified Code(s): E78.5 - Hyperlipidemia , unspecified (6) Tobacco abuse Current Visit: Yes Status: Acute Subjective Narrative: patient without complaints today tolerating clears no abdominal pain or nausea states his brother has and visitation is tomorrow and the monday and he is wondering if he can go to visitation tomorrow for a few hours Objective Vital Signs - Last 8 Hours Temp Pulse Resp BP Pulse Ox 08/12/17 10:41 98.3 F 52 14 112/65 97 08/12/17 07:00 98.2 F 62 17 114/64 96 Intake and Output 08/11/17 08/12/17 08/12/17 23:59 07:59 15:59 Intake Total 1340 / 1340 540 / 540 1080 / 1080 Output Total 600 / 600 200 / 200 Balance 740 / 740 340 / 340 1080 / 1080 Intake: IV Fluids 860 / 860 300 / 300 Cipro Premix 400 MG/200 ML 400 400 / 400 200 / 200 mg In 200 ml @ 200 mls/hr IVPB Q12HR [facility] Rx#:[id number] Flagyl Premix 500 MG/100 ML 500 200 / 200 100 / 100 mg In 100 ml @ 100 mls/hr IVPB Q8HR [facility] Rx#:[id number] Potassium Phosphate 44 MEQ In 0 260 / 260 .9 % Sodium Chloride 250 ML @ 40 mls/hr IVPB ONCE ONE Rx#: [id number] Oral 480 / 480 240 / 240 1080 / 1080 Output: Catheter 600 / 600 200 / 200 Other: Meal Lunch Weight 79.379 kg Patient Weight 08/12/17 23:59 Weight 79.379 kg - General physical appearance well developed, well nourished, no distress - Eyes PERRL, normal ocular movement - ENT normal mucosa, normocephalic - Neck Neck exam: trachea midline - Respiratory normal expansion, clear to auscultation - Cardiovascular Cardiovascular exam: Present: RRR - Abdomen Abdomen: Present: bowel sounds present, soft, non tender - Integumentary no rash, no growths - Neurologic CN 2-12 grossly intact - Musculoskeletal normal posture - Psychiatric oriented to time, oriented to person, memory intact - Labs 08/12/17 04:07 08/12/17 04:07 Diabetes panel 08/12/17 Range/Units 04:07 Sodium 138 (136-145) mEq/L Potassium 3.6 (3.5-4.5) mEq/L Chloride 105 (98-109) mEq/L Carbon Dioxide 25 (19-29) mEq/L BUN 9 (8-26) mg/dL Creatinine 0.89 (0.72-1.25) mg/dL Glucose 126 H (70-99) mg/dL Calcium 8.7 (8.6-10.8) mg/dL Calcium panel 08/12/17 Range/Units 04:07 Calcium 8.7 (8.6-10.8) mg/dL Pituitary panel 08/12/17 Range/Units 04:07 Sodium 138 (136-145) mEq/L Potassium 3.6 (3.5-4.5) mEq/L Chloride 105 (98-109) mEq/L Carbon Dioxide 25 (19-29) mEq/L BUN 9 (8-26) mg/dL Creatinine 0.89 (0.72-1.25) mg/dL Glucose 126 H (70-99) mg/dL Calcium 8.7 (8.6-10.8) mg/dL Adrenal panel 08/12/17 Range/Units 04:07 Sodium 138 (136-145) mEq/L Potassium 3.6 (3.5-4.5) mEq/L Chloride 105 (98-109) mEq/L Carbon Dioxide 25 (19-29) mEq/L BUN 9 (8-26) mg/dL Creatinine 0.89 (0.72-1.25) mg/dL Glucose 126 H (70-99) mg/dL Calcium 8.7 (8.6-10.8) mg/dL - Attending Attestation I examined this patient and my medical decision-making was reviewed with the Resident Physician. I agree with the documented findings, disposition and treatment plan as described except to the extent set forth below.
[2017-08-12] MEDS: Albuterol 2.5 MG/3 ML NEBULIZER IH SCH ×3 (14:02→21:24)
[2017-08-13] MEDS: *HR* Enoxaparin 80 MG/0.8 ML SYRINGE SQ SCH ×2 (05:32→18:44)
[2017-08-13] MEDS: MetroNIDAZOLE 500 MG/100 ML 500 MG/100 ML BAG IVPB SCH ×3 (07:57→23:11)
[2017-08-13] MEDS: Aspirin 81 MG TAB.CHEW PO SCH (07:59)
[2017-08-13] MEDS: Albuterol 2.5 MG/3 ML NEBULIZER IH SCH ×3 (10:11→22:17)
--- NOTE | 2017-08-13 12:45 | General Surgery Progress Note ---
<Alexandria Barillas - Last Filed: 08/13/17 12:41> Date of Encounter: 08/13/17 Time of Encounter: 08:40 - Assessment and Plan (1) Colovesical fistula Current Visit: Yes Status: Acute Patient has a chief complaint of suprapubic abdominal pain for [address] scan at [place] showed colovestical fistula, most likely due to diverticulosis. Patient has been febrile and was started on Cipro and Flagyl. Urology was consulted and believes patient does not require a CT urogram and CT cystogram as images clearly show the site of fistula between the sigmoid colon and the dome of the bladder. Patient will require surgery to resolve the fistula. Cardiology was consulted due to patient having recent cardiac catheter with stent placement 6 weeks ago and is on Plavix and aspirin. Cardiology recommended stopping Plavix and starting Lovenox for 5 days until surgery. Patient given bowel prep and still not clear. Colonoscopy showed: multiple small and large-mouthed diverticula in the sigmoid colon. Severe angulation at the rectosigmoid at the suspected area of fistula. Patient will stay due to being unable to discharge patient under leave of absence. Planned surgery tomorrow. Plan: - Cardiology and UG already consulted - Plavix stopped. Will stop Lovenox tonight. - continue clear liquid diet - magnesium citrate - Arrange planned leaved of absence. - plan for OR on Monday (2) Pneumaturia Current Visit: Yes Status: Acute Secondary to cholovestical fistula. CT of the abdomen and pelvis shows abnormal gas seen within the bladder. Lea currently present. Will plan for surgical repair on Monday. (3) CAD (coronary artery disease) Current Visit: Yes Status: Acute Patient heart catheter with cardiac stent placed 6 weeks ago. Patient is on Plavix and aspirin for therapy. Per Cardiology's recommendations, plavix stopped 08/09 and Lovenox added. patient must be off Plavix 5 days prior to surgery. Qualifiers: Coronary Disease-Associated Artery/Lesion type: [place] artery [place] vs. transplanted heart: [place] heart Associated angina: with stable angina Qualified Code(s): I25.118 - Atherosclerotic heart disease of [place] coronary artery with other forms of angina pectoris (4) HTN (hypertension) Current Visit: Yes Status: Acute We will continue home medications of metoprolol 12.5 mg by mouth twice a day and lisinopril 5 mg by mouth daily. BP well controlled. Qualifiers: Hypertension type: unspecified Qualified Code(s): I10 - Essential (primary ) hypertension (5) Hypercholesteremia Current Visit: Yes Status: Acute We will continue home medication of Lipitor 80 mg by mouth daily. (6) Tobacco abuse Current Visit: Yes Status: Acute Patient given nicotine patch 14 mg daily. (7) Diverticulosis Current Visit: Yes Status: Acute CT of the abdomen and pelvis from the [place] shows extensive diverticulosis of the sigmoid colon and to a lesser degree the remainder of the colon. Most likely cause of the colovesticular fistula. Confirmed diverticulosis of the sigmoid colon on colonoscopy. Qualifiers: Diverticulosis site: diverticulosis of large intestine Qualified Code(s): K57.30 - Diverticulosis of large intestine without perforation or abscess without bleeding (8) Hypokalemia, gastrointestinal losses Current Visit: Yes Status: Acute K= 3.3 (3.4). Patient given 44meq of potassium phosphate IV today and 40meq potassium orally. Will continue to monitor. Resolved as K= 3.6 08/12/17. Subjective Narrative: Mr. Alamo is a 66 year old male with a past medical history of cardiac stent 6 weeks ago, hypertension, hyperlipidemia came in with a chief complaint of abdominal pain 2 weeks. Patient was a [place] transfer to [place] ED for a CT finding of a vesticulo-sigmoid fistula admitted to the surgical service. Today patient is tolerating clear liquids well without N/V. His urine output contains less stool than yesterday. Objective Vital Signs - Last 8 Hours Temp Pulse Resp BP Pulse Ox 08/13/17 07:02 98.0 F 62 18 131/72 97 Intake and Output 08/12/17 08/13/17 08/13/17 23:59 07:59 15:59 Intake Total 660 / 660 300 / 300 860 / 860 Output Total 700 / 700 Balance 660 / 660 -400 / -400 860 / 860 Intake: IV Fluids 300 / 300 300 / 300 Cipro Premix 400 MG/200 ML 400 200 / 200 200 / 200 mg In 200 ml @ 200 mls/hr IVPB Q12HR [facility] Rx#:[id number] Flagyl Premix 500 MG/100 ML 500 100 / 100 100 / 100 mg In 100 ml @ 100 mls/hr IVPB Q8HR [facility] Rx#:[id number] Oral 360 / 360 0 / 0 860 / 860 Output: Urine 0 / 0 Catheter 700 / 700 Other: Meal Clears Percent of Meal Consumed 0% - Additional Exam Constitutional: Alert, in no acute distress, well nourished, well developed. Head: Normocephalic, atraumatic, normal contour and symmetric, no masses, lesions or scars Heart: Normal, regular rate and rhythm, no murmurs Lungs: + scattered wheezing, no , rales, or rhonchi Abdomen: mild distention and suprapubic tenderness, Soft, nondistended, and no masses palpable, bowel sounds present and normal, no guarding or rigidity. Extremities: No clubbing, cyanosis, or edema, radial pulse +2/4, capillary refill <2sec. Skin: Skin warm and dry, no lesions, no rashes, no jaundice : lea present at urethral meatus urine yellow, orange, scrotum without edema , Neurologic: Cranial nerves II through XII grossly intact, no focal deficits, strength within normal limits in all extremities Psych: Cooperative with exam, good eye contact, cognitive function intact, judgment good insight good, speech clear, thought process logical, and goal directed - Labs 08/12/17 04:07 08/12/17 04:07 - VTE Documentation of Mechanical Device: Intermittent pneumatic compression device Consult Discharge Plan - Plan Referrals: [facility] [Outside] <Masha Faustin - Last Filed: 08/13/17 15:00> Date of Encounter: 08/13/17 - Assessment and Plan (1) Sudden of family member Current Visit: Yes Status: Acute patient has decided that he does not feel well enough to go to the visitation (2) Colovesical fistula Current Visit: Yes Status: Acute stop lovenox after tonights dose ordered 1 bottle mag citrate for today as still having brown but liquid stools continue clears npo midnight for planned OR tomorrow (3) HTN (hypertension) Current Visit: Yes Status: Chronic well controlled, continue home meds Qualifiers: Hypertension type: unspecified Qualified Code(s): I10 - Essential (primary ) hypertension (4) Hypercholesteremia Current Visit: Yes Status: Acute (5) Hyperlipidemia Current Visit: Yes Status: Acute Qualifiers: Hyperlipidemia type: unspecified Qualified Code(s): E78.5 - Hyperlipidemia , unspecified (6) Tobacco abuse Current Visit: Yes Status: Acute Subjective Patient reports: still having pain, tolerating liquids well, flatus, bowel movement Objective Vital Signs - Last 8 Hours Temp Pulse Resp BP Pulse Ox 08/13/17 07:02 98.0 F 62 18 131/72 97 Intake and Output 08/12/17 08/13/17 08/13/17 23:59 07:59 15:59 Intake Total 660 / 660 300 / 300 860 / 860 Output Total 700 / 700 Balance 660 / 660 -400 / -400 860 / 860 Intake: IV Fluids 300 / 300 300 / 300 Cipro Premix 400 MG/200 ML 400 200 / 200 200 / 200 mg In 200 ml @ 200 mls/hr IVPB Q12HR [facility] Rx#:[id number] Flagyl Premix 500 MG/100 ML 500 100 / 100 100 / 100 mg In 100 ml @ 100 mls/hr IVPB Q8HR [facility] Rx#:[id number] Oral 360 / 360 0 / 0 860 / 860 Output: Urine 0 / 0 Catheter 700 / 700 Other: Meal Clears Percent of Meal Consumed 0% - General physical appearance well developed, well nourished, no distress - Eyes PERRL, normal ocular movement - ENT normal mucosa, normocephalic - Neck Neck exam: trachea midline - Respiratory normal expansion, clear to auscultation - Abdomen Abdomen: Present: bowel sounds present, soft, tender. Absent: guarding, rebound Abdominal Tenderness: suprapubic, diffusely - Genitourinary normal penis with no external lesions, other (lea in place) - Integumentary no rash, no growths - Neurologic CN 2-12 grossly intact - Musculoskeletal normal posture - Psychiatric oriented to time, oriented to person, oriented to place, speech is normal, memory intact - Labs 08/12/17 04:07 08/12/17 04:07 - Attending Attestation I examined this patient and my medical decision-making was reviewed with the Resident Physician. I agree with the documented findings, disposition and treatment plan as described except to the extent set forth below.
[2017-08-13] MEDS: Nicotine 14 MG PATCH.TD24 TD SCH (12:59)
[2017-08-13] MEDS: *HR* HYDROmorphone (PF) 1 MG/ML SYRINGE IVP PRN ×2 (16:43→23:12)
[2017-08-14 05:36] LABS: Basophils % 0.2 %; Eosinophils # 0.4 K/mcL (0.0-0.6); Eosinophils % 4.1 %; Hematocrit 35.3 % (37.5-50.1); Hemoglobin 11.8 g/dL (12.9-16.9); Immature Granulocytes % 0.7 % (0-4); Lymphocytes # 1.8 K/mcL (0.6-4.6); Lymphocytes % 20.5 %; Mean Corpuscular HGB Conc 33.4 g/dL (31.6-35.5); Mean Corpuscular Hemoglobin 28.4 pg (28.0-33.3); Mean Corpuscular Volume 84.9 fL (83.0-100.0); Mean Platelet Volume 10.3 fL (9.4-12.4); Monocytes % 11.1 %; Neutrophils # 5.4 K/mcL (1.6-8.9); Platelet Count 287 K/mcL (140-400); Red Blood Count 4.16 M/mcL (4.19-5.50); Red Cell Distribution Width 12.4 % (11.5-14.5); Segmented Neutrophils % 63.4 %
[2017-08-14] MEDS: *HR* HYDROmorphone (PF) 1 MG/ML SYRINGE IVP PRN ×9 (05:44→23:05)
[2017-08-14 05:53] LABS: BUN/Creatinine Ratio 6 (6-26); Calcium 8.6 mg/dL (8.6-10.8); Carbon Dioxide 25 mEq/L (19-29); Chloride 106 mEq/L (98-109); Glucose 95 mg/dL (70-99); Magnesium 1.9 mg/dL (1.6-2.6); Osmolality,Calculated 285 (280-300); Phosphorous 2.4 mg/dL (2.3-4.7); Potassium 3.6 mEq/L (3.5-4.5); Sodium 139 mEq/L (136-145); eGFR For African Americans > 60 (> 60); eGFR For Non-African Americans > 60 (> 60)
[2017-08-14 05:57] LABS: Blood Urea Nitrogen 5 mg/dL (8-26)
[2017-08-14] MEDS: Albuterol 2.5 MG/3 ML NEBULIZER IH SCH ×4 (08:04→23:14)
[2017-08-14] MEDS: MetroNIDAZOLE 500 MG/100 ML 500 MG/100 ML BAG IVPB SCH ×2 (08:09→23:05)
[2017-08-14] MEDS: Aspirin 81 MG TAB.CHEW PO SCH (08:17)
[2017-08-14] MEDS: Nicotine 14 MG PATCH.TD24 TD SCH (08:17)
[2017-08-14] MEDS ORDERED: Ringers Solution, Lactated 500 ML IVC ONE ×3 (09:14→22:09)
[2017-08-14] MEDS ORDERED: 0.9 % Sodium Chloride 1,000 ML IVC SCH (09:15)
[2017-08-14] MEDS ORDERED: Pantoprazole 40 MG VIAL IVP SCH (11:04)
[2017-08-14] MEDS: Ipratropium/Albuterol Neb 3 ML IH SCH ×7 (11:25→22:08)
[2017-08-14] MEDS ORDERED: D10% in Water 500 ML IVC PRN ×2 (11:32→22:09)
[2017-08-14] MEDS ORDERED: Lidocaine -MPF 1% 2 ML VIAL INFILT ONE (11:52)
[2017-08-14] MEDS ORDERED: Ipratropium/Albuterol Neb 3 ML ONE (13:47)
--- NOTE | 2017-08-14 13:50 | Anesthesia Evaluation PreOp ---
Date of Encounter: 08/14/17 Time of Encounter: 16:14 - Past History Planned Operation: sigmoid colectomy, partial cystectomy Cardiac History: MD (6 weeks ago), Hyperlipidemia, Cardiac Stent (CATRACHO 6 weeks ago to LAD) Pulmonary History: Smoker (currently 1/2 ppd since MD. Was smoking 2ppd x 40 yrs ), Pack/yr (80) HOSPITAL SECURITY OFFICER History: Denies Any Significant HX Other Medical History: Other (colovesical fistula) Anesthesia History: No Prior Anesthetic Complications, Past Anesthesia ( circumcision, tonsils, colonoscopy) Alcohol Use: occasionally Drug use: none Medications and Allergies Albuterol Sulfate [Albuterol Inhaler] 2 puff IH QID PRN 08/08/17 [History] Aspirin Enteric Coated [Aspirin EC] 81 mg PO DAILY 08/08/17 [History] Atorvastatin Calcium [Lipitor] 80 mg PO HS 08/08/17 [History] Clopidogrel [Plavix] 75 mg PO DAILY 08/08/17 [History] Lisinopril [Zestril] 5 mg PO DAILY 08/08/17 [History] Methocarbamol [Robaxin] 500 mg PO Q6H PRN 08/08/17 [History] Metoprolol [Lopressor] 12.5 mg PO BID 08/08/17 [History] Nicotine Patch [Nicoderm] 14 mg TD DAILY 08/08/17 [History] Sildenafil Citrate [Viagra] 100 mg PO AD PRN 08/08/17 [History] 3 Allergy/AdvReac Type Severity Reaction Status Date / Time azithromycin Allergy See Verified 08/08/17 17:35 Comments Penicillins Allergy See Verified 08/08/17 17:35 Comments - Meds/Allergy Pre-op Review Medications Reviewed: Yes Allergies Reviewed: Yes Beta Blockers on Current Med List: Yes (held today per Dr Thao) Anesthesia Results - Labs 08/14/17 05:27 08/14/17 05:27 - Imaging Additional studies: Cardiology consult reviewed Anesthesia Exam Selected Entries 08/14/17 10:36 Temperature 98.1 F Pulse Rate 47 Respiratory Rate 18 Blood Pressure 116/65 O2 Sat by Pulse Oximetry 96 Weight: 78kg NPO (# of Hours): 8 Pain Scale: 0 Pain Scale Used: Numeric (1 - 10) - HEENT Pupil (Motor): EOMI Mallampati: II Teeth: Edentulous Oral Opening: Greater than 3 - HOSPITAL SECURITY OFFICER LOC: Oriented HOSPITAL SECURITY OFFICER Motor: Normal RUE, Normal LUE, Normal RLE, Normal LLE, Normal Face HOSPITAL SECURITY OFFICER Sensory: Normal: RUE, LUE, RLE, LLE, Face - Cardiac Rhythm: Regular Murmur: None - Pulmonary Breath Sounds: bilateral Clear Respiratory Effort: Symmetrical Anesthesia Assess/Plan ASA Score: 4 Modified Maria D Scale for Level of Consciousness: Cooperative, oriented, and tranquil Anesthetic Plan: General Monitoring Plan: Standard Monitors, A-Line (possible) Recovery Plan: PACU (Discussed risks of GA, may need ICU post-op based on his intra-op performance. Agrees to proceed.)
[2017-08-14] MEDS ORDERED: Heparin 1,000 UNITS/500 mL NS 500 ML ONE (15:30)
[2017-08-14] MEDS ORDERED: *HR* Rocuronium Bromide 50 MG/5 ML VIAL ONE (15:44)
[2017-08-14] MEDS ORDERED: Lidocaine 1% 20 ML MDV ONE (15:48)
[2017-08-14] MEDS ORDERED: Povidone-Iodine 28.4 GM TUBE TP ONE (16:15)
[2017-08-14] MEDS ORDERED: Clinimix E 5%-15% SOLUTION 2,000 ML with MVI, adult with vitamin K 10 ML IVC SCH ×2 (17:00→22:09)
--- NOTE | 2017-08-14 17:11 | Electrocardiograph Report ---
[place] [address] Test Date: 2017-08-14 Pat Name: Andrade Alamo Department: 115 Room: 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
[2017-08-14] MEDS ORDERED: cefOXitin 2,000 MG in D5% in Water (Mini-Bag+) 100 ML IVPB ONE (17:14)
--- NOTE | 2017-08-14 17:19 | Electrocardiograph Report ---
[address] [address] Test Date: 2017-08-14 Pat Name: Andrade Alamo Department: 115 Room: 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
[2017-08-14] MEDS ORDERED: Acetaminophen IV 1,000 MG/100 ML INFUS..BTL ONE (17:28)
[2017-08-14] MEDS ORDERED: *HR* Labetalol 100 MG/20 ML MDV ONE (17:28)
[2017-08-14] MEDS ORDERED: *HR* Labetalol 20 MG/4 ML SYRINGE IVP PRN ×2 (17:32→22:09)
[2017-08-14] MEDS ORDERED: *HR* Meperidine 25 MG/ML SYRINGE IVP PRN (17:32)
[2017-08-14] MEDS ORDERED: Ondansetron 4 MG/2 ML VIAL IVP PRN (17:32)
[2017-08-14] MEDS ORDERED: *HR* FentaNYL (PF) 100 MCG/2 ML VIAL ONE ×2 (17:37→19:16)
--- NOTE | 2017-08-14 19:08 | Operative Note ---
Date of procedure: 08/14/17 Pre-op diagnosis: Colovesical fistula secondary to diverticular disease Post-op diagnosis: same Procedure: #1 sigmoid colectomy #2 resection of the dome of the bladder (colovesical fistula) Anesthesia: ANTOINE Surgeon: Brice Thao Estimated blood loss (cc): 100 Specimen: #1 sigmoid colon #2 dome of the bladder (colovesical fistula) Condition: stable Disposition: PACU Procedure in Detail: After informed consent the patient was taken to the major operative suite placed in the supine position and given adequate general anesthetic. The abdomen was prepped and draped in sterile fashion utilizing ChloraPrep standard draping techniques. Timeout was taken patient was identified. Made a vertical midline incision and entered the abdomen. There was a baseball-sized inflammatory mass in the mesentery of the sigmoid colon affixed to the left side of the bladder. Over period of 20 minutes was able to circumferentially dissected this area. I mobilized the sigmoid colon laterally and identified the ureter on the left side. The inflammatory changes on the side of the bladder had drawn the vas deferens into the side of the bladder. I was able to dissect this away. Was finally able to mobilize the colon off a area of granulation tissue and inflammation on the left lateral sidewall of the pelvis. From this area was able to use a right angle clamp to find the fistula leading into the bladder. Once this was done on was able to completely resect this area and send this for pathologic evaluation. This left an opening in the dome of the bladder. The dome of the bladder was then closed in 2 layers. The first layer was running locking 3-0 chromic. The second layer was interrupted muscular layer closure with 0 Vicryl. This gave an excellent technical result area I was able to divide the rectum at the rectosigmoid junction with a contour stapler. I was able to divide the junction between the descending and sigmoid colon with a contour stapler. The sigmoid colon was completely removed along with the inflammatory mass in the mesentery. Mesentery was divided with clamps and hemostatic ligatures. This gave an excellent technical result. Blood loss was 100 mL. I then performed a handsewn anastomosis using 2-0 silk seromuscular stitches and 3-0 chromic mucosal closure. This gave an excellent technical result. Mesentery was closed with interrupted Vicryl. I placed a # 10 William-Russo drain at the dome of the bladder. The midline was closed with looped 0 PDS. Copious amounts of antibiotic containing solution were used to clear the abdomen. Skin was closed with interrupted Vicryl and skin clips. He tolerated the procedure well.
[2017-08-14] MEDS ORDERED: CefOXitin 2,000 MG VIAL IVPB ONE (19:16)
[2017-08-14] MEDS ORDERED: Lidocaine -MPF 2% 2 ML VIAL ONE (19:16)
[2017-08-14] MEDS ORDERED: Esmolol 100 MG/10 ML VIAL IVP ONE (19:16)
[2017-08-14] MEDS ORDERED: *HR* Remifentanil 2 MG VIAL IVP ONE (19:16)
[2017-08-14] MEDS ORDERED: *HR* Metoprolol 5 MG/5 ML VIAL IVP ONE (19:16)
[2017-08-14] MEDS ORDERED: *HR* HYDROmorphone 2 MG/ML SYRINGE ONE (19:16)
[2017-08-14] MEDS ORDERED: Neostigmine Methylsulfate 3 MG/3 ML SYRINGE ONE (19:16)
[2017-08-14] MEDS ORDERED: Dexamethasone 4 MG/ML VIAL ONE (19:16)
[2017-08-14] MEDS ORDERED: *HR* Midazolam HCl 2 MG/2 ML VIAL ONE (19:16)
[2017-08-14] MEDS ORDERED: Ondansetron 4 MG/2 ML VIAL ONE (19:16)
[2017-08-14] MEDS ORDERED: Lidocaine -MPF 4% 5 ML AMPUL ONE (19:16)
--- NOTE | 2017-08-14 20:05 | Anesthesia Evaluation Post Op ---
Date of Encounter: 08/14/17 Time of Encounter: 20:03 - Vital Signs Vital Signs: Vital Signs/O2 Sat, Most Current Temp Pulse Resp BP Pulse Ox 98.2 F 64 12 175/78 95 08/14/17 19:40 08/14/17 19:50 08/14/17 19:50 08/14/17 19:50 08/14/17 19:50 - Lungs Lungs: Clear Ascult./Percussion - Airway Airway: Non-obstructed - Cardiovascular Regular Rate - Mental Status Mental Status: Alert & Oriented, Answers Appropriately - Pain Pain Scale: 7 (dilaudid 2mg) Pain Scale used: Numeric (1 - 10) - Nausea Vomiting Nausea Vomiting: Not Present - Hydration Hydration: NPO - Discharge PostOp Status: Transfer Patient to floor (pt awake, max dose dilaudid,pupils pinpoint, labetolol, sleeping intermittently, VSS)
[2017-08-14] MEDS: *HR* Metoprolol 5 MG/5 ML VIAL IVP SCH (23:05)
[2017-08-14] MEDS: 0.9 % Sodium Chloride 1,000 ML IVC SCH (23:06)
[2017-08-15] MEDS: *HR* HYDROmorphone (PF) 1 MG/ML SYRINGE IVP PRN ×11 (00:48→21:18)
[2017-08-15] MEDS: Ipratropium/Albuterol Neb 3 ML IH SCH ×7 (00:50→23:58)
[2017-08-15] MEDS: Pantoprazole 40 MG VIAL IVP SCH ×2 (05:14→17:28)
[2017-08-15] MEDS: *HR* Metoprolol 5 MG/5 ML VIAL IVP SCH ×3 (05:14→17:28)
[2017-08-15 05:22] LABS: Basophils % 0.1 %; Hematocrit 35.6 % (37.5-50.1); Hemoglobin 12.1 g/dL (12.9-16.9); Immature Granulocytes % 0.8 % (0-4); Lymphocytes # 0.5 K/mcL (0.6-4.6); Lymphocytes % 3.7 %; Mean Corpuscular Hemoglobin 28.9 pg (28.0-33.3); Mean Corpuscular Volume 85.2 fL (83.0-100.0); Mean Platelet Volume 10.8 fL (9.4-12.4); Monocytes # 0.6 K/mcL (0.0-1.3); Monocytes % 4.4 %; Neutrophils # 12.7 K/mcL (1.6-8.9); Platelet Count 309 K/mcL (140-400); Red Blood Count 4.18 M/mcL (4.19-5.50); Red Cell Distribution Width 12.3 % (11.5-14.5)
[2017-08-15 05:24] LABS: Magnesium 1.7 mg/dL (1.6-2.6); Phosphorous 2.8 mg/dL (2.3-4.7)
[2017-08-15 05:25] LABS: BUN/Creatinine Ratio 7 (6-26); Calcium 8.3 mg/dL (8.6-10.8); Carbon Dioxide 26 mEq/L (19-29); Chloride 106 mEq/L (98-109); Glucose 155 mg/dL (70-99); Osmolality,Calculated 286 (280-300); Potassium 3.9 mEq/L (3.5-4.5); Sodium 138 mEq/L (136-145); eGFR For African Americans > 60 (> 60); eGFR For Non-African Americans > 60 (> 60)
[2017-08-15 05:48] LABS: Blood Urea Nitrogen 5 mg/dL (8-26)
[2017-08-15] MEDS: Aspirin 81 MG TAB.CHEW PO SCH (07:54)
[2017-08-15] MEDS: Ondansetron 4 MG/2 ML VIAL IVP PRN ×2 (07:54→14:51)
[2017-08-15] MEDS: MetroNIDAZOLE 500 MG/100 ML 500 MG/100 ML BAG IVPB SCH ×2 (08:10→16:38)
[2017-08-15] MEDS: Nicotine 14 MG PATCH.TD24 TD SCH (08:15)
[2017-08-15] MEDS: Albuterol 2.5 MG/3 ML NEBULIZER IH SCH ×3 (08:52→22:47)
[2017-08-15] MEDS: *HR* Enoxaparin 80 MG/0.8 ML SYRINGE SQ SCH ×2 (09:01→17:28)
[2017-08-15] MEDS: 0.9 % Sodium Chloride 1,000 ML IVC SCH (09:02)
--- NOTE | 2017-08-15 10:41 | General Surgery Progress Note ---
<Mary Lux - Last Filed: 08/15/17 13:45> Date of Encounter: 08/15/17 Time of Encounter: 10:41 - Assessment and Plan (1) Colovesical fistula Current Visit: Yes Status: Acute POD #1 (08/14/2017 Dr. Thao) #1 sigmoid colectomy with primary anastomosis #2 resection of the dome of the bladder (colovesical fistula) PT received an additional 8 hours of IV hydration post-operatively TPN at goal (Total IVF rate is TPN goal) At best, faint hypoactive bowels sounds States discomfort is controlled currently and desires some ice chips for comfort Incisions are clean, dry, and intact; no signs of infection noted He is a-febrile. Increase in WBC an expected reaction from recent surgical procedure. Will continue to monitor Plan: -total IV fluid rate at TPN goal; will consider small boluses if needed -NPO except 1/2 cup ice chips Q8 hours -PT OT eval and treat for discharge planning Up at least TID to chair, ambulate halls with assistance -incentive spirometry 102 hour while awake -duonebs -nicotine patch, encouraged smoking cessation (2) DVT prophylaxis Current Visit: Yes Status: Acute He is on therapeutic weight based Lovenox for recent cardiovascular stenting (3) Hx of heart artery stent Current Visit: Yes Status: Acute See above (4) Tobacco abuse Current Visit: Yes Status: Acute See above Objective Vital Signs - Last 8 Hours Temp Pulse Resp BP Pulse Ox 08/15/17 08:55 16 98 08/15/17 07:19 97.7 F 174/79 94 08/15/17 03:56 98.2 F 66 15 157/79 96 Intake and Output 08/14/17 08/15/17 08/15/17 23:59 07:59 15:59 Intake Total 100 / 100 1300 / 1300 Output Total 1130 / 1130 1210 / 1210 Balance -1030 / -1030 90 / 90 Intake: IV Fluids 100 / 100 1300 / 1300 0.9 % Sodium Chloride 1,000 ML 1000 / 1000 @ 125 mls/hr IVC .Q8H [facility] Rx#: [id number] Cipro Premix 400 MG/200 ML 400 200 / 200 mg In 200 ml @ 200 mls/hr IVPB Q12HR [facility] Rx#:[id number] Flagyl Premix 500 MG/100 ML 500 100 / 100 mg In 100 ml @ 100 mls/hr IVPB Q8HR [facility] Rx#:[id number] Mefoxin 2,000 MG In Dextrose 5% 100 / 100 (Minibag+) 100 ML 100 ML @ 200 mls/hr IVPB ONCE ONE Rx#: [id number] Oral 0 / 0 Output: Urine 300 / 300 Estimated Blood Loss 100 / 100 Urine Amount (Catheter) 925 / 925 Catheter 900 / 900 Wound Drainage 105 / 105 10 Left Lower Abdomen 55 / 55 Other: Meal NPO Weight 79.6 kg Blood Glucose* 159 Patient Weight 08/15/17 23:59 Weight 79.6 kg - General physical appearance no distress, no pain - Eyes normal ocular movement - ENT normal nares, atraumatic, normocephalic - Neck Neck exam: trachea midline, no venous distension - Respiratory normal expansion, normal respiratory effort, clear to auscultation - Cardiovascular Cardiovascular exam: Present: RRR, murmurs - Abdomen Abdomen: Present: soft, tender (Expected postoperative). Absent: bowel sounds present (Possibly faint at best) Hernia: none - Incision Incision: Present: clean and dry, intact - Genitourinary other (Back catheter noted) - Integumentary no rash - Neurologic CN 2-12 grossly intact, normal coordination - Musculoskeletal normal gait, normal posture - Psychiatric oriented to time, oriented to person, oriented to place, speech is normal, memory intact - Labs 08/15/17 05:00 08/15/17 05:00 Diabetes panel 08/15/17 08/15/17 Range/Units 05:00 05:00 Sodium 138 (136-145) mEq/L Potassium 3.9 (3.5-4.5) mEq/L Chloride 106 (98-109) mEq/L Carbon Dioxide 26 (19-29) mEq/L BUN 5 L (8-26) mg/dL Creatinine 0.71 L (0.72-1.25) mg/dL Glucose 155 H (70-99) mg/dL Calcium 8.3 L (8.6-10.8) mg/dL Triglycerides 50 (< 150) mg/dL Calcium panel 08/15/17 08/15/17 Range/Units 05:00 05:00 Calcium 8.3 L (8.6-10.8) mg/dL Phosphorus 2.8 (2.3-4.7) mg/dL Pituitary panel 08/15/17 Range/Units 05:00 Sodium 138 (136-145) mEq/L Potassium 3.9 (3.5-4.5) mEq/L Chloride 106 (98-109) mEq/L Carbon Dioxide 26 (19-29) mEq/L BUN 5 L (8-26) mg/dL Creatinine 0.71 L (0.72-1.25) mg/dL Glucose 155 H (70-99) mg/dL Calcium 8.3 L (8.6-10.8) mg/dL Adrenal panel 08/15/17 Range/Units 05:00 Sodium 138 (136-145) mEq/L Potassium 3.9 (3.5-4.5) mEq/L Chloride 106 (98-109) mEq/L Carbon Dioxide 26 (19-29) mEq/L BUN 5 L (8-26) mg/dL Creatinine 0.71 L (0.72-1.25) mg/dL Glucose 155 H (70-99) mg/dL Calcium 8.3 L (8.6-10.8) mg/dL - VTE Documentation of Mechanical Device: Intermittent pneumatic compression device Consult Discharge Plan - Plan Referrals: [facility] [Outside] <Brice Thao - Last Filed: 08/16/17 07:36> Date of Encounter: 08/15/17 Objective Vital Signs - Last 8 Hours Temp Pulse Resp BP Pulse Ox 08/16/17 04:20 98.3 F 63 16 146/68 96 08/16/17 00:39 98.3 F 74 16 174/88 96 Intake and Output 08/15/17 08/15/17 08/16/17 15:59 23:59 07:59 Intake Total 200 / 200 400 / 400 550 / 550 Output Total 670 / 670 900 / 900 Balance -470 / -470 -500 / -500 550 / 550 Intake: IV Fluids 200 / 200 400 / 400 550 / 550 Ofirmev 1,000 mg/100 ml 1,000 100 / 100 100 / 100 200 / 200 mg In 100 ml @ 400 mls/hr IVPB Q6HR [facility] Rx#:[id number] Cipro Premix 400 MG/200 ML 400 200 / 200 mg In 200 ml @ 200 mls/hr IVPB Q12HR [facility] Rx#:[id number] Intralipid 20% 250 ML @ 21 mls/ 250 / 250 hr IVPB DAILY@1700 [facility] Rx#: [id number] Flagyl Premix 500 MG/100 ML 500 100 / 100 100 / 100 100 / 100 mg In 100 ml @ 100 mls/hr IVPB Q8HR [facility] Rx#:[id number] Oral 0 / 0 0 / 0 Output: Catheter 650 / 650 900 / 900 Wound Drainage Left Lower Abdomen Other: Meal Lunch NPO NPO Dinner Weight 78.9 kg Blood Glucose* 160 163 102 Patient Weight 08/16/17 23:59 Weight 78.9 kg - Labs 08/16/17 06:27 08/16/17 06:27 Diabetes panel 08/16/17 Range/Units 06:27 Sodium 136 (136-145) mEq/L Potassium 3.1 L (3.5-4.5) mEq/L Chloride 103 (98-109) mEq/L Carbon Dioxide 29 (19-29) mEq/L BUN 6 L (8-26) mg/dL Creatinine 0.65 L (0.72-1.25) mg/dL Glucose 111 H (70-99) mg/dL Calcium 8.1 L (8.6-10.8) mg/dL Calcium panel 08/16/17 Range/Units 06:27 Calcium 8.1 L (8.6-10.8) mg/dL Phosphorus 2.6 (2.3-4.7) mg/dL Pituitary panel 08/16/17 Range/Units 06:27 Sodium 136 (136-145) mEq/L Potassium 3.1 L (3.5-4.5) mEq/L Chloride 103 (98-109) mEq/L Carbon Dioxide 29 (19-29) mEq/L BUN 6 L (8-26) mg/dL Creatinine 0.65 L (0.72-1.25) mg/dL Glucose 111 H (70-99) mg/dL Calcium 8.1 L (8.6-10.8) mg/dL Adrenal panel 08/16/17 Range/Units 06:27 Sodium 136 (136-145) mEq/L Potassium 3.1 L (3.5-4.5) mEq/L Chloride 103 (98-109) mEq/L Carbon Dioxide 29 (19-29) mEq/L BUN 6 L (8-26) mg/dL Creatinine 0.65 L (0.72-1.25) mg/dL Glucose 111 H (70-99) mg/dL Calcium 8.1 L (8.6-10.8) mg/dL - Attending Attestation I have personally performed a face to face evaluation on this patient. I have reviewed and agree with the care plan. History and Exam by me shows: The patient is seen and evaluated on morning rounds. He is doing quite well after resection of colovesical fistula and sigmoid colectomy. We will plan on continuing Back catheter drainage for minimum of 2 weeks. We will await bowel function to advance his diet. Brice Thao MD FACS
[2017-08-15] MEDS: Acetaminophen IV 1,000 MG/100 ML INFUS..BTL IVPB SCH ×2 (12:53→18:29)
[2017-08-15] MEDS ORDERED: Clinimix E 5%-15% SOLUTION 2,000 ML with MVI, adult with vitamin K 10 ML IVC SCH (17:00)
[2017-08-16] MEDS: *HR* HYDROmorphone (PF) 1 MG/ML SYRINGE IVP PRN ×9 (00:32→22:30)
[2017-08-16] MEDS: *HR* Metoprolol 5 MG/5 ML VIAL IVP SCH ×4 (00:32→17:22)
[2017-08-16] MEDS: MetroNIDAZOLE 500 MG/100 ML 500 MG/100 ML BAG IVPB SCH ×3 (00:33→15:53)
[2017-08-16] MEDS: Acetaminophen IV 1,000 MG/100 ML INFUS..BTL IVPB SCH ×4 (02:15→17:19)
[2017-08-16] MEDS: Ipratropium/Albuterol Neb 3 ML IH SCH ×5 (04:30→20:09)
[2017-08-16] MEDS: Pantoprazole 40 MG VIAL IVP SCH ×2 (05:30→17:27)
[2017-08-16] MEDS: *HR* Enoxaparin 80 MG/0.8 ML SYRINGE SQ SCH ×2 (06:40→17:28)
[2017-08-16 06:45] LABS: BUN/Creatinine Ratio 9 (6-26); Blood Urea Nitrogen 6 mg/dL (8-26); Calcium 8.1 mg/dL (8.6-10.8); Carbon Dioxide 29 mEq/L (19-29); Chloride 103 mEq/L (98-109); Glucose 111 mg/dL (70-99); Magnesium 1.6 mg/dL (1.6-2.6); Osmolality,Calculated 280 (280-300); Phosphorous 2.6 mg/dL (2.3-4.7); Potassium 3.1 mEq/L (3.5-4.5); Sodium 136 mEq/L (136-145); eGFR For African Americans > 60 (> 60); eGFR For Non-African Americans > 60 (> 60)
[2017-08-16 07:06] LABS: Basophils % 0.1 %; Eosinophils # 0.2 K/mcL (0.0-0.6); Eosinophils % 1.5 %; Hematocrit 32.4 % (37.5-50.1); Hemoglobin 10.9 g/dL (12.9-16.9); Immature Granulocytes % 0.6 % (0-4); Lymphocytes # 1.5 K/mcL (0.6-4.6); Lymphocytes % 12.3 %; Mean Corpuscular HGB Conc 33.6 g/dL (31.6-35.5); Mean Corpuscular Hemoglobin 28.2 pg (28.0-33.3); Mean Corpuscular Volume 83.7 fL (83.0-100.0); Mean Platelet Volume 10.2 fL (9.4-12.4); Monocytes # 1.1 K/mcL (0.0-1.3); Monocytes % 9.1 %; Neutrophils # 9.3 K/mcL (1.6-8.9); Platelet Count 326 K/mcL (140-400); Red Blood Count 3.87 M/mcL (4.19-5.50); Red Cell Distribution Width 12.3 % (11.5-14.5); Segmented Neutrophils % 76.4 %
--- NOTE | 2017-08-16 07:40 | General Surgery Progress Note ---
<Alexandria Barillas - Last Filed: 08/16/17 07:19> Date of Encounter: 08/16/17 Time of Encounter: 07:00 - Assessment and Plan (1) Colovesical fistula Current Visit: Yes Status: Acute Patient has a chief complaint of suprapubic abdominal pain for [address] [place] showed colovestical fistula, most likely due to diverticulosis. Patient has been febrile and was started on Cipro and Flagyl. Urology was consulted and believes patient does not require a CT urogram and CT cystogram as images clearly show the site of fistula between the sigmoid colon and the dome of the bladder. Patient will require surgery to resolve the fistula. Cardiology was consulted due to patient having recent cardiac catheter with stent placement 6 weeks ago and is on Plavix and aspirin. Cardiology recommended stopping Plavix and starting Lovenox for 5 days until surgery. Colonoscopy showed: multiple small and large-mouthed diverticula in the sigmoid colon. Severe angulation at the rectosigmoid at the suspected area of fistula. POD 2 (08/14/17 Dr. Thao) of sigmoid colectomy with primary anastomosis and resection of the dome of the bladder (colovesical fistula). Abdominal pain is less today Patient denies flatus or BM. Bowel sounds present. Intermittent Febrile overnight max 100.7.No tachycardia or tachypnea. WBC = 12.1 (14). Incision clean, dry and intact. Plan: - TPN at total fluid rate at TPN goal - NPO except half a cup of ice chips Q8 hrs - Lovenox for anticoagulation for heart stent - Incisions are clean, dry, and intact; no signs of infection noted - duonebs and incentive spirometry 10 x 2hrs while awake - nicotine patches - (2) Pneumaturia Current Visit: Yes Status: Resolved Secondary to cholovestical fistula. CT of the abdomen and pelvis shows abnormal gas seen within the bladder. Lea currently present. S/P sigmoid colectomy with primary anastomosis with resection of the dome of the bladder. Resolved. (3) CAD (coronary artery disease) Current Visit: Yes Status: Acute Patient heart catheter with cardiac stent placed 6 weeks ago. Patient is on Plavix and aspirin for therapy. Per Cardiology's recommendations, plavix stopped 08/09 and Lovenox added. Continuing on Lovenox for now s/p sigmoid cholectomy. Qualifiers: Coronary Disease-Associated Artery/Lesion type: [place] artery [place] vs. transplanted heart: [place] heart Associated angina: with stable angina Qualified Code(s): I25.118 - Atherosclerotic heart disease of [place] coronary artery with other forms of angina pectoris (4) HTN (hypertension) Current Visit: Yes Status: Chronic lopressor 5mg IVP Q6hrs. BP well controlled. Qualifiers: Hypertension type: unspecified Qualified Code(s): I10 - Essential (primary ) hypertension (5) Tobacco abuse Current Visit: Yes Status: Acute Patient given nicotine patch 14 mg daily. (6) Diverticulosis Current Visit: Yes Status: Acute CT of the abdomen and pelvis from the [place] shows extensive diverticulosis of the sigmoid colon and to a lesser degree the remainder of the colon. Most likely cause of the colovesticular fistula. Confirmed diverticulosis of the sigmoid colon on colonoscopy. Qualifiers: Diverticulosis site: diverticulosis of large intestine Qualified Code(s): K57.30 - Diverticulosis of large intestine without perforation or abscess without bleeding (7) Hypokalemia, gastrointestinal losses Current Visit: Yes Status: Acute K= 3.1 (3.9). Patient currently on TPN and will be replaced through that. Continue to monitor in the morning. Subjective Narrative: Mr. Alamo is a 66 year old male with a past medical history of cardiac stent 6 weeks ago, hypertension, hyperlipidemia came in with a chief complaint of abdominal pain 2 weeks. Patient was a [place] transfer to [place] [facility] for a CT finding of a vesticulo-sigmoid fistula admitted to the surgical service. Patient is POD #2 of a sigmoid colectomy with primary anastomosis and resection of the dome of the bladder (colovesical fistula). Today patient says, he is feeling better than yesterday and was able to get some sleep last night. He has had less abdominal. Denies flatus or BM. Objective Vital Signs - Last 8 Hours Temp Pulse Resp BP Pulse Ox 08/16/17 04:20 98.3 F 63 16 146/68 96 08/16/17 00:39 98.3 F 74 16 174/88 96 Intake and Output 08/15/17 08/15/17 08/16/17 15:59 23:59 07:59 Intake Total 200 / 200 400 / 400 450 / 450 Output Total 670 / 670 900 / 900 Balance -470 / -470 -500 / -500 450 / 450 Intake: IV Fluids 200 / 200 400 / 400 450 / 450 Ofirmev 1,000 mg/100 ml 1,000 100 / 100 100 / 100 100 / 100 mg In 100 ml @ 400 mls/hr IVPB Q6HR [facility] Rx#:[id number] Cipro Premix 400 MG/200 ML 400 200 / 200 mg In 200 ml @ 200 mls/hr IVPB Q12HR [facility] Rx#:[id number] Intralipid 20% 250 ML @ 21 mls/ 250 / 250 hr IVPB DAILY@1700 [facility] Rx#: [id number] Flagyl Premix 500 MG/100 ML 500 100 / 100 100 / 100 100 / 100 mg In 100 ml @ 100 mls/hr IVPB Q8HR [facility] Rx#:[id number] Oral 0 / 0 0 / 0 Output: Catheter 650 / 650 900 / 900 Wound Drainage 20 / 20 Left Lower Abdomen 20 / 20 Other: Meal Lunch NPO NPO Dinner Weight 78.9 kg Blood Glucose* 160 163 102 Patient Weight 08/16/17 23:59 Weight 78.9 kg - Additional Exam Constitutional: Alert, in no acute distress, well nourished, well developed. Head: Normocephalic, atraumatic, normal contour and symmetric, no masses, lesions or scars Heart: Normal, regular rate and rhythm, no murmurs Lungs: + scattered wheezing especially on left, no rales, or rhonchi Abdomen: midline incision stapled, well approximated with minimal serosanguinous drainage and healing well without signs of infection, NITA drain LLQ draining serosanguinous fluid, distension and tenderness diffusely, Soft, and no masses palpable, bowel sounds present and normal, no guarding or rigidity. Extremities: No clubbing, cyanosis, or edema, radial pulse +2/4, capillary refill <2sec. Skin: Skin warm and dry, no lesions, no rashes, no jaundice : lea present urine yellow, orange, scrotum without edema, Neurologic: Cranial nerves II through XII grossly intact, no focal deficits, strength within normal limits in all extremities Psych: Cooperative with exam, good eye contact, cognitive function intact, judgment good insight good, speech clear, thought process logical, and goal directed - Labs 08/16/17 06:27 08/16/17 06:27 Diabetes panel 08/16/17 Range/Units 06:27 Sodium 136 (136-145) mEq/L Potassium 3.1 L (3.5-4.5) mEq/L Chloride 103 (98-109) mEq/L Carbon Dioxide 29 (19-29) mEq/L BUN 6 L (8-26) mg/dL Creatinine 0.65 L (0.72-1.25) mg/dL Glucose 111 H (70-99) mg/dL Calcium 8.1 L (8.6-10.8) mg/dL Calcium panel 08/16/17 Range/Units 06:27 Calcium 8.1 L (8.6-10.8) mg/dL Phosphorus 2.6 (2.3-4.7) mg/dL Pituitary panel 08/16/17 Range/Units 06:27 Sodium 136 (136-145) mEq/L Potassium 3.1 L (3.5-4.5) mEq/L Chloride 103 (98-109) mEq/L Carbon Dioxide 29 (19-29) mEq/L BUN 6 L (8-26) mg/dL Creatinine 0.65 L (0.72-1.25) mg/dL Glucose 111 H (70-99) mg/dL Calcium 8.1 L (8.6-10.8) mg/dL Adrenal panel 08/16/17 Range/Units 06:27 Sodium 136 (136-145) mEq/L Potassium 3.1 L (3.5-4.5) mEq/L Chloride 103 (98-109) mEq/L Carbon Dioxide 29 (19-29) mEq/L BUN 6 L (8-26) mg/dL Creatinine 0.65 L (0.72-1.25) mg/dL Glucose 111 H (70-99) mg/dL Calcium 8.1 L (8.6-10.8) mg/dL - VTE Documentation of Mechanical Device: Intermittent pneumatic compression device Consult Discharge Plan - Plan Referrals: [facility] [Outside] <Brice Thao - Last Filed: 08/16/17 17:43> Date of Encounter: 08/16/17 Objective Vital Signs - Last 8 Hours Temp Pulse Resp BP Pulse Ox 08/16/17 12:31 97.9 F 66 18 150/74 93 08/16/17 10:01 96 Intake and Output 08/16/17 08/16/17 08/16/17 07:59 15:59 23:59 Intake Total 750 / 750 100 / 100 Output Total 1120 / 1120 Balance 750 / 750 -1020 / -1020 Intake: IV Fluids 750 / 750 100 / 100 Ofirmev 1,000 mg/100 ml 1,000 200 / 200 mg In 100 ml @ 400 mls/hr IVPB Q6HR [facility] Rx#:[id number] Cipro Premix 400 MG/200 ML 400 200 / 200 mg In 200 ml @ 200 mls/hr IVPB Q12HR [facility] Rx#:[id number] Intralipid 20% 250 ML @ 21 mls/ 250 / 250 hr IVPB DAILY@1700 [facility] Rx#: [id number] Flagyl Premix 500 MG/100 ML 500 100 / 100 100 / 100 mg In 100 ml @ 100 mls/hr IVPB Q8HR [facility] Rx#:[id number] Output: Catheter 1100 / 1100 Wound Drainage Left Lower Abdomen Other: Meal NPO Weight 78.9 kg Blood Glucose* 102 130 Patient Weight 08/16/17 23:59 Weight 78.9 kg - Labs 08/16/17 06:27 08/16/17 06:27 Diabetes panel 08/16/17 Range/Units 06:27 Sodium 136 (136-145) mEq/L Potassium 3.1 L (3.5-4.5) mEq/L Chloride 103 (98-109) mEq/L Carbon Dioxide 29 (19-29) mEq/L BUN 6 L (8-26) mg/dL Creatinine 0.65 L (0.72-1.25) mg/dL Glucose 111 H (70-99) mg/dL Calcium 8.1 L (8.6-10.8) mg/dL Calcium panel 08/16/17 Range/Units 06:27 Calcium 8.1 L (8.6-10.8) mg/dL Phosphorus 2.6 (2.3-4.7) mg/dL Pituitary panel 08/16/17 Range/Units 06:27 Sodium 136 (136-145) mEq/L Potassium 3.1 L (3.5-4.5) mEq/L Chloride 103 (98-109) mEq/L Carbon Dioxide 29 (19-29) mEq/L BUN 6 L (8-26) mg/dL Creatinine 0.65 L (0.72-1.25) mg/dL Glucose 111 H (70-99) mg/dL Calcium 8.1 L (8.6-10.8) mg/dL Adrenal panel 08/16/17 Range/Units 06:27 Sodium 136 (136-145) mEq/L Potassium 3.1 L (3.5-4.5) mEq/L Chloride 103 (98-109) mEq/L Carbon Dioxide 29 (19-29) mEq/L BUN 6 L (8-26) mg/dL Creatinine 0.65 L (0.72-1.25) mg/dL Glucose 111 H (70-99) mg/dL Calcium 8.1 L (8.6-10.8) mg/dL - Attending Attestation I examined this patient and my medical decision-making was reviewed with the Resident Physician. I agree with the documented findings, disposition and treatment plan as described except to the extent set forth below. The patient is seen and evaluated on morning rounds. He is doing quite well after sigmoid colectomy and resection of colovesical fistula with primary bladder closure. His BUN/creatinine are normal. His white blood cell count is 12,000. He is afebrile. He is not passing any flatus yet. We will continue supportive care. We will continue Lovenox for his coronary artery stents as recommended by cardiology. Brice Thao MD FACS
[2017-08-16] MEDS: Albuterol 2.5 MG/3 ML NEBULIZER IH SCH ×3 (07:55→22:36)
[2017-08-16] MEDS: Aspirin 81 MG TAB.CHEW PO SCH (09:55)
[2017-08-16] MEDS: Nicotine 14 MG PATCH.TD24 TD SCH (09:55)
[2017-08-16] MEDS ORDERED: Potassium Chloride 40 MEQ, Lidocaine 1% 2 ML in D5% in Water 500 ML IVPB ONE (11:19)
[2017-08-16] MEDS ORDERED: Clinimix E 5%-15% SOLUTION 2,000 ML with MVI, adult with vitamin K 10 ML, Magnesium S... IVC SCH (17:00)
[2017-08-17] MEDS: *HR* Metoprolol 5 MG/5 ML VIAL IVP SCH ×4 (00:02→17:35)
[2017-08-17] MEDS: MetroNIDAZOLE 500 MG/100 ML 500 MG/100 ML BAG IVPB SCH ×4 (00:02→23:46)
[2017-08-17] MEDS: Acetaminophen IV 1,000 MG/100 ML INFUS..BTL IVPB SCH ×5 (00:03→23:47)
[2017-08-17] MEDS: *HR* HYDROmorphone (PF) 1 MG/ML SYRINGE IVP PRN ×12 (00:03→23:46)
[2017-08-17] MEDS: Ipratropium/Albuterol Neb 3 ML IH SCH ×7 (00:15→22:47)
[2017-08-17 05:12] LABS: Basophils % 0.2 %; Eosinophils # 0.5 K/mcL (0.0-0.6); Eosinophils % 3.6 %; Hematocrit 34.4 % (37.5-50.1); Hemoglobin 11.6 g/dL (12.9-16.9); Immature Granulocytes % 1.2 % (0-4); Immature Platelets 4.1 % (1.1-6.1); Lymphocytes # 1.9 K/mcL (0.6-4.6); Mean Corpuscular HGB Conc 33.7 g/dL (31.6-35.5); Mean Corpuscular Hemoglobin 28.8 pg (28.0-33.3); Mean Corpuscular Volume 85.4 fL (83.0-100.0); Mean Platelet Volume 9.9 fL (9.4-12.4); Monocytes # 1.3 K/mcL (0.0-1.3); Monocytes % 10.5 %; Neutrophils # 8.6 K/mcL (1.6-8.9); Platelet Count 316 K/mcL (140-400); Red Blood Count 4.03 M/mcL (4.19-5.50); Red Cell Distribution Width 12.5 % (11.5-14.5); Segmented Neutrophils % 69.5 %
[2017-08-17 05:24] LABS: BUN/Creatinine Ratio 13 (6-26); Blood Urea Nitrogen 8 mg/dL (8-26); Calcium 8.4 mg/dL (8.6-10.8); Carbon Dioxide 30 mEq/L (19-29); Chloride 102 mEq/L (98-109); Glucose 94 mg/dL (70-99); Magnesium 1.9 mg/dL (1.6-2.6); Osmolality,Calculated 280 (280-300); Phosphorous 2.7 mg/dL (2.3-4.7); Potassium 3.7 mEq/L (3.5-4.5); Sodium 136 mEq/L (136-145); eGFR For African Americans > 60 (> 60); eGFR For Non-African Americans > 60 (> 60)
[2017-08-17] MEDS: Pantoprazole 40 MG VIAL IVP SCH ×2 (06:32→17:35)
[2017-08-17] MEDS: *HR* Enoxaparin 80 MG/0.8 ML SYRINGE SQ SCH ×2 (06:53→18:05)
[2017-08-17] MEDS: Albuterol 2.5 MG/3 ML NEBULIZER IH SCH ×3 (07:44→22:21)
[2017-08-17] MEDS: Nicotine 14 MG PATCH.TD24 TD SCH (08:44)
[2017-08-17] MEDS: Aspirin 81 MG TAB.CHEW PO SCH (08:55)
--- NOTE | 2017-08-17 10:03 | General Surgery Progress Note ---
<Alexandria Barillas - Last Filed: 08/17/17 11:58> Date of Encounter: 08/17/17 Time of Encounter: 07:00 - Assessment and Plan (1) Colovesical fistula Current Visit: Yes Status: Acute Patient has a chief complaint of suprapubic abdominal pain for [address] scan [place] showed colovestical fistula, most likely due to diverticulosis. Patient has been febrile and was started on Cipro and Flagyl. Urology was consulted and believes patient does not require a CT urogram and CT cystogram as images clearly show the site of fistula between the sigmoid colon and the dome of the bladder. Patient will require surgery to resolve the fistula. Cardiology was consulted due to patient having recent cardiac catheter with stent placement 6 weeks ago and is on Plavix and aspirin. Cardiology recommended stopping Plavix and starting Lovenox for 5 days until surgery. Colonoscopy showed: multiple small and large-mouthed diverticula in the sigmoid colon. Severe angulation at the rectosigmoid at the suspected area of fistula. POD 3 (08/14/17 Dr. Thao) of sigmoid colectomy with primary anastomosis and resection of the dome of the bladder (colovesical fistula). Abdominal pain is less today Patient denies flatus or BM. Bowel sounds present. Intermittent Febrile overnight max 100.7.No tachycardia or tachypnea. WBC = 12.1 (14). Incision clean, dry and intact. NITA drained 170ml over the last 24 hrs. Will get creatinine of NITA drainage Plan: - NITA drainage creatinine level - TPN at total fluid rate at TPN goal - Advance diet to clears - Lovenox for anticoagulation for heart stent - Incisions are clean, dry, and intact; no signs of infection noted - duonebs and incentive spirometry 10 x 2hrs while awake - nicotine patches - (2) Pneumaturia Current Visit: Yes Status: Resolved Secondary to cholovestical fistula. CT of the abdomen and pelvis shows abnormal gas seen within the bladder. Lea currently present. S/P sigmoid colectomy with primary anastomosis with resection of the dome of the bladder. Resolved. (3) CAD (coronary artery disease) Current Visit: Yes Status: Acute Patient heart catheter with cardiac stent placed 6 weeks ago. Patient is on Plavix and aspirin for therapy. Per Cardiology's recommendations, plavix stopped 08/09 and Lovenox added. Continuing on Lovenox for now s/p sigmoid cholectomy. Qualifiers: Coronary Disease-Associated Artery/Lesion type: [place] artery [place] vs. transplanted heart: [place] heart Associated angina: with stable angina Qualified Code(s): I25.118 - Atherosclerotic heart disease of [place] coronary artery with other forms of angina pectoris (4) HTN (hypertension) Current Visit: Yes Status: Chronic lopressor 5mg IVP Q6hrs. BP well controlled. Qualifiers: Hypertension type: unspecified Qualified Code(s): I10 - Essential (primary ) hypertension (5) Tobacco abuse Current Visit: Yes Status: Acute Patient given nicotine patch 14 mg daily. (6) Diverticulosis Current Visit: Yes Status: Acute CT of the abdomen and pelvis from the [place] shows extensive diverticulosis of the sigmoid colon and to a lesser degree the remainder of the colon. Most likely cause of the colovesticular fistula. Confirmed diverticulosis of the sigmoid colon on colonoscopy. Qualifiers: Diverticulosis site: diverticulosis of large intestine Qualified Code(s): K57.30 - Diverticulosis of large intestine without perforation or abscess without bleeding (7) Hypokalemia, gastrointestinal losses Current Visit: Yes Status: Resolved K= 3.7 (3.1). Hypokalemia has resolved. Patient currently on TPN. Continue to monitor in the morning. Subjective Narrative: Mr. Alamo is a 66 year old male with a past medical history of cardiac stent 6 weeks ago, hypertension, hyperlipidemia came in with a chief complaint of abdominal pain 2 weeks. Patient was a [place] transfer to [place] [facility] for a CT finding of a vesticulo-sigmoid fistula admitted to the surgical service. Patient is POD #2 of a sigmoid colectomy with primary anastomosis and resection of the dome of the bladder (colovesical fistula). Today patient says, he is feeling good. He has had less abdominal pain. Denies flatus or BM. He has been having trouble sleeping at night which he does not typically take anything at home for. Patient later in the morning complained of feeling the urge to go to the bathroom and despite having the lea in he urinated around the lea and had to have the bedding changed due to the amount. Patient said he also had burning when this occurred. Objective Vital Signs - Last 8 Hours Temp Pulse Resp BP Pulse Ox 08/17/17 08:45 98.2 F 58 16 124/66 94 08/17/17 07:50 16 98 08/17/17 06:25 136/70 08/17/17 04:43 98.3 F 58 16 137/73 93 Intake and Output 08/16/17 08/17/17 08/17/17 23:59 07:59 15:59 Intake Total 300 / 300 550 / 550 Output Total 1480 / 1480 1570 / 1570 380 / 380 Balance -1180 / -1180 -1020 / -1020 -380 / -380 Intake: IV Fluids 300 / 300 550 / 550 Ofirmev 1,000 mg/100 ml 1,000 200 / 200 mg In 100 ml @ 400 mls/hr IVPB Q6HR [facility] Rx#:[id number] Cipro Premix 400 MG/200 ML 400 200 / 200 mg In 200 ml @ 200 mls/hr IVPB Q12HR [facility] Rx#:[id number] Intralipid 20% 250 ML @ 21 mls/ 250 / 250 hr IVPB DAILY@1700 [facility] Rx#: [id number] Flagyl Premix 500 MG/100 ML 500 100 / 100 100 / 100 mg In 100 ml @ 100 mls/hr IVPB Q8HR [facility] Rx#:[id number] Oral 0 / 0 Output: Catheter 1400 / 1400 1400 / 1400 300 / 300 Wound Drainage 80 / 80 170 / 170 80 / 80 Left Lower Abdomen 80 / 80 170 / 170 80 / 80 Other: Meal NPO NPO Percent of Meal Consumed 0% Weight 76.9 kg Blood Glucose* 126 122 Patient Weight 08/17/17 23:59 Weight 76.9 kg - Additional Exam Constitutional: Alert, in no acute distress, well nourished, well developed. Head: Normocephalic, atraumatic, normal contour and symmetric, no masses, lesions or scars Heart: Normal, regular rate and rhythm, no murmurs Lungs: + scattered wheezing and rhonchi especially on left, no rales, Abdomen: midline incision stapled, well approximated with minimal serosanguinous drainage and healing well without signs of infection, NITA drain LLQ draining serosanguinous fluid arond 0700 and clear with light yellow tinge later this morning, distension and mild tenderness diffusely, Soft, and no masses palpable, bowel sounds present and normal, no guarding or rigidity. Extremities: No clubbing, cyanosis, or edema, radial pulse +2/4, capillary refill <2sec. Skin: Skin warm and dry, no lesions, no rashes, no jaundice : lea present urine yellow, orange, scrotum without edema, Neurologic: Cranial nerves II through XII grossly intact, no focal deficits, strength within normal limits in all extremities Psych: Cooperative with exam, good eye contact, cognitive function intact, judgment good insight good, speech clear, thought process logical, and goal directed - Labs 08/17/17 05:00 08/17/17 05:00 Diabetes panel 08/17/17 Range/Units 05:00 Sodium 136 (136-145) mEq/L Potassium 3.7 (3.5-4.5) mEq/L Chloride 102 (98-109) mEq/L Carbon Dioxide 30 H (19-29) mEq/L BUN 8 (8-26) mg/dL Creatinine 0.63 L (0.72-1.25) mg/dL Glucose 94 (70-99) mg/dL Calcium 8.4 L (8.6-10.8) mg/dL Calcium panel 08/17/17 08/17/17 Range/Units 05:00 05:00 Calcium 8.4 L (8.6-10.8) mg/dL Phosphorus 2.7 (2.3-4.7) mg/dL Pituitary panel 08/17/17 Range/Units 05:00 Sodium 136 (136-145) mEq/L Potassium 3.7 (3.5-4.5) mEq/L Chloride 102 (98-109) mEq/L Carbon Dioxide 30 H (19-29) mEq/L BUN 8 (8-26) mg/dL Creatinine 0.63 L (0.72-1.25) mg/dL Glucose 94 (70-99) mg/dL Calcium 8.4 L (8.6-10.8) mg/dL Adrenal panel 08/17/17 Range/Units 05:00 Sodium 136 (136-145) mEq/L Potassium 3.7 (3.5-4.5) mEq/L Chloride 102 (98-109) mEq/L Carbon Dioxide 30 H (19-29) mEq/L BUN 8 (8-26) mg/dL Creatinine 0.63 L (0.72-1.25) mg/dL Glucose 94 (70-99) mg/dL Calcium 8.4 L (8.6-10.8) mg/dL - VTE Documentation of Mechanical Device: Intermittent pneumatic compression device Consult Discharge Plan - Plan Referrals: [facility] [Outside] <Brice Thao - Last Filed: 08/17/17 15:29> Date of Encounter: 08/17/17 Objective Vital Signs - Last 8 Hours Temp Pulse Resp BP Pulse Ox 08/17/17 08:45 98.2 F 58 16 124/66 94 08/17/17 07:50 16 98 Intake and Output 08/16/17 08/17/17 08/17/17 23:59 07:59 15:59 Intake Total 300 / 300 550 / 550 300 / 300 Output Total 1480 / 1480 1570 / 1570 380 / 380 Balance -1180 / -1180 -1020 / -1020 -80 / -80 Intake: IV Fluids 300 / 300 550 / 550 300 / 300 Ofirmev 1,000 mg/100 ml 1,000 200 / 200 mg In 100 ml @ 400 mls/hr IVPB Q6HR [facility] Rx#:[id number] Cipro Premix 400 MG/200 ML 400 200 / 200 200 / 200 mg In 200 ml @ 200 mls/hr IVPB Q12HR [facility] Rx#:[id number] Intralipid 20% 250 ML @ 21 mls/ 250 / 250 hr IVPB DAILY@1700 [facility] Rx#: [id number] Flagyl Premix 500 MG/100 ML 500 100 / 100 100 / 100 100 / 100 mg In 100 ml @ 100 mls/hr IVPB Q8HR [facility] Rx#:[id number] Oral 0 / 0 Output: Catheter 1400 / 1400 1400 / 1400 300 / 300 Wound Drainage 80 / 80 170 / 170 80 / 80 Left Lower Abdomen 80 / 80 170 / 170 80 / 80 Other: Meal NPO NPO Percent of Meal Consumed 0% Weight 76.9 kg Blood Glucose* 126 122 Patient Weight 08/17/17 23:59 Weight 76.9 kg - Labs 08/17/17 05:00 08/17/17 05:00 Diabetes panel 08/17/17 Range/Units 05:00 Sodium 136 (136-145) mEq/L Potassium 3.7 (3.5-4.5) mEq/L Chloride 102 (98-109) mEq/L Carbon Dioxide 30 H (19-29) mEq/L BUN 8 (8-26) mg/dL Creatinine 0.63 L (0.72-1.25) mg/dL Glucose 94 (70-99) mg/dL Calcium 8.4 L (8.6-10.8) mg/dL Calcium panel 08/17/17 08/17/17 Range/Units 05:00 05:00 Calcium 8.4 L (8.6-10.8) mg/dL Phosphorus 2.7 (2.3-4.7) mg/dL Pituitary panel 08/17/17 Range/Units 05:00 Sodium 136 (136-145) mEq/L Potassium 3.7 (3.5-4.5) mEq/L Chloride 102 (98-109) mEq/L Carbon Dioxide 30 H (19-29) mEq/L BUN 8 (8-26) mg/dL Creatinine 0.63 L (0.72-1.25) mg/dL Glucose 94 (70-99) mg/dL Calcium 8.4 L (8.6-10.8) mg/dL Adrenal panel 08/17/17 Range/Units 05:00 Sodium 136 (136-145) mEq/L Potassium 3.7 (3.5-4.5) mEq/L Chloride 102 (98-109) mEq/L Carbon Dioxide 30 H (19-29) mEq/L BUN 8 (8-26) mg/dL Creatinine 0.63 L (0.72-1.25) mg/dL Glucose 94 (70-99) mg/dL Calcium 8.4 L (8.6-10.8) mg/dL - Attending Attestation I examined this patient and my medical decision-making was reviewed with the Resident Physician. I agree with the documented findings, disposition and treatment plan as described except to the extent set forth below. The patient is seen and evaluated on morning rounds with rest. He has good bowel sounds. His lungs are clear. His vital signs are normal. He has not passed flatus yet. He is having a high volume of [place] drainage and I would like to check this for creatinine to see if there is a leak from the dome of his bladder. He is progressing well. Brice Thao MD FACS
[2017-08-17] MEDS ORDERED: Clinimix E 5%-15% SOLUTION 2,000 ML with MVI, adult with vitamin K 10 ML, Magnesium S... IVC SCH (17:00)
[2017-08-18] MEDS: *HR* Metoprolol 5 MG/5 ML VIAL IVP SCH ×5 (00:01→23:48)
[2017-08-18] MEDS: *HR* HYDROmorphone (PF) 1 MG/ML SYRINGE IVP PRN ×8 (01:35→21:46)
[2017-08-18] MEDS: Ipratropium/Albuterol Neb 3 ML IH SCH ×6 (03:29→23:31)
[2017-08-18] MEDS: Acetaminophen IV 1,000 MG/100 ML INFUS..BTL IVPB SCH ×2 (05:00→12:06)
[2017-08-18] MEDS: Pantoprazole 40 MG VIAL IVP SCH ×2 (05:00→17:46)
[2017-08-18] MEDS: *HR* Enoxaparin 80 MG/0.8 ML SYRINGE SQ SCH ×2 (05:00→18:06)
[2017-08-18] MEDS: Albuterol 2.5 MG/3 ML NEBULIZER IH SCH ×3 (07:47→23:31)
[2017-08-18] MEDS ORDERED: *HR* Alteplase (Cathflo) 2 MG VIAL IVP ONE (08:32)
[2017-08-18] MEDS: MetroNIDAZOLE 500 MG/100 ML 500 MG/100 ML BAG IVPB SCH ×3 (08:32→23:49)
[2017-08-18] MEDS: Aspirin 81 MG TAB.CHEW PO SCH (08:32)
[2017-08-18] MEDS: Nicotine 14 MG PATCH.TD24 TD SCH (08:54)
[2017-08-18] MEDS ORDERED: Melatonin 3 MG TABLET PO PRN (09:57)
--- NOTE | 2017-08-18 09:59 | General Surgery Progress Note ---
<Alexandria Barillas - Last Filed: 08/18/17 11:59> Date of Encounter: 08/18/17 Time of Encounter: 09:58 - Assessment and Plan (1) Colovesical fistula Current Visit: Yes Status: Acute Patient has a chief complaint of suprapubic abdominal pain for [address] scan at [place] showed colovestical fistula, most likely due to diverticulosis. Patient has been febrile and was started on Cipro and Flagyl. Urology was consulted and believes patient does not require a CT urogram and CT cystogram as images clearly show the site of fistula between the sigmoid colon and the dome of the bladder. Patient will require surgery to resolve the fistula. Cardiology was consulted due to patient having recent cardiac catheter with stent placement 6 weeks ago and is on Plavix and aspirin. Cardiology recommended stopping Plavix and starting Lovenox for 5 days until surgery. Colonoscopy showed: multiple small and large-mouthed diverticula in the sigmoid colon. Severe angulation at the rectosigmoid at the suspected area of fistula. POD 4 (08/14/17 Dr. Thao) of sigmoid colectomy with primary anastomosis and resection of the dome of the bladder (colovesical fistula). Patient denies flatus or BM. Bowel sounds present. Denies N/V despite advancement to clears yesterday. Incision clean, dry and intact. NITA drained 450ml over the last 24 hrs. creatinine of NITA drainage was within normal limits therefore no leak. Will advance diet from clear to fulls. If tolerates well will drop TPN to 50% tomorrow. Plan: - TPN at total fluid rate at TPN goal - Diet: fulls - Lovenox for anticoagulation for heart stent - Incisions are clean, dry, and intact; no signs of infection noted - duonebs and incentive spirometry 10 x 2hrs while awake - nicotine patches - (2) Pneumaturia Current Visit: Yes Status: Resolved Secondary to cholovestical fistula. CT of the abdomen and pelvis shows abnormal gas seen within the bladder. Lea currently present. S/P sigmoid colectomy with primary anastomosis with resection of the dome of the bladder. Resolved. (3) CAD (coronary artery disease) Current Visit: Yes Status: Acute Patient heart catheter with cardiac stent placed 6 weeks ago. Patient is on Plavix and aspirin for therapy. Per Cardiology's recommendations, plavix stopped 08/09 and Lovenox added. Continuing on Lovenox for now s/p sigmoid cholectomy. Qualifiers: Coronary Disease-Associated Artery/Lesion type: [place] artery [place] vs. transplanted heart: [place] heart Associated angina: with stable angina Qualified Code(s): I25.118 - Atherosclerotic heart disease of [place] coronary artery with other forms of angina pectoris (4) HTN (hypertension) Current Visit: Yes Status: Chronic lopressor 5mg IVP Q6hrs. BP well controlled. Qualifiers: Hypertension type: unspecified Qualified Code(s): I10 - Essential (primary ) hypertension (5) Tobacco abuse Current Visit: Yes Status: Acute Patient given nicotine patch 14 mg daily. (6) Diverticulosis Current Visit: Yes Status: Acute CT of the abdomen and pelvis from the [place] shows extensive diverticulosis of the sigmoid colon and to a lesser degree the remainder of the colon. Most likely cause of the colovesticular fistula. Confirmed diverticulosis of the sigmoid colon on colonoscopy. Qualifiers: Diverticulosis site: diverticulosis of large intestine Qualified Code(s): K57.30 - Diverticulosis of large intestine without perforation or abscess without bleeding (7) Hypokalemia, gastrointestinal losses Current Visit: Yes Status: Resolved Hypokalemia has resolved. Patient currently on TPN. Continue to monitor in the morning. (8) Insomnia Current Visit: Yes Status: Acute Patient has been having trouble sleeping in the hospital. Patient given Benadryl and Melatonin. Qualifiers: Insomnia type: adjustment Qualified Code(s): F51.02 - Adjustment insomnia Subjective Narrative: Mr. Alamo is a 66 year old male with a past medical history of cardiac stent 6 weeks ago, hypertension, hyperlipidemia came in with a chief complaint of abdominal pain 2 weeks. Patient was a [facility] transfer to [place] [facility] for a CT finding of a vesticulo-sigmoid fistula admitted to the surgical service. Patient is s/p a sigmoid colectomy with primary anastomosis and resection of the dome of the bladder (colovesical fistula). Today patient says he is doing moderate. His diet was advanced to clears as yesterday and he is tolerating that without nausea or vomiting. Patient denies flatus, bowel movement. Patient states that he is having trouble sleeping despite the Benadryl given. Objective Vital Signs - Last 8 Hours Temp Pulse Resp BP Pulse Ox 08/18/17 07:50 16 95 08/18/17 06:52 97.4 F L 65 16 146/81 95 08/18/17 04:47 97.6 F 64 16 148/72 92 Intake and Output 08/17/17 08/18/17 08/18/17 23:59 07:59 15:59 Intake Total 400 / 400 650 / 650 Output Total 2150 / 2150 1525 / 1525 Balance -1750 / -1750 -875 / -875 Intake: IV Fluids 400 / 400 650 / 650 Ofirmev 1,000 mg/100 ml 1,000 200 / 200 200 / 200 mg In 100 ml @ 400 mls/hr IVPB Q6HR [facility] Rx#:[id number] Cipro Premix 400 MG/200 ML 400 100 / 100 100 / 100 mg In 200 ml @ 200 mls/hr IVPB Q12HR [facility] Rx#:[id number] Intralipid 20% 250 ML @ 21 mls/ 250 / 250 hr IVPB DAILY@1700 [facility] Rx#: [id number] Flagyl Premix 500 MG/100 ML 500 100 / 100 100 / 100 mg In 100 ml @ 100 mls/hr IVPB Q8HR [facility] Rx#:[id number] Oral 0 / 0 0 / 0 Infusion Intake 0 / 0 Output: Urine 0 / 0 Catheter 0 / 2050 1200 / 1200 Wound Drainage 100 / 100 325 / 325 Left Lower Abdomen 100 / 100 325 / 325 Other: Weight 78.471 kg Blood Glucose* 128 123 Patient Weight 08/18/17 23:59 Weight 78.471 kg - Additional Exam Constitutional: Alert, in no acute distress, well nourished, well developed. Head: Normocephalic, atraumatic, normal contour and symmetric, no masses, lesions or scars Heart: Normal, regular rate and rhythm, no murmurs Lungs: decrease wheezing from days prior, no rales, rhonchi Abdomen: midline incision stapled, well approximated with minimal serosanguinous drainage and healing well without signs of infection, NITA drain LLQ draining clear with light yellow tinge, distension and mild tenderness diffusely, Soft, and no masses palpable, bowel sounds present and normal, no guarding or rigidity. Extremities: No clubbing, cyanosis, or edema, radial pulse +2/4, capillary refill <2sec. Skin: Skin warm and dry, no lesions, no rashes, no jaundice : lea present urine yellow, orange, scrotum without edema, Neurologic: Cranial nerves II through XII grossly intact, no focal deficits, strength within normal limits in all extremities Psych: Cooperative with exam, good eye contact, cognitive function intact, judgment good insight good, speech clear, thought process logical, and goal directed - Labs 08/17/17 05:00 08/18/17 09:44 - VTE Documentation of Mechanical Device: Intermittent pneumatic compression device Consult Discharge Plan - Plan Referrals: [facility] [Outside] <Brice Thao - Last Filed: 08/18/17 14:59> Date of Encounter: 08/18/17 Objective Vital Signs - Last 8 Hours Temp Pulse Resp BP Pulse Ox 08/18/17 14:47 98.2 F 55 14 154/72 95 08/18/17 10:43 98.7 F 67 15 144/71 95 08/18/17 07:50 16 95 Intake and Output 08/17/17 08/18/17 08/18/17 23:59 07:59 15:59 Intake Total 400 / 400 650 / 650 800 / 800 Output Total 2150 / 2150 1525 / 1525 1500 / 1500 Balance -1750 / -1750 -875 / -875 -700 / -700 Intake: IV Fluids 400 / 400 650 / 650 200 / 200 Ofirmev 1,000 mg/100 ml 1,000 200 / 200 200 / 200 100 / 100 mg In 100 ml @ 400 mls/hr IVPB Q6HR [facility] Rx#:[id number] Cipro Premix 400 MG/200 ML 400 100 / 100 100 / 100 mg In 200 ml @ 200 mls/hr IVPB Q12HR [facility] Rx#:[id number] Intralipid 20% 250 ML @ 21 mls/ 250 / 250 hr IVPB DAILY@1700 [facility] Rx#: [id number] Flagyl Premix 500 MG/100 ML 500 100 / 100 100 / 100 100 / 100 mg In 100 ml @ 100 mls/hr IVPB Q8HR [facility] Rx#:[id number] Oral 0 / 0 0 / 0 600 / 600 Infusion Intake 0 / 0 Output: Urine 0 / 0 Catheter 2050 / 2050 1200 / 1200 1400 / 1400 Wound Drainage 100 / 100 325 / 325 100 / 100 Left Lower Abdomen 100 / 100 325 / 325 100 / 100 Other: Weight 78.471 kg Blood Glucose* 128 123 112 Patient Weight 08/18/17 23:59 Weight 78.471 kg - Labs 08/17/17 05:00 08/18/17 09:44 Diabetes panel 08/18/17 Range/Units 09:44 Sodium 135 L (136-145) mEq/L Potassium 3.8 (3.5-4.5) mEq/L Chloride 102 (98-109) mEq/L Carbon Dioxide 29 (19-29) mEq/L BUN 11 (8-26) mg/dL Creatinine 0.64 L (0.72-1.25) mg/dL Glucose 126 H (70-99) mg/dL Calcium 8.4 L (8.6-10.8) mg/dL Calcium panel 08/18/17 08/18/17 Range/Units 09:44 09:44 Calcium 8.4 L (8.6-10.8) mg/dL Phosphorus 3.0 (2.3-4.7) mg/dL Pituitary panel 08/18/17 Range/Units 09:44 Sodium 135 L (136-145) mEq/L Potassium 3.8 (3.5-4.5) mEq/L Chloride 102 (98-109) mEq/L Carbon Dioxide 29 (19-29) mEq/L BUN 11 (8-26) mg/dL Creatinine 0.64 L (0.72-1.25) mg/dL Glucose 126 H (70-99) mg/dL Calcium 8.4 L (8.6-10.8) mg/dL Adrenal panel 08/18/17 Range/Units 09:44 Sodium 135 L (136-145) mEq/L Potassium 3.8 (3.5-4.5) mEq/L Chloride 102 (98-109) mEq/L Carbon Dioxide 29 (19-29) mEq/L BUN 11 (8-26) mg/dL Creatinine 0.64 L (0.72-1.25) mg/dL Glucose 126 H (70-99) mg/dL Calcium 8.4 L (8.6-10.8) mg/dL - Attending Attestation I examined this patient and my medical decision-making was reviewed with the Resident Physician. I agree with the documented findings, disposition and treatment plan as described except to the extent set forth below. The patient was seen and evaluated with the resident on morning rounds. His pain control is excellent. He is leaking some urine around his Lea catheter. We tested William-Russo drain there is no evidence of intraperitoneal leak from the bladder dome. He has not yet had flatus but has good bowel sounds. Brice Thao MD FACS
[2017-08-18 10:33] LABS: BUN/Creatinine Ratio 17 (6-26); Blood Urea Nitrogen 11 mg/dL (8-26); Calcium 8.4 mg/dL (8.6-10.8); Carbon Dioxide 29 mEq/L (19-29); Chloride 102 mEq/L (98-109); Glucose 126 mg/dL (70-99); Magnesium 1.9 mg/dL (1.6-2.6); Osmolality,Calculated 281 (280-300); Potassium 3.8 mEq/L (3.5-4.5); Sodium 135 mEq/L (136-145); eGFR For African Americans > 60 (> 60); eGFR For Non-African Americans > 60 (> 60)
[2017-08-18] MEDS ORDERED: Acetaminophen 325 MG TABLET PO PRN (12:24)
[2017-08-18] MEDS ORDERED: Simethicone 80 MG TAB.CHEW PO PRN (16:42)
[2017-08-18] MEDS ORDERED: Clinimix E 5%-15% SOLUTION 2,000 ML with MVI, adult with vitamin K 10 ML, Magnesium S... IVC SCH (17:00)
[2017-08-18] MEDS: Ondansetron 4 MG/2 ML VIAL IVP PRN (20:20)
[2017-08-19] MEDS: *HR* HYDROmorphone (PF) 1 MG/ML SYRINGE IVP PRN ×5 (03:39→20:46)
[2017-08-19] MEDS: Ipratropium/Albuterol Neb 3 ML IH SCH ×6 (04:02→22:27)
[2017-08-19] MEDS: Pantoprazole 40 MG VIAL IVP SCH ×2 (05:38→17:24)
[2017-08-19] MEDS: *HR* Metoprolol 5 MG/5 ML VIAL IVP SCH ×3 (05:38→17:24)
[2017-08-19] MEDS: *HR* Enoxaparin 80 MG/0.8 ML SYRINGE SQ SCH ×2 (05:38→17:24)
[2017-08-19 06:53] LABS: BUN/Creatinine Ratio 18 (6-26); Blood Urea Nitrogen 12 mg/dL (8-26); Calcium 8.8 mg/dL (8.6-10.8); Carbon Dioxide 29 mEq/L (19-29); Chloride 102 mEq/L (98-109); Glucose 97 mg/dL (70-99); Magnesium 2.1 mg/dL (1.6-2.6); Osmolality,Calculated 282 (280-300); Phosphorous 3.1 mg/dL (2.3-4.7); Sodium 136 mEq/L (136-145); eGFR For African Americans > 60 (> 60); eGFR For Non-African Americans > 60 (> 60)
[2017-08-19] MEDS: *HR* OxyCODONE/APAP 10/325 TABLET PO PRN ×2 (07:08→15:21)
--- NOTE | 2017-08-19 07:17 | General Surgery Progress Note ---
Date of Encounter: 08/19/17 Time of Encounter: 07:15 - Assessment and Plan (1) Fistula Current Visit: Yes Status: Acute 66M s/p excision of colovesicular fistula now with post operative ileus; non septic - NPO, cont TPN - replete electrolytes - cont pain control, abx - serial exams (2) Postoperative ileus Current Visit: Yes Status: Acute encouraged patient to allow for NG tube attempt this morning; patient adamantly refusing - NG tube today; patient willing to try again later; discussed with patient risks of waiting, including increased abdominal distension, discomfort, stress on the repair, aspiration pneumonia, etc - replete electrolytes: K: 4.0; M.2; PO4: 3.0 activity as tolerated (3) Vomiting (bilious) following gastrointestinal surgery Current Visit: Yes Status: Acute see above antiemetic GI prophylaxis (4) Pain Current Visit: Yes Status: Acute cont IV pain meds; judicious use in light of ileus (5) DVT prophylaxis Current Visit: Yes Status: Acute cont DVT prophylaxis ambulate as tolerated Subjective Patient reports: feels better, no flatus, no bowel movement, vomiting (vomiting overnight; bilious in nature; NG attempted, but not inserted; patient currently refusing despite strong advise against waiting) Objective Vital Signs - Last 8 Hours Temp Pulse Resp BP Pulse Ox 08/19/17 03:38 99.0 F 75 15 156/74 91 08/19/17 00:09 99.2 F 65 15 128/79 94 Intake and Output 08/18/17 08/18/17 08/19/17 15:59 23:59 07:59 Intake Total 800 / 800 880 / 880 350 / 350 Output Total 1500 / 1500 2455 / 2455 725 / 725 Balance -700 / -700 -1575 / -1575 -375 / -375 Intake: IV Fluids 200 / 200 400 / 400 350 / 350 Ofirmev 1,000 mg/100 ml 1,000 100 / 100 mg In 100 ml @ 400 mls/hr IVPB Q6HR [facility] Rx#:[id number] Cipro Premix 400 MG/200 ML 400 300 / 300 mg In 200 ml @ 200 mls/hr IVPB Q12HR [facility] Rx#:[id number] Intralipid 20% 250 ML @ 21 mls/ 250 / 250 hr IVPB DAILY@1700 [facility] Rx#: [id number] Flagyl Premix 500 MG/100 ML 500 100 / 100 100 / 100 100 / 100 mg In 100 ml @ 100 mls/hr IVPB Q8HR [facility] Rx#:[id number] Oral 600 / 600 480 / 480 0 / 0 Infusion Intake 0 / 0 Output: Urine 0 / 0 Emesis 1600 / 1600 Catheter 1400 / 1400 775 / 775 600 / 600 Wound Drainage 100 / 100 80 / 80 125 / 125 Left Lower Abdomen 100 / 100 80 / 80 125 / 125 Other: Weight 78.2 kg Blood Glucose* 112 159 148 Patient Weight 08/19/17 23:59 Weight 78.2 kg - General physical appearance well developed, well nourished, no distress - Respiratory normal expansion, normal respiratory effort, clear to auscultation - Cardiovascular Cardiovascular exam: Present: RRR - Abdomen Abdomen: Present: soft, tympanic, distended (appropriately tender; non peritoneal), tender Hernia: none - Incision Incision: Present: clean and dry - Neurologic CN 2-12 grossly intact - Psychiatric oriented to time, oriented to person, oriented to place - Labs 08/17/17 05:00 08/19/17 05:50 Diabetes panel 08/18/17 08/19/17 Range/Units 09:44 05:50 Sodium 135 L 136 (136-145) mEq/L Potassium 3.8 4.0 (3.5-4.5) mEq/L Chloride 102 102 (98-109) mEq/L Carbon Dioxide 29 29 (19-29) mEq/L BUN 11 12 (8-26) mg/dL Creatinine 0.64 L 0.68 L (0.72-1.25) mg/dL Glucose 126 H 97 (70-99) mg/dL Calcium 8.4 L 8.8 (8.6-10.8) mg/dL Calcium panel 08/18/17 08/18/17 08/19/17 Range/Units 09:44 09:44 05:50 Calcium 8.4 L 8.8 (8.6-10.8) mg/dL Phosphorus 3.0 3.1 (2.3-4.7) mg/dL Pituitary panel 08/18/17 08/19/17 Range/Units 09:44 05:50 Sodium 135 L 136 (136-145) mEq/L Potassium 3.8 4.0 (3.5-4.5) mEq/L Chloride 102 102 (98-109) mEq/L Carbon Dioxide 29 29 (19-29) mEq/L BUN 11 12 (8-26) mg/dL Creatinine 0.64 L 0.68 L (0.72-1.25) mg/dL Glucose 126 H 97 (70-99) mg/dL Calcium 8.4 L 8.8 (8.6-10.8) mg/dL Adrenal panel 08/18/17 08/19/17 Range/Units 09:44 05:50 Sodium 135 L 136 (136-145) mEq/L Potassium 3.8 4.0 (3.5-4.5) mEq/L Chloride 102 102 (98-109) mEq/L Carbon Dioxide 29 29 (19-29) mEq/L BUN 11 12 (8-26) mg/dL Creatinine 0.64 L 0.68 L (0.72-1.25) mg/dL Glucose 126 H 97 (70-99) mg/dL Calcium 8.4 L 8.8 (8.6-10.8) mg/dL - VTE Documentation of Mechanical Device: Intermittent pneumatic compression device Consult Discharge Plan - Plan Referrals: [facility] [Outside]
[2017-08-19] MEDS: Albuterol 2.5 MG/3 ML NEBULIZER IH SCH ×3 (08:05→21:19)
[2017-08-19] MEDS: Aspirin 81 MG TAB.CHEW PO SCH (08:21)
[2017-08-19] MEDS: MetroNIDAZOLE 500 MG/100 ML 500 MG/100 ML BAG IVPB SCH ×2 (08:21→15:21)
[2017-08-19] MEDS: Nicotine 14 MG PATCH.TD24 TD SCH (08:30)
[2017-08-19] MEDS ORDERED: Clinimix E 5%-15% SOLUTION 2,000 ML with MVI, adult with vitamin K 10 ML IVC SCH (17:00)
[2017-08-20] MEDS: MetroNIDAZOLE 500 MG/100 ML 500 MG/100 ML BAG IVPB SCH ×3 (00:40→16:44)
[2017-08-20] MEDS: *HR* Metoprolol 5 MG/5 ML VIAL IVP SCH ×4 (00:41→17:40)
[2017-08-20] MEDS: *HR* HYDROmorphone (PF) 1 MG/ML SYRINGE IVP PRN ×6 (00:41→21:05)
[2017-08-20] MEDS: Ipratropium/Albuterol Neb 3 ML IH SCH ×5 (04:16→20:50)
[2017-08-20] MEDS: *HR* Enoxaparin 80 MG/0.8 ML SYRINGE SQ SCH ×2 (04:54→17:41)
[2017-08-20] MEDS: Pantoprazole 40 MG VIAL IVP SCH ×2 (04:54→17:41)
[2017-08-20] MEDS: Albuterol 2.5 MG/3 ML NEBULIZER IH SCH ×3 (08:04→20:51)
[2017-08-20] MEDS: Aspirin 81 MG TAB.CHEW PO SCH (08:59)
[2017-08-20] MEDS: Nicotine 14 MG PATCH.TD24 TD SCH (09:03)
--- NOTE | 2017-08-20 12:06 | General Surgery Progress Note ---
Date of Encounter: 08/20/17 Time of Encounter: 12:04 - Assessment and Plan (1) Fistula Current Visit: Yes Status: Acute 66M s/p excision of colovesicular fistula now with post operative ileus, currently resolving now that he is having return of bowel function; non septic - start CLD - limit to 250cc per shift in light of last episode; cont TPN at full strength - if continued improvement tomorrow, then can start full liquid and decreasing TPN - replete electrolytes - cont pain control, abx (2) Postoperative ileus Current Visit: Yes Status: Acute resolving, patient having return of bowel f unction - start CLD, limit to 250cc/shift - replete electrolytes: K: 4.0; M.2; PO4: 3.0 activity as tolerated (3) Vomiting (bilious) following gastrointestinal surgery Current Visit: Yes Status: Acute see above antiemetic as needed GI prophylaxis (4) Pain Current Visit: Yes Status: Acute cont IV pain meds; can begin PO pain meds for dinner/before bed (5) DVT prophylaxis Current Visit: Yes Status: Acute cont DVT prophylaxis ambulate as tolerated Subjective Patient reports: no new complaints, feels better, flatus, bowel movement (no acute events overnight; ambulating) Objective Vital Signs - Last 8 Hours Temp Pulse Resp BP Pulse Ox 08/20/17 07:15 98.2 F 70 18 122/69 93 Intake and Output 08/19/17 08/20/17 08/20/17 23:59 07:59 15:59 Intake Total 100 / 100 550 / 550 Output Total 1230 / 1230 910 / 910 Balance -1130 / -1130 -360 / -360 Intake: IV Fluids 100 / 100 550 / 550 Cipro Premix 400 MG/200 ML 400 200 / 200 mg In 200 ml @ 200 mls/hr IVPB Q12HR [facility] Rx#:[id number] Intralipid 20% 250 ML @ 21 mls/ 250 / 250 hr IVPB DAILY@1700 [facility] Rx#: [id number] Flagyl Premix 500 MG/100 ML 500 100 / 100 100 / 100 mg In 100 ml @ 100 mls/hr IVPB Q8HR [facility] Rx#:[id number] Oral 0 / 0 Output: Urine 450 / 450 450 / 450 Catheter 600 / 600 300 / 300 Wound Drainage 180 / 180 160 / 160 Left Lower Abdomen 180 / 180 160 / 160 Other: Meal NPO Stool Size Small Stool Consistency liquid Stool Color Brown Green Weight 77.366 kg Blood Glucose* 131 101 Patient Weight 08/20/17 23:59 Weight 77.366 kg - General physical appearance well developed, well nourished, no distress - Respiratory normal expansion, normal respiratory effort, clear to auscultation - Cardiovascular Cardiovascular exam: Present: RRR - Abdomen Abdomen: Present: soft (mildly distended, significantly improved from 2 nights ago and yesterday), tender (appropriately tender to palpation) - Incision Incision: Present: clean and dry, intact - Neurologic CN 2-12 grossly intact - Musculoskeletal other (FROM in UE/LE b/l) - Labs 08/17/17 05:00 08/19/17 05:50 - VTE Documentation of Mechanical Device: Intermittent pneumatic compression device Consult Discharge Plan - Plan Referrals: [facility] [Outside]
[2017-08-20] MEDS: *HR* OxyCODONE/APAP 10/325 TABLET PO PRN ×2 (12:20→18:00)
[2017-08-20] MEDS: Ondansetron 4 MG/2 ML VIAL IVP PRN (16:54)
[2017-08-20] MEDS ORDERED: Clinimix E 5%-15% SOLUTION 2,000 ML with MVI, adult with vitamin K 10 ML IVC SCH (17:00)
[2017-08-21] MEDS: MetroNIDAZOLE 500 MG/100 ML 500 MG/100 ML BAG IVPB SCH (00:42)
[2017-08-21] MEDS: *HR* OxyCODONE/APAP 10/325 TABLET PO PRN ×4 (00:43→18:07)
[2017-08-21] MEDS: *HR* Metoprolol 5 MG/5 ML VIAL IVP SCH ×4 (00:43→17:26)
[2017-08-21] MEDS: Ipratropium/Albuterol Neb 3 ML IH SCH ×7 (01:01→23:05)
[2017-08-21] MEDS: *HR* HYDROmorphone (PF) 1 MG/ML SYRINGE IVP PRN ×4 (02:06→20:35)
[2017-08-21] MEDS: Pantoprazole 40 MG VIAL IVP SCH ×2 (05:26→17:26)
[2017-08-21] MEDS: Nicotine 14 MG PATCH.TD24 TD SCH (07:00)
--- NOTE | 2017-08-21 07:35 | General Surgery Progress Note ---
<Alexandria Barillas - Last Filed: 08/21/17 09:21> Date of Encounter: 08/21/17 Time of Encounter: 06:40 - Assessment and Plan (1) Colovesical fistula Current Visit: Yes Status: Acute Patient has a chief complaint of suprapubic abdominal pain for [address] scan at NH showed colovestical fistula, most likely due to diverticulosis. Patient has been febrile and was started on Cipro and Flagyl. Urology was consulted and believes patient does not require a CT urogram and CT cystogram as images clearly show the site of fistula between the sigmoid colon and the dome of the bladder. Patient will require surgery to resolve the fistula. Cardiology was consulted due to patient having recent cardiac catheter with stent placement 6 weeks ago and is on Plavix and aspirin. Cardiology recommended stopping Plavix and starting Lovenox for 5 days until surgery. Colonoscopy showed: multiple small and large-mouthed diverticula in the sigmoid colon. Severe angulation at the rectosigmoid at the suspected area of fistula. POD 4 (08/14/17 Dr. Thao) of sigmoid colectomy with primary anastomosis and resection of the dome of the bladder (colovesical fistula). Patient is now having flatus and has had a couple of small BM. Denies N/V despite advancement to restricted clears yesterday. Incision clean, dry and intact. NITA drained 525ml over the last 24 hrs. creatinine of NITA drainage was within normal limits therefore no leak. Will advance diet to fulls today. TPN will continue until patient tolerating fulls. Plan: - TPN at total fluid rate at TPN goal - Diet: advance to fulls -Will pull NITA drain today - Add Plavix today, continue Lovenox until tomorrow - stop Flagyl and Cipro - Incisions are clean, dry, and intact; no signs of infection noted - duonebs and incentive spirometry 10 x 2hrs while awake - nicotine patches - (2) Pneumaturia Current Visit: Yes Status: Resolved Secondary to cholovestical fistula. CT of the abdomen and pelvis shows abnormal gas seen within the bladder. Lea currently present. S/P sigmoid colectomy with primary anastomosis with resection of the dome of the bladder. Resolved. (3) CAD (coronary artery disease) Current Visit: Yes Status: Acute Patient heart catheter with cardiac stent placed 6 weeks ago. Patient is on Plavix and aspirin for therapy. Per Cardiology's recommendations, plavix stopped 08/09 and Lovenox added. Continuing on Lovenox but will add Plavix today. Qualifiers: Coronary Disease-Associated Artery/Lesion type: [place] artery [place] vs. transplanted heart: [place] heart Associated angina: with stable angina Qualified Code(s): I25.118 - Atherosclerotic heart disease of [place] coronary artery with other forms of angina pectoris (4) HTN (hypertension) Current Visit: Yes Status: Chronic lopressor 5mg IVP Q6hrs. BP well controlled. Qualifiers: Hypertension type: unspecified Qualified Code(s): I10 - Essential (primary ) hypertension (5) Tobacco abuse Current Visit: Yes Status: Acute Patient given nicotine patch 14 mg daily. (6) Diverticulosis Current Visit: Yes Status: Acute CT of the abdomen and pelvis from the NH shows extensive diverticulosis of the sigmoid colon and to a lesser degree the remainder of the colon. Most likely cause of the colovesticular fistula. Confirmed diverticulosis of the sigmoid colon on colonoscopy. Qualifiers: Diverticulosis site: diverticulosis of large intestine Qualified Code(s): K57.30 - Diverticulosis of large intestine without perforation or abscess without bleeding (7) Hypokalemia, gastrointestinal losses Current Visit: Yes Status: Resolved Hypokalemia has resolved. Patient currently on TPN. Continue to monitor in the morning. (8) Insomnia Current Visit: Yes Status: Acute Patient has been having trouble sleeping in the hospital. Patient given Benadryl , Melatonin, and Ambien. Qualifiers: Insomnia type: adjustment Qualified Code(s): F51.02 - Adjustment insomnia Subjective Narrative: Mr. Alamo is a 66 year old male with a past medical history of cardiac stent 6 weeks ago, hypertension, hyperlipidemia came in with a chief complaint of abdominal pain 2 weeks. Patient was a NH transfer to [place] ED for a CT finding of a vesticulo-sigmoid fistula admitted to the surgical service. Patient is s/p a sigmoid colectomy with primary anastomosis and resection of the dome of the bladder (colovesical fistula). Today patient is doing well. His diet was advanced to restricted clears yesterday and he is tolerating that without nausea or vomiting. Patient's last BM was yesterday morning but he has been passing gas. Patient slept better last night. Objective Vital Signs - Last 8 Hours Temp Pulse Resp BP Pulse Ox 08/21/17 07:10 98.2 F 59 14 125/61 95 08/21/17 04:01 98.5 F 63 19 126/69 98 08/21/17 00:15 99.0 F 73 18 142/71 94 Intake and Output 08/20/17 08/20/17 08/21/17 15:59 23:59 07:59 Intake Total 100 / 100 300 / 300 0 / 0 Output Total 710 / 710 605 / 605 675 / 675 Balance -610 / -610 -305 / -305 -675 / -675 Intake: IV Fluids 100 / 100 300 / 300 Cipro Premix 400 MG/200 ML 400 200 / 200 mg In 200 ml @ 200 mls/hr IVPB Q12HR [facility] Rx#:[id number] Flagyl Premix 500 MG/100 ML 500 100 / 100 100 / 100 mg In 100 ml @ 100 mls/hr IVPB Q8HR [facility] Rx#:[id number] Oral 0 / 0 0 / 0 0 / 0 Output: Catheter 650 / 650 500 / 500 475 / 475 Wound Drainage 60 / 60 105 / 105 200 / 200 Left Lower Abdomen 60 / 60 105 / 105 200 / 200 Other: Meal npo Weight 77.309 kg Blood Glucose* 130 130 Patient Weight 08/21/17 23:59 Weight 77.309 kg - Additional Exam Constitutional: Alert, in no acute distress, well nourished, well developed. Head: Normocephalic, atraumatic, normal contour and symmetric, no masses, lesions or scars Heart: Normal, regular rate and rhythm, no murmurs Lungs: decrease wheezing from days prior, no rales, rhonchi Abdomen: midline incision stapled, well approximated without drainage and healing well without signs of infection, NITA drain LLQ draining clear with light yellow tinge, decreased distension from yesterday and mild tenderness diffusely , Soft, with no masses palpable, bowel sounds present and normal, no guarding or rigidity. Extremities: No clubbing, cyanosis, or edema, radial pulse +2/4, capillary refill <2sec. Skin: Skin warm and dry, no lesions, no rashes, no jaundice : lea present urine yellow, orange, scrotum without edema, Neurologic: Cranial nerves II through XII grossly intact, no focal deficits, strength within normal limits in all extremities Psych: Cooperative with exam, good eye contact, cognitive function intact, judgment good insight good, speech clear, thought process logical, and goal directed - Labs 08/17/17 05:00 08/19/17 05:50 - VTE Documentation of Mechanical Device: Intermittent pneumatic compression device Consult Discharge Plan - Plan Referrals: [facility] [Outside] <Brice Thao - Last Filed: 08/22/17 07:18> Date of Encounter: 08/21/17 Objective Vital Signs - Last 8 Hours Temp Pulse Resp BP Pulse Ox 08/22/17 06:58 99.3 F 83 15 134/77 95 08/22/17 04:15 99.5 F 72 17 159/77 94 08/21/17 23:38 99.6 F 81 18 161/79 93 Intake and Output 08/21/17 08/21/17 08/22/17 15:59 23:59 07:59 Intake Total 960 / 960 480 / 480 250 / 250 Output Total 1050 / 1050 650 / 650 700 / 700 Balance -90 / -90 -170 / -170 -450 / -450 Intake: IV Fluids 250 / 250 Intralipid 20% 250 ML @ 21 mls/ 250 / 250 hr IVPB DAILY@1700 [facility] Rx#: [id number] Oral 960 / 960 480 / 480 0 / 0 Output: Urine 500 / 500 Catheter 800 / 800 150 / 150 700 / 700 Wound Drainage 250 / 250 0 / 0 Left Lower Abdomen 250 / 250 0 / 0 Other: Meal Dinner Percent of Meal Consumed 75% Blood Glucose* 118 123 121 - Labs 08/21/17 11:59 08/21/17 11:59 Diabetes panel 08/21/17 Range/Units 11:59 Sodium 133 L (136-145) mEq/L Potassium 4.3 (3.5-4.5) mEq/L Chloride 100 (98-109) mEq/L Carbon Dioxide 28 (19-29) mEq/L BUN 13 (8-26) mg/dL Creatinine 0.69 L (0.72-1.25) mg/dL Glucose 124 H (70-99) mg/dL Calcium 8.7 (8.6-10.8) mg/dL Calcium panel 10/09/17 Range/Units 11:59 Calcium 8.7 (8.6-10.8) mg/dL Pituitary panel 08/21/17 Range/Units 11:59 Sodium 133 L (136-145) mEq/L Potassium 4.3 (3.5-4.5) mEq/L Chloride 100 (98-109) mEq/L Carbon Dioxide 28 (19-29) mEq/L BUN 13 (8-26) mg/dL Creatinine 0.69 L (0.72-1.25) mg/dL Glucose 124 H (70-99) mg/dL Calcium 8.7 (8.6-10.8) mg/dL Adrenal panel 08/21/17 Range/Units 11:59 Sodium 133 L (136-145) mEq/L Potassium 4.3 (3.5-4.5) mEq/L Chloride 100 (98-109) mEq/L Carbon Dioxide 28 (19-29) mEq/L BUN 13 (8-26) mg/dL Creatinine 0.69 L (0.72-1.25) mg/dL Glucose 124 H (70-99) mg/dL Calcium 8.7 (8.6-10.8) mg/dL - Attending Attestation I examined this patient and my medical decision-making was reviewed with the Resident Physician. I agree with the documented findings, disposition and treatment plan as described except to the extent set forth below. The patient is seen and evaluated in the morning rounds with the resident. The care plan as discussed in depth. On physical examination the patient looks very well has good bowel sounds and there is no evidence of infection at the incision. The William-Russo drain can be removed at this point. We will maintain the Lea catheter. He is having bowel movements. We will advance his diet and wean his TPN to off. Brice Thao MD FACS
[2017-08-21] MEDS: *HR* Enoxaparin 80 MG/0.8 ML SYRINGE SQ SCH ×2 (09:29→18:07)
[2017-08-21] MEDS: Aspirin 81 MG TAB.CHEW PO SCH (09:29)
[2017-08-21] MEDS: Albuterol 2.5 MG/3 ML NEBULIZER IH SCH ×3 (10:41→22:27)
[2017-08-21 12:16] LABS: Basophils % 0.3 %; Eosinophils # 0.2 K/mcL (0.0-0.6); Eosinophils % 1.6 %; Hematocrit 35.8 % (37.5-50.1); Hemoglobin 11.7 g/dL (12.9-16.9); Lymphocytes # 1.1 K/mcL (0.6-4.6); Lymphocytes % 9.4 %; Mean Corpuscular HGB Conc 32.7 g/dL (31.6-35.5); Mean Corpuscular Hemoglobin 28.1 pg (28.0-33.3); Mean Corpuscular Volume 86.1 fL (83.0-100.0); Mean Platelet Volume 9.9 fL (9.4-12.4); Monocytes # 1.2 K/mcL (0.0-1.3); Neutrophils # 9.3 K/mcL (1.6-8.9); Platelet Count 353 K/mcL (140-400); Red Blood Count 4.16 M/mcL (4.19-5.50); Segmented Neutrophils % 77.7 %
[2017-08-21 12:29] LABS: BUN/Creatinine Ratio 19 (6-26); Blood Urea Nitrogen 13 mg/dL (8-26); Calcium 8.7 mg/dL (8.6-10.8); Carbon Dioxide 28 mEq/L (19-29); Chloride 100 mEq/L (98-109); Glucose 124 mg/dL (70-99); Magnesium 1.9 mg/dL (1.6-2.6); Osmolality,Calculated 278 (280-300); Potassium 4.3 mEq/L (3.5-4.5); Sodium 133 mEq/L (136-145); eGFR For African Americans > 60 (> 60); eGFR For Non-African Americans > 60 (> 60)
--- NOTE | 2017-08-21 15:17 | Event Note ---
Date of Encounter: 08/21/17 Time of Encounter: 15:16 Left NITA drain d/c'd without complication. Pt tolerated procedure well.
[2017-08-21] MEDS ORDERED: Clinimix E 5%-15% SOLUTION 2,000 ML with MVI, adult with vitamin K 10 ML IVC SCH (17:00)
[2017-08-22] MEDS: *HR* Metoprolol 5 MG/5 ML VIAL IVP SCH ×3 (00:47→11:51)
[2017-08-22] MEDS: *HR* HYDROmorphone (PF) 1 MG/ML SYRINGE IVP PRN ×3 (00:48→09:35)
[2017-08-22] MEDS: Ipratropium/Albuterol Neb 3 ML IH SCH ×3 (03:01→11:06)
[2017-08-22] MEDS: Pantoprazole 40 MG VIAL IVP SCH (05:19)
[2017-08-22] MEDS: *HR* Enoxaparin 80 MG/0.8 ML SYRINGE SQ SCH (05:19)
[2017-08-22] MEDS: Albuterol 2.5 MG/3 ML NEBULIZER IH SCH (08:09)
[2017-08-22] MEDS: Nicotine 14 MG PATCH.TD24 TD SCH (09:29)
[2017-08-22] MEDS: Aspirin 81 MG TAB.CHEW PO SCH (09:29)
[2017-08-22 11:26] VITALS: BP 158/74
[2017-08-22] MEDS: *HR* OxyCODONE/APAP 10/325 TABLET PO PRN (11:51)
--- NOTE | 2017-08-22 13:38 | Discharge Summary ---
<Tammy Street - Last Filed: 08/22/17 13:50> Date of Encounter: 08/22/17 Time of Encounter: 13:30 - Discharge Diagnosis (1) Colovesical fistula Priority: Primary Status: Resolved (2) Diverticulosis Priority: Secondary Status: Acute Qualifiers: Diverticulosis site: diverticulosis of large intestine Diverticulosis bleeding: diverticulosis without bleeding Qualified Code(s): K57.30 - Diverticulosis of large intestine without perforation or abscess without bleeding (3) CAD (coronary artery disease) Priority: Secondary Status: Chronic Qualifiers: Coronary Disease-Associated Artery/Lesion type: [place] artery [place] vs. transplanted heart: [place] heart Associated angina: with stable angina Qualified Code(s): I25.118 - Atherosclerotic heart disease of [place] coronary artery with other forms of angina pectoris (4) HTN (hypertension) Priority: Secondary Status: Chronic Qualifiers: Hypertension type: unspecified Qualified Code(s): I10 - Essential (primary ) hypertension (5) Hypercholesteremia Priority: Secondary Status: Chronic (6) Tobacco abuse Priority: Secondary Status: Chronic (7) Postoperative ileus Priority: Secondary Status: Resolved - Discharge Medications Prescriptions: OxyCODONE/APAP 10/325 [Percocet 10/325 MG] 1 each PO Q4HR PRN #30 tablet PRN Reason: Moderate Pain Ibuprofen [Motrin] 800 mg PO Q8HR #50 tablet Docusate [Colace] 100 mg PO BID #60 capsule Home Medications: Albuterol Sulfate [Albuterol Inhaler] 2 puff IH QID PRN 08/08/17 [History] Aspirin Enteric Coated [Aspirin EC] 81 mg PO DAILY 08/08/17 [History] Atorvastatin Calcium [Lipitor] 80 mg PO HS 08/08/17 [History] Clopidogrel [Plavix] 75 mg PO DAILY 08/08/17 [History] Lisinopril [Zestril] 5 mg PO DAILY 08/08/17 [History] Methocarbamol [Robaxin] 500 mg PO Q6H PRN 08/08/17 [History] Metoprolol [Lopressor] 12.5 mg PO BID 08/08/17 [History] Nicotine Patch [Nicoderm] 14 mg TD DAILY 08/08/17 [History] Sildenafil Citrate [Viagra] 100 mg PO AD PRN 08/08/17 [History] Docusate [Colace] 100 mg PO BID #60 capsule 08/22/17 [Rx] Ibuprofen [Motrin] 800 mg PO Q8HR #50 tablet 08/22/17 [Rx] OxyCODONE/APAP 10/325 [Percocet 10/325 MG] 1 each PO Q4HR PRN #30 tablet [Rx] Allergies/Adverse Reactions: 3 Allergy/AdvReac Type Severity Reaction Status Date / Time azithromycin Allergy See Verified 08/08/17 17:35 Comments Penicillins Allergy See Verified 08/08/17 17:35 Comments General Surgery Exam Initial Vital Signs Temp Pulse Resp BP Pulse Ox 98.5 F 80 16 102/63 95 08/08/17 17:28 08/08/17 17:28 08/08/17 17:28 08/08/17 17:28 08/08/17 17:28 - General physical appearance well developed, well nourished, no distress - Eyes normal ocular movement - ENT normal mucosa, atraumatic, normocephalic - Neck trachea midline - Respiratory normal expansion, normal respiratory effort, clear to auscultation - Cardiovascular Cardiovascular exam: Present: RRR - Abdomen Abdomen general surgery: Present: bowel sounds present, soft, tender (Minimal, expected postoperative tenderness), wound (Left lower quadrant drain site with serous drainage noted. No surrounding erythema or induration noted.) - Incision Incision: Present: clean and dry, intact - Genitourinary Present: other (Lea catheter to straight drain with clear, yellow urine) - Integumentary Integumentary general surgery: Present: warm and dry - Neurologic Present: CN 2-12 grossly intact - Musculoskeletal Present: normal gait, normal posture - Psychiatric Psychiatric general surgery: Present: appropriate, oriented to person, oriented to place, oriented to time, speech is normal, memory intact Date of admission: 08/08/17 18:29 [facility] care physician: [facility] Consults: 08/08/17 19:06 Consult to Urology [CONS] Stat Consulting Provider: Urology [facility] Reason for Consult: inability to place lea, pneumaturia Call Completed: No 08/09/17 08:01 Consult to Cardiology [CONS] Routine Comment: Consulting Provider: Card[facility] [place] Reason for Consult: recommendation for anticoagulation therapy for surgery Time Notified: 08:04 Call Completed: Yes 08/14/17 10:03 Consult to Invasive Line Access Team [CONS] Stat Reason for Consult: Insert PICC for TPN Line Type: PICC dietary consult [Consult to Nutrition] [CONS] Routine Comment: Total IVF (TPN and MIV) 80 ml/hr Consulting Provider: NUTRITION Reason for Dietary Consult: TPN Start and Manage 08/14/17 11:52 Consult to Invasive Line Access Team [CONS] Routine Reason for Consult: Picc Line Insertion Line Type: PICC 08/15/17 10:53 Consult to Physical Therapy [CONS] Routine Comment: Evaluate, develop and implement POC Reason for Consult: D/c planning s/p sigmoid resection OT [Consult to Occupational Therapy] [CONS] Routine Comment: Evaluate, develop and implement POC Reason for Consult: D/c planning s/p sigmoid resection Discharging clinician: Brice Thao ([address]) Anticipated date of discharge: 08/22/17 - Patient Status Disposition: Home, Self-Care Condition: Good Functional capacity at discharge: independent ambulation Overall status at discharge: patient is progressing back to baseline - Discharge Instructions Instructions: Ibuprofen (By mouth), Oxycodone/Acetaminophen (By mouth), Laxative, Stool Softeners (By mouth), Diverticulitis (DC), Lea Catheter Placement and Care (DC), Chronic Hypertension (DC) Follow Up With: [facility] [Outside] (Please contact your Primary Care Provider at the [facility] to schedule your 1 week hospital follow-up. [phone]. Thank You!) Tammy Street SOUND CUTTER [Advanced Practice Nurse] - 08/28/17 10:30 am (surgery follow-up; review cystogram and assess for removal of lea catheter) Additional Instructions: #1 may shower daily, no tub bath for 2 weeks #2 wash incisions with soap and water and pat dry daily #3 no lifting, pushing, pulling more than 15 pounds for the next 6 weeks #4 no driving until off narcotics for 24 hours and able to safely react in the car #5 may climb stairs #6 cleanse around the drain tube site with soap and water daily, apply 4 x 4 gauze dressing, tape to secure with paper tape. Continue dressing changes as long as site is draining. #7 cleanse around Lea catheter with soap and water in the shower daily, pat dry. Empty Lea catheter when one third full and as needed. - Diet and Activity Activity: other (See additional instructions above) Diet: advance to your usual diet - Hospital Course Hospital course: Mr. Alamo is a 66 year old male who was admitted to the hospital with a colovesicular fistula secondary to diverticulitis. He was placed on IV antibiotics and supportive care was initiated for 6 days prior to operative intervention. Urology was consulted for input regarding colovesicular fistula. He was started on TPN therapy for nutritional support. The patient was taken to the operating room for #1 sigmoid colectomy #2 resection of the dome of the bladder (colovesical fistula) with Dr. Thao. His postoperative course was complicated by a postoperative ileus. He was treated with conservative measures including bowel rest. The patient was advanced to a clear liquid diet with return of bowel function. His diet was slowly advanced as tolerated. He is currently tolerating a soft diet. His Lea catheter has been continued due to the resection of the dome of the bladder. We will complete a cystogram in 1 week and evaluate for removal of Lea catheter at that time. The patient's vital signs are stable and he is afebrile. His pain is well-controlled. His TPN therapy has been weaned to off and he is meeting his nutritional needs with by mouth intake. He is ambulating the hallways multiple times per day. His laboratory values are stable. His surgical drain was removed on postoperative day #7. We will begin discharge planning to home and plan for outpatient follow -up in the next 1 week. - Time Spent with Patient Total time spent providing and/or coordinating discharge services: Less than 30 minutes Labs on day of discharge: Labs from last 24 hours 08/21/17 08/21/17 08/21/17 23:38 20:13 15:55 POC Glucose 123 H 160 H 118 H 08/21/17 08/21/17 08/20/17 04:06 00:19 20:27 POC Glucose 130 H 120 H 130 H - Attending Attestation For this encounter, I have reviewed the GLUING MACHINE OPERATOR or PA documentation, treatment plan, and medical decision making; and I have had face to face time with this patient. <Brice Thao - Last Filed: 08/23/17 08:43> Date of Encounter: 08/22/17 General Surgery Exam Initial Vital Signs Temp Pulse Resp BP Pulse Ox 98.5 F 80 16 102/63 95 08/08/17 17:28 08/08/17 17:28 08/08/17 17:28 08/08/17 17:28 08/08/17 17:28 Date of admission: 08/08/17 18:29 Primary care physician: PCP [facility] Consults: 08/08/17 19:06 Consult to Urology [CONS] Stat Consulting Provider: Urology [facility] Reason for Consult: inability to place lea, pneumaturia Call Completed: No 08/09/17 08:01 Consult to Cardiology [CONS] Routine Comment: Consulting Provider: Cardiology [place] Reason for Consult: recommendation for anticoagulation therapy for surgery Time Notified: 08:04 Call Completed: Yes 08/14/17 10:03 Consult to Invasive Line Access Team [CONS] Stat Reason for Consult: Insert PICC for TPN Line Type: PICC dietary consult [Consult to Nutrition] [CONS] Routine Comment: Total IVF (TPN and MIV) 80 ml/hr Consulting Provider: NUTRITION Reason for Dietary Consult: TPN Start and Manage 08/14/17 11:52 Consult to Invasive Line Access Team [CONS] Routine Reason for Consult: Picc Line Insertion Line Type: PICC 08/15/17 10:53 Consult to Physical Therapy [CONS] Routine Comment: Evaluate, develop and implement POC Reason for Consult: D/c planning s/p sigmoid resection OT [Consult to Occupational Therapy] [CONS] Routine Comment: Evaluate, develop and implement POC Reason for Consult: D/c planning s/p sigmoid resection - Hospital Course Hospital course: Mr. Alamo is a 66 year old male - Time Spent with Patient Total time spent providing and/or coordinating discharge services: Labs on day of discharge: Labs from last 24 hours 08/22/17 08/22/17 08/22/17 13:16 07:49 04:11 POC Glucose 122 H 111 H 121 H - Attending Attestation I have personally performed a face to face evaluation on this patient. I have reviewed and agree with the care plan. History and Exam by me shows: The patient was seen and evaluated on morning rounds. He will be ready for discharge this afternoon. Follow-up in my office with cystogram for Lea catheter removal next week. Brice Thao MD FACS
== END 2017-08-22 14:57 | disposition home or self-care (01) | DRG 654 ==
LOC: EMEROO 17:26 → 3ANU 18:29
PROVIDERS: ADMIT Surgery; ATTEND Surgery